=== PATIENT | male | born 1935 | race Caucasian/White ===

== ENCOUNTER 2017-01-06 09:38 | Inpatient (IN) | payer MEDICARE ==
[2017-01-06] VITALS (7 sets, daily range): BP systolic 120–153; BP diastolic 60–72; PULSE 78–95; RESP 18–20; TEMP 97.7–98.4; O2SAT 95–97
[~2017-01-06] VITALS: Ht 188 cm; Wt 111.5 kg
[~2017-01-06 09:38] MED LIST: AMLO5TAB96 PO; ASPI81 PO; SIMV20TA PO; TAB-TAB PO; ZOLP10TA3 PO
[2017-01-06] MEDS ORDERED: ASPI81CH CHEW (09:54)
[2017-01-06] MEDS ORDERED: LISI-519 PO (09:54)
[2017-01-06] MEDS ORDERED: SIMV20TA PO (09:54)
[2017-01-06] MEDS ORDERED: AMLO5TAB2 PO (09:54)
[2017-01-06] MEDS ORDERED: ZOLP10TA3 PO (09:54)
[2017-01-06] MEDS ORDERED: ASPIRIN 81 MG CHEW TAB PO ONE (10:00)
[2017-01-06] MEDS ORDERED: SODIUM CHLORIDE 0.9% FLUSH 10 ML FLUSH IVF PRN (10:00)
--- NOTE | 2017-01-06 10:01 | PD ---
HPI Chief Complaint: General Weakness Time Seen by Provider: 09:51 Travel History International Travel<30 days: No Contact w/Intl Traveler<30days: No Traveled to known affect area: No History of Present Illness HPI Patient is an 81-year-old male with history of age fibrillation on aspirin 81 mg a day presents emergency department for evaluation of shortness of breath on exertion. He states and present for the past week. States been discussing this with his combat control manager Dr. Fletcher. He states his been 5 years since she's had a stress test. Denies any chest discomfort. He does endorse some diaphoresis and states he sweating like his blood sugars getting really low. The patient states that Dr. Randall told him that an artery is blocked behind the bone on the left side of his heart and the only way to fix it would be to open his chest. 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 Patient states his been offered Coumadin the past but it scares him so he doesn't want to take it. Denies any leg swelling abdominal pain blood in the stool or emesis. States symptoms been gradually worsening. He thinks that this is all related to his age fibrillation his heart acting up. PFSH Past Medical History Hx Anticoagulant Therapy: Yes Blood Disorders: No Depression: Yes Heart Rhythm Problems: No Cancer: No Cardiovascular Problems: Yes High Cholesterol: No Cerebrovascular Accident: Yes Diabetes: Yes Patient Takes Glucophage: Yes Endocrine: No Gastrointestinal Disorders: Yes GERD: Yes Genitourinary: No Hiatal Hernia: Yes Hypertension: Yes Immune Disorder: No Implanted Vascular Access Dvce: Yes Musculoskeletal: Yes Neurologic: Yes Psychiatric: Yes Reproductive: No Respiratory: Yes Myocardial Infarction: Yes Sleep Apnea: Yes (pt uses c-pap at [facility]) Past Surgical History Abdominal Surgery: Yes (x5 abd hernia hemorroidectomy) Body Medical Devices: wire mesh to the chest" Cardiac Surgery: Yes (triple by-pass 1992) Thoracic Surgery: Yes (CABG) Other Surgery: Yes Social History Alcohol Use: Yes (couple of drinks per day) Tobacco Use: No Substance Use: No Allergies-Medications (Allergen,Severity, Reaction): Coded Allergies: No Known Allergies (Verified , 07/28/11) Reported Meds & Prescriptions Reported Meds & Active Scripts Active Reported Zolpidem (Zolpidem Tartrate) 10 Mg Tab 10 Mg PO HS PRN Simvastatin 20 Mg Tab 20 Mg PO DAILY Aspirin 81 Mg Chew 162 Mg CHEW DAILY Lisinopril 5 Mg Tab 5 Mg PO DAILY Amlodipine (Amlodipine Besylate) 5 Mg Tab 5 Mg PO DAILY Review of Systems Except as stated in HPI: all other systems reviewed are Neg Physical Exam Narrative GENERAL: Well-developed well-nourished no obvious distress SKIN: Focused skin assessment warm/dry. HEAD: Atraumatic. Normocephalic. EYES: Pupils equal and round. No scleral icterus. No injection or drainage. ENT: No nasal bleeding or discharge. Mucous membranes pink and moist. NECK: Trachea midline. No JVD. CARDIOVASCULAR: Irregularly irregular with normal rate. No murmur appreciated. No pedal edema, 2+ bilateral equal pulses in all 4 extremities. RESPIRATORY: No accessory muscle use. Clear to auscultation. Breath sounds equal bilaterally. GASTROINTESTINAL: Abdomen soft, non-tender, nondistended. Hepatic and splenic margins not palpable. MUSCULOSKELETAL: No obvious deformities. No clubbing. No cyanosis. No edema. NEUROLOGICAL: Awake and alert. No obvious cranial nerve deficits. Motor grossly within normal limits. Normal speech. PSYCHIATRIC: Appropriate mood and affect; insight and judgment normal. Data Data Last Documented VS Vital Signs Date Time Temp Pulse Resp B/P Pulse Ox O2 Delivery O2 Flow Rate FiO2 01/06/17 11:48 95 18 120/67 97 Room Air 01/06/17 09:42 98.4 Orders B-Type Natriuretic Peptide (01/06/17 10:00) Ckmb (Isoenzyme) Profile (01/06/17 10:00) Complete Blood Count With Diff (01/06/17 10:00) Comprehensive Metabolic Panel (01/06/17 10:00) Magnesium (Mg) (01/06/17 10:00) Prothrombin Time / Inr (Pt) (01/06/17 10:00) Act Partial Throm Time (Ptt) (01/06/17 10:00) Troponin I (01/06/17 10:00) Chest, Single Ap (01/06/17 10:00) Ecg Monitoring (01/06/17 10:00) Iv Access Insert/Monitor (01/06/17 10:00) Oximetry (01/06/17 10:00) Oxygen Administration (01/06/17 10:00) Aspirin Chew (Aspirin Chew) (01/06/17 10:00) Sodium Chloride 0.9% Flush (Ns Flush) (01/06/17 10:00) Electrocardiogram (01/06/17 ) CKMB (01/06/17 10:10) CKMB% (01/06/17 10:10) Sodium Chlorid 0.9% 500 Ml Inj (Ns 500 M (01/06/17 12:00) Ct Pulmonary Angiogram (01/06/17 ) Iodixanol 320 Inj (Rad Ct) (Visipaque 32 (01/06/17 13:02) Consult Vascular Surgery (01/06/17 ) Consult Cardiology (01/06/17 ) (Hub Use Only)Inp Phy Cons/Ref (01/06/17 ) Admit Order (Ed Use Only) (01/06/17 ) Place In Observation (01/06/17 ) Code Status (01/06/17 14:26) Vital Signs (Adult) Q4H (01/06/17 14:26) Activity Oob With Assistance (01/06/17 14:26) Sodium Chloride 0.9% Flush (Ns Flush) (01/06/17 14:30) Sodium Chloride 0.9% Flush (Ns Flush) (01/06/17 21:00) Acetaminophen (Tylenol) (01/06/17 14:30) Temazepam (Restoril) (01/06/17 14:30) Creatine Kinase (Cpk) (01/06/17 16:00) Creatine Kinase (Cpk) (01/06/17 22:00) Troponin I (01/06/17 16:00) Troponin I (01/06/17 22:00) Electrocardiogram (01/06/17 16:00) Electrocardiogram (01/06/17 22:00) Pt Request For Service (01/06/17 14:26) Case Management Consult (01/06/17 14:26) Scd Bilateral/Knee High CHETAN.BID (01/06/17 14:26) Viet Bilateral/Knee High CHETAN.QSHIFT (01/06/17 14:26) Acetaminophen (Tylenol) (01/06/17 14:30) Magnesium Hydroxide Liq (Milk Of Magnesi (01/06/17 14:30) Echo 2d Comp With Doppler (01/06/17 ) Myocardial Perf Pharm Sp W/Ef (01/07/17 06:00) Labs Laboratory Tests Test 01/06/17 10:10 White Blood Count 8.3 TH/MM3 Red Blood Count 5.11 MIL/MM3 Hemoglobin 17.3 GM/DL Hematocrit 50.1 % Mean Corpuscular Volume 98.0 FL Mean Corpuscular Hemoglobin 33.9 PG Mean Corpuscular Hemoglobin 34.6 % Concent Red Cell Distribution Width 13.5 % Platelet Count 202 TH/MM3 Mean Platelet Volume 7.6 FL Neutrophils (%) (Auto) 51.7 % Lymphocytes (%) (Auto) 32.8 % Monocytes (%) (Auto) 11.5 % Eosinophils (%) (Auto) 3.3 % Basophils (%) (Auto) 0.7 % Neutrophils # (Auto) 4.3 TH/MM3 Lymphocytes # (Auto) 2.7 TH/MM3 Monocytes # (Auto) 1.0 TH/MM3 Eosinophils # (Auto) 0.3 TH/MM3 Basophils # (Auto) 0.1 TH/MM3 CBC Comment DIFF FINAL Differential Comment Prothrombin Time 10.5 SEC Prothromb Time International 1.0 RATIO Ratio Activated Partial 24.8 SEC Thromboplast Time Sodium Level 136 MEQ/L Potassium Level 4.2 MEQ/L Chloride Level 101 MEQ/L Carbon Dioxide Level 25.5 MEQ/L Anion Gap 10 MEQ/L Blood Urea Nitrogen 30 MG/DL Creatinine 1.67 MG/DL Estimat Glomerular Filtration 40 ML/MIN Rate Random Glucose 120 MG/DL Calcium Level 10.1 MG/DL Magnesium Level 2.4 MG/DL Total Bilirubin 0.6 MG/DL Aspartate Amino Transf 31 U/L (AST/SGOT) Alanine Aminotransferase 48 U/L (ALT/SGPT) Alkaline Phosphatase 34 U/L Total Creatine Kinase 128 U/L Creatine Kinase MB 2.5 NG/ML Troponin I LESS THAN 0.02 NG/ML B-Type Natriuretic Peptide 27 PG/ML Total Protein 8.0 GM/DL Albumin 3.8 GM/DL [facility] Medical Decision Making Medical Screen Exam Complete: Yes Emergency Medical Condition: Yes Interpretation(s) EKG shows age fibrillation with an overall rate of 83, multiple PVCs unifocal, no concerning ST segment changes. This an abnormal EKG. Differential Diagnosis ACS, PE, WA, dehydration. Narrative Course Patient is an 81-year-old male roomed emergency Department with dyspnea on exertion and fatigue. His also endorses some diaphoresis on exertion. His labs are significant for a mild acute kidney injury with a creatinine 1.67. radiologist stress with processing technician, the patient is within windows and GFR for pulmonary blisters and study and is been so ordered. 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 This is calcified and likely been chronic. He was discussed with Dr. Valdovinos who will see in consultation. Patient is also been discussed with Dr. Cabrera's who will see and likely due to stress test and echocardiogram and hospital. Patient ultimately discussed with hospitalist for admission. He has been hemodynamically stable and has had not had any chest pain or shortness of breath while in emerged Department. Diagnosis Primary Impression: ARF (acute renal failure) Additional Impression: Exertional dyspnea Admitting Information Admitting Physician Requests: Admit Condition: Stable Pito Moran MD Jan 06, 2017 10:01
[2017-01-06 10:45] LABS: AUTOMATED NEUTROPHIL # 4.3 TH/MM3 (1.8-7.7); BASOPHIL # 0.1 TH/MM3 (0-0.2); BASOPHIL % 0.7 % (0.0-2.0); EOSINOPHIL # 0.3 TH/MM3 (0-0.4); EOSINOPHIL % 3.3 % (0.0-4.0); HEMATOCRIT 50.1 % (39.0-51.0); HEMO FLAGS DIFF FINAL; LYMPH % 32.8 % (9.0-44.0); LYMPHOCYTE # 2.7 TH/MM3 (1.0-4.8); MEAN CORPUSCULAR HEMOGLOBIN 33.9 PG (27.0-34.0); MEAN CORPUSCULAR HGB CONC 34.6 % (32.0-36.0); MONO % 11.5 % (0.0-8.0); NEUT % 51.7 % (16.0-70.0); PLATELET COUNT 202 TH/MM3 (150-450); RED BLOOD COUNT 5.11 MIL/MM3 (4.50-5.90); RED CELL DISTRIBUTION WIDTH 13.5 % (11.6-17.2); WHITE BLOOD COUNT 8.3 TH/MM3 (4.0-11.0)
[2017-01-06 10:50] LABS: APTT (PATIENT) 24.8 SEC (24.3-30.1); PROTHROMBIN TIME - PATIENT 10.5 SEC (9.8-11.6)
--- NOTE | 2017-01-06 10:55 | RADRPT ---
EXAM DATE/TIME: 01/06/2017 10:04 [facility] COMPARISON: No previous studies available for comparison. INDICATIONS : Palpitations. MEDICAL HISTORY : None. SURGICAL HISTORY : CABG. carotid surgery ENCOUNTER: Initial ACUITY: 1 day PAIN SCORE: 0/10 LOCATION: Bilateral chest FINDINGS: 2 portable frontal views of the chest show mild cardiomegaly. No significant pulmonary vascular engor gement. Lungs are clear without infiltrate or effusion. Median sternotomy wires. CONCLUSION: Cardiomegaly without acute cardiopulmonary disease. Zeke James Jr., MD on January 06, 2017 at 10:52 Board Certified Radiologist. This report was verified electronically.
[2017-01-06 10:56] LABS: ALT (GPT) 48 U/L (12-78)
[2017-01-06 10:58] LABS: ANION GAP 10 MEQ/L (5-15); AST (GOT) 31 U/L (15-37); BICARBONATE 25.5 MEQ/L (21.0-32.0); BLOOD UREA NITROGEN 30 MG/DL (7-18); CHLORIDE 101 MEQ/L (98-107); GLOMERULAR FILTRATION RATE 40 ML/MIN (>89); MAGNESIUM 2.4 MG/DL (1.5-2.5); POTASSIUM 4.2 MEQ/L (3.5-5.1); SODIUM (NA) 136 MEQ/L (136-145)
[2017-01-06 11:00] LABS: ALKALINE PHOSPHATASE 34 U/L (45-117); CREATINE KINASE 128 U/L (39-308); TOTAL BILIRUBIN ADULT 0.6 MG/DL (0.2-1.0)
[2017-01-06 11:13] LABS: CKMB 2.5 NG/ML (0.5-3.6)
[2017-01-06] MEDS ORDERED: SODIUM CHLORID 0.9% 500 ML INJ 500 ML IV ONE (12:00)
--- NOTE | 2017-01-06 12:38 | EKG ---
Date Performed: 01/06/2017 Time Performed: 09:55:06 PTAGE: 81 years EKG: ATRIAL FIBRILLATION WITH ABERRANT CONDUCTION OR VENTRICULAR PREMATURE COMPLEXES NONSPECIFIC ST & T-WAVE ABNORMALITY ABNORMAL ECG NO PREVIOUS TRACING DOCTOR: Zbigniew Dickerson Interpretating Date/Time 01/06/2017 12:35:57
[2017-01-06] MEDS ORDERED: IODIXANOL 320 MG/ML 10 ML VIAL (for Rad CT) IV ONE (13:02)
--- NOTE | 2017-01-06 13:21 | RADRPT ---
EXAM DATE/TIME: 01/06/2017 12:46 [facility] COMPARISON: No previous studies available for comparison. INDICATIONS : Shortness of breath with exhertion and general weakness. IV CONTRAST: 50 cc Visipaque (iodixanol) IV RADIATION DOSE: 23.40 CTDIvol (mGy) MEDICAL HISTORY : Cardiovascular disease. Hypertension. Syncope SURGICAL HISTORY : CABG 3 way bypass ENCOUNTER: Initial ACUITY: 1 day PAIN SCALE: 0/10 LOCATION: Bilateral chest TECHNIQUE: Volumetric scanning of the chest was performed using a pulmonary embolism protocol MIP images were re constructed. Using automated exposure control and adjustment of the mA and/or kV according to patien t size, radiation dose was kept as low as reasonably achievable to obtain optimal diagnostic quality images. DICOM format image data is available electronically for review and comparison. Follow-up recommendations for incidentally detected pulmonary nodules are based at a minimum on nodul e size and patient risk factors according to Fleischner Society Guidelines. FINDINGS: PULMONARY ARTERIES: No filling defects are seen in the pulmonary arteries through the segmental level. LUNGS: A partially calcified a 5 mm nodule laterally in the right lower lobe is overtly benign probably repr esenting a granulomatous process. There is some pleural-parenchymal interstitial changes predominantl y apices which are nonspecific but could represent early UIP. PLEURAE: Multiple subpleural cysts are seen predominantly in the apices. MEDIASTINUM: Dense atherosclerotic calcification of the coronary arteries. There is a 4.1 cm rim calcified fusifor m aneurysm of the aortic arch in the region of the left subclavian artery. Multiple coronary artery b ypass grafts emanates in the ascending thoracic aorta MUSCULOSKELETAL: Within normal limits for patient age. MISCELLANEOUS: The visualized upper abdominal organs demonstrate no acute abnormality. CONCLUSION: 1. Probable chronic changes in the lungs with subpleural cysts in the apices and some pleural parench ymal interstitial changes dependently possibly representing early UIP/fibrosis. 2. Old granulomatous disease. 3. No pulmonary embolus or acute infiltrate. 4. 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 5. Dense atherosclerotic calcification of the coronary arteries. Multiple coronary artery bypass noemi t emanating from the ascending thoracic aorta. Arvin Dsouza MD on January 06, 2017 at 13:13 Board Certified Radiologist. This report was verified electronically.
[2017-01-06] MEDS ORDERED: ACETAMINOPHEN 325 MG TAB PO PRN ×2 (14:30)
[2017-01-06] MEDS ORDERED: TEMAZEPAM 15 MG CAP PO PRN (14:30)
[2017-01-06] MEDS ORDERED: SODIUM CHLORIDE 0.9% FLUSH 10 ML FLUSH IV FLUSH PRN (14:30)
--- NOTE | 2017-01-06 14:32 | HHI.HP ---
HPI Service [facility] Primary Care Physician Non-Staff Admission Diagnosis Exertional Dyspnea, MARIANO Diagnoses: (1) Exertional dyspnea (2) ARF (acute renal failure) Chief Complaint: Shortness of breath Travel History International Travel<30 Days: No Contact w/Intl Traveler <30 Da: No Traveled to Known Affected Are: No History of Present Illness 81-year-old male with a history of diabetes type 2 SC atrial fibrillation came to the ED for evaluation of shortness of breath with exertions 10 days duration associated with cough described as dry. Patient states minimal walking brings about shortness of breath. He also reports mild substernal chest pain without any radiation. He has a history of atrial fibrillation however is not currently on any oral anticoagulation ordered and aspirin. Over the past 5 days patient lost 5 pounds and reported decreased appetite. Patient was supposed to follow up with his cardiology for a nuclear stress test this week. He denies any GI bleed and has no report of orthopnea Review of Systems Except as stated in HPI: all other systems reviewed are Neg Past Family Social History Past Medical History Depression: Yes Cardiovascular Problems: Yes Cerebrovascular Accident: Yes Diabetes: Yes Gastrointestinal Disorders: Yes GERD: Yes Hiatal Hernia: Yes Hypertension: Yes Myocardial Infarction: Yes Sleep Apnea: Yes ([facility]) Past Surgical History Abdominal Surgery: Yes (x5 abd hernia hemorroidectomy) Body Medical Devices: wire mesh to the chest" Cardiac Surgery: Yes (triple by-pass 1992) Thoracic Surgery: Yes (CABG) Other Surgery: Yes Reported Medications Zolpidem (Zolpidem Tartrate) 10 Mg Tab 10 Mg PO HS PRN Simvastatin 20 Mg Tab 20 Mg PO DAILY Aspirin 81 Mg Chew 162 Mg CHEW DAILY Lisinopril 5 Mg Tab 5 Mg PO DAILY Amlodipine (Amlodipine Besylate) 5 Mg Tab 5 Mg PO DAILY Allergies: Coded Allergies: No Known Allergies (Verified , 07/28/11) Family History Father from heart attack Mother had Alzheimer disease Social History Alcohol Use: Yes (couple of drinks per day) Tobacco Use: No Substance Use: No Physical Exam Vital Signs Vital Signs Date Time Temp Pulse Resp B/P Pulse Ox O2 Delivery O2 Flow Rate FiO2 01/06/17 11:48 95 18 120/67 97 Room Air 01/06/17 09:42 98.4 94 20 153/72 Physical Exam GENERAL: This is a well-nourished, well-developed patient, in no apparent distress. SKIN: No rashes, ecchymoses or lesions. Cool and dry. HEAD: Atraumatic. Normocephalic. No temporal or scalp tenderness. EYES: Pupils equal round and reactive. Extraocular motions intact. No scleral icterus. No injection or drainage. ENT: Nose without bleeding, purulent drainage or septal hematoma. Throat without erythema, tonsillar hypertrophy or exudate. Uvula midline. Airway patent. NECK: Trachea midline. No JVD or lymphadenopathy. Supple, nontender, no meningeal signs. CARDIOVASCULAR: Regular rate and rhythm without murmurs, gallops, or rubs. RESPIRATORY: Clear to auscultation. Breath sounds equal bilaterally. No wheezes , rales, or rhonchi. GASTROINTESTINAL: Abdomen soft, non-tender, nondistended. No hepato-splenomegaly , or palpable masses. No guarding. MUSCULOSKELETAL: Extremities without clubbing, cyanosis, or edema. No joint tenderness, effusion, or edema noted. No calf tenderness. Negative Homans sign bilaterally. NEUROLOGICAL: Awake and alert. Cranial nerves II through XII intact. Motor and sensory grossly within normal limits. Five out of 5 muscle strength in all muscle groups. Normal speech. Laboratory Laboratory Tests Test 01/06/17 10:10 White Blood Count 8.3 Red Blood Count 5.11 Hemoglobin 17.3 Hematocrit 50.1 Mean Corpuscular Volume 98.0 Mean Corpuscular Hemoglobin 33.9 Mean Corpuscular Hemoglobin 34.6 Concent Red Cell Distribution Width 13.5 Platelet Count 202 Mean Platelet Volume 7.6 Neutrophils (%) (Auto) 51.7 Lymphocytes (%) (Auto) 32.8 Monocytes (%) (Auto) 11.5 Eosinophils (%) (Auto) 3.3 Basophils (%) (Auto) 0.7 Neutrophils # (Auto) 4.3 Lymphocytes # (Auto) 2.7 Monocytes # (Auto) 1.0 Eosinophils # (Auto) 0.3 Basophils # (Auto) 0.1 CBC Comment DIFF FINAL Differential Comment Prothrombin Time 10.5 Prothromb Time International 1.0 Ratio Activated Partial 24.8 Thromboplast Time Sodium Level 136 Potassium Level 4.2 Chloride Level 101 Carbon Dioxide Level 25.5 Anion Gap 10 Blood Urea Nitrogen 30 Creatinine 1.67 Estimat Glomerular Filtration 40 Rate Random Glucose 120 Calcium Level 10.1 Magnesium Level 2.4 Total Bilirubin 0.6 Aspartate Amino Transf 31 (AST/SGOT) Alanine Aminotransferase 48 (ALT/SGPT) Alkaline Phosphatase 34 Total Creatine Kinase 128 Creatine Kinase MB 2.5 Troponin I LESS THAN 0.02 B-Type Natriuretic Peptide 27 Total Protein 8.0 Albumin 3.8 Result Diagram: 01/06/17 1010 01/06/17 1010 Imaging Last Impressions Chest X-Ray 01/06/17 1000 Signed Impressions: Service Date/Time: December 10:04 - CONCLUSION: Cardiomegaly without acute cardiopulmonary disease. Zeke James Jr., MD CT Angiography 01/06/17 0000 Signed Impressions: Service Date/Time: December 12:46 - CONCLUSION: 1. Probable chronic changes in the lungs with subpleural cysts in the apices and some pleural parenchymal interstitial changes dependently possibly representing early UIP/fibrosis. 2. Old granulomatous disease. 3. No pulmonary embolus or acute infiltrate. 4. 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 5. Dense atherosclerotic calcification of the coronary arteries. Multiple coronary artery bypass graft emanating from the ascending thoracic aorta. Arvin Dsouza MD Assessment and Plan Problem List: (1) Exertional dyspnea ICD Code: R06.09 Status: Acute (2) ARF (acute renal failure) ICD Code: N17.9 Status: Acute (3) TAMI (obstructive sleep apnea) ICD Code: G47.33 Status: Acute (4) Benign hypertension ICD Code: I10 Status: Acute (5) Hyperlipidemia ICD Code: E78.5 Status: Acute (6) Chronic atrial fibrillation ICD Code: I48.2 Status: Acute (7) Atypical chest pain ICD Code: R07.89 Status: Acute Assessment and Plan 81-year-old man with Atypical chest pain Exertional dyspnea Chest x-ray noted in review by me without any cardio pulmonary disease CTA ruled out PE Cardiology consultation pending Check 2-D echo, DuoNeb when necessary ACS rule out per protocol with serial cardiac enzyme and EKGs 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-finding on CT angiography Vascular surgery consultation pending Acute renal failure Prerenal secondary to dehydration Gentle IV fluid hydration, monitor BUN and creatinine and avoid all nephrotoxic drugs Chronic atrial fibrillation Not on oral anticoagulation as patient still undecided Continue with daily aspirin Hemoconcentration Secondary to dehydration Monitor H&H Obstructive sleep apnea CPAP/BiPAP at night Hypertension Resume Norvasc, lisinopril Hyperlipidemia Resume statin DVT prophylaxis: Bilateral SCDs Code Status Full code Discussed Condition With Patient, ED physician Warren Campos MD Jan 06, 2017 14:32
[2017-01-06] MEDS ORDERED: GLUCAGON 1 MG/ML VIAL OTHER PRN (15:30)
[2017-01-06] MEDS ORDERED: RESP: ALBUTEROL 2.5 MG/IPRATROPIUM 0.5 MG NEB (PRN) NEB (15:30)
[2017-01-06] MEDS ORDERED: DEXTROSE 50% IN WATER 50 ML VIAL(D50) IV PRN (15:30)
[2017-01-06] MEDS: INSULIN ASPART SUPPLEMENTAL SCALE SQ SCH ×2 (16:00→20:27)
--- NOTE | 2017-01-06 16:44 | ECHRPT ---
Indication: Shortness of breath CONCLUSIONS LV size upper normal. Mild concentric left ventricular hypertrophy. The left ventricular systolic function is probaly low normal about 50%. No obvios wall motion abnormalities.Mildly enlarged aortic root Mitral annular calcification is present. Mild mitral valve regurgitation. Trace aortic valve regurgitation. Aortic valve sclerosis is present. The pulmonary valve is not well visualized. BP: / HR: Rhythm: MEASUREMENTS (Male / Female) Normal Values Technical Quality:Good 2D ECHO LV Diastolic Diameter PLAX 5.8 cm 4.2 - 5.9 / 3.9 - 5.3 cm LV Systolic Diameter PLAX 5.0 cm IVS Diastolic Thickness 1.2 cm 0.6 - 1.0 / 0.6 - 0.9 cm LVPW Diastolic Thickness 1.0 cm 0.6 - 1.0 / 0.6 - 0.9 cm LV Relative Wall Thickness 0.4 RV Internal Dim ED PLAX 2.3 cm LA Systolic Diameter LX 4.1 cm 3.0 - 4.0 / 2.7 - 3.8 cm M-MODE Aortic Root Diameter MM 4.1 cm AV Cusp Separation MM 2.3 cm DOPPLER Mitral E Point Velocity 80.9 cm/s Mitral A Point Velocity 25.7 cm/s Mitral E to A Ratio 3.1 TR Peak Velocity 210.0 cm/s TR Peak Gradient 17.6 mmHg FINDINGS LEFT VENTRICLE LV size upper normal. Mild concentric left ventricular hypertrophy. The left ventricular systolic function is probaly low normal about 50%. No obvios wall motion abnormalities. RIGHT VENTRICLE Normal right ventricular size and systolic function. LEFT ATRIUM The left atrial size is normal. RIGHT ATRIUM The right atrial size is normal. ATRIAL SEPTUM Normal atrial septal thickness without atrial level shunting by limited color doppler interrogation. AORTA Mildly enlarged aortic root MITRAL VALVE Mitral annular calcification is present. Mild mitral valve regurgitation. AORTIC VALVE Trace aortic valve regurgitation. Aortic valve sclerosis is present. TRICUSPID VALVE Structurally normal tricuspid valve. No tricuspid valve stenosis or regurgitation. PULMONARY VALVE The pulmonary valve is not well visualized. VESSELS The inferior vena cava is normal in size. PERICARDIUM No pericardial effusion. Sawyer Duron MD (Electronically Signed) Final Date:06 January 2017 16:43
--- NOTE | 2017-01-06 17:35 | MB ---
cc: CORRINA TORRES M.D., GLENN H. M.D. DATE OF CONSULTATION: 01/06/2017 REASON FOR CONSULTATION: Cardiology consult. CHIEF COMPLAINT: Shortness of breath that has become progressively severe. HISTORY OF PRESENT ILLNESS: Carley Stoner is a 81 year-old man, known to my colleague Dr. Fletcher in fact Dr. Fletcher just saw him in the office on January 03 and was going to get an echocardiogram and nuclear stress test but before this could be preformed the patient has gotten worse. He is noticing profound shortness of breath and weakness with just minimal levels of activity. He feels exhausted and he almost collapsed yesterday. He saw his primary care physician this morning, he was feeling very poorly. He was taken by ambulance to [place]. He has known coronary disease. He gets occasional chest pain in the left parasternal region but this is infrequent he does not have orthopnea, Paroxysmal nocturnal dyspnea, he has no significant edema. He has shortness of breath however, with minimal activity. He has sleep apnea but is using his C-PAP faithfully. He has had no syncope or pre syncope. He has had very poor appetite. He tries to swallow solid food it gets stuck in the lower esophagus region. He has known S reflux. He says it scoped about a year ago but he does not know the name of the doctor who did the scope. He has a JOSE'S vas score of five but despite that has refused anticoagulation and with his is upset with him and wants him to begin anticoagulation. I explained that a JOSE VAS score of five indicates a 50/50 chance a stroke in the next 8 years and that caught his attention so maybe he will change his mind. He has extensive past medical history which is documented below. His primary care physician is Eryn Orellana. PAST MEDICAL HISTORY: 1. his past medical history includes sleep apnea. He uses C-PAP faithly. 2. Chronic atrial fibrillation. 3. Possible cardiomyopathy with an ejection fraction of 45-50% on echo from october of 2014. 4. Known carotid disease with a previous left carotid endarterectomy and a known occluded right internal carotid artery. 5. Chronic obstructive pulmonary disease. 6. Colon polyps. 7. Gout. 8. Type 2 diabetes. 9. Gastroesophageal reflux disease. 10. Hyperlipidemia 11. Hypertension 12. Impotence. 13. Obesity. 14. Arthritis. 15. Severe peripheral neuropathy 16. Vertigo 17. Coronary artery disease. 18. He had bypass surgery in 1993. 19. His last catheterization was performed by Dr. Berrios. He had a DAMON to the LAD and patent vein graft to the circumflex marginal branch with disease of a secondary branch and high-grade complex disease of the vein graft to diagonal for which medical therapy was elected. MEDICATIONS: 1. His medication list from the office he says is more accurate then the one he presented at the Hospital. 2. Medications in the office include; 3. Amlodipine 10 mg 4. aspirin 81 mg 5. Duloxetine 60 mg daily 6. Gabapentin 100 mg daily 7. Glimepiride 1 mg daily 8. Hydrochlorothiazide 25 mg daily 9. Lisinopril 40 mg daily 10. Magnesium 500 mg daily 11. Metoprolol succinate 50 mg daily supplement. 12. Omeprazole 20 mg daily. ALLERGIES None FAMILY HISTORY: Family history is positive for coronary disease in his father. SOCIAL HISTORY: Social history he is . Denies alcohol. He smoked a pack a day from age 17 to age 46. REVIEW OF SYSTEMS GASTROINTESTINAL: GI review of systems is positive for symptoms that suggest possible stricture. EXTREMITIES: He has severe burning and numbness in his legs from his peripheral neuropathy. He gets occasional heart hernias joint pains is difficulty sleeping and difficulty eating, The remaining review of systems is negative. PHYSICAL EXAMINATION: IN GENERAL: Physical exam reveals an obese white male resting supine in no respiratory distress. VITAL SIGNS: His vital signs are charted. HEAD, EYES, EARS, NOSE, AND THROAT: Exam is unremarkable. NECK: The neck shows no JVD. There is a soft right carotid bruit. CHEST: Chest is clear, I heard no wheezes, no rales or rhonchi. CARDIOVASCULAR SYSTEM: Cardiac exam PMI is not palpable. S1-S2 were irregular rate and rhythm. I cannot appreciate murmurs or gallops. ABDOMEN: Abdomen is obese, soft, nontender with no masses. EXTREMITIES: Reveal no clubbing, cyanosis or edema. Pulses are unremarkable. RADIOLOGIC: EKG showing atrial fibrillation controlled ventricular rate to some nonspecific ST-T wave changes which aren't dramatically different from the ones he has had previous. LABORATORY FINDINGS: His creatinine hears elevated at 1.67 on those baseline hematocrit 50. Troponin is negative. Chest CT showing some interstitial changes. 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 Chest x-ray Shows cardiomegaly. IMPRESSION Profound dyspnea and exhaustion, etiology is unclear, most likely the most likely would suspect underlying heart disease or lung disease causing it. He does not have typical unstable anginal type symptoms. He does not have symptoms of heart failure. I.e. no orthopnea, no paroxysmal nocturnal dyspnea, A CT of the chest findings of interstitial changes might be significant here. He has not had pulmonary function test performed yet. An echo are already being performed. I am latex fashions designer to read that and I will read that in a short while. A nuclear stress test has been ordered which were followed be tomorrow. He is obese enough that it may need to be performed over 2 days instead of one day. The initial troponin is negative with no evidence of an MN. He has a JOSE Vas score of 5 and really should be on anticoagulation. He has been reluctant in the past, I have laid the ground work, possibly for a change of decision on his part he will follow that up with Dr. Fletcher. His meds that were prescribed at the time of this admission and her different than once a doctor eugenia has of his office and I have corrected all those, the office records do not include the statin. I see simvastatin was prescribed here but that interacts with his a calcium channel blockers, so I am changing that to atorvastatin 10 mg. I am not reordering his 25 mg hydrochlorothiazide in view of the elevated creatinine. Dr. Fletcher will be available to followup tomorrow. I have already texted him and received a response. MD SETH Becerra/shiva /4:11 PM /5:13 PM
--- NOTE | 2017-01-06 18:58 | PD.CAR.PN ---
CVT Progress Note Subjective/Hospital Course: Patient seen and evaluated Full consult dictated Thoracic aortic aneurysm is asymptomatic at this time and only 4 cm in diameter. It should be carefully washed and patient will follow-up in my office in about 6 months for the same. As far as the patient's symptoms are concerned these are unrelated to the aneurysm and the there is nothing for me to do at this time. Thanks J Objective: Vital Signs Date Time Temp Pulse Resp B/P Pulse Ox O2 Delivery O2 Flow Rate FiO2 01/06/17 17:42 92 01/06/17 11:48 95 18 120/67 97 Room Air 01/06/17 09:42 98.4 94 20 153/72 Labs: Laboratory Tests Test 01/06/17 10:10 White Blood Count 8.3 TH/MM3 (4.0-11.0) Red Blood Count 5.11 MIL/MM3 (4.50-5.90) Hemoglobin 17.3 GM/DL (13.0-17.0) Hematocrit 50.1 % (39.0-51.0) Mean Corpuscular Volume 98.0 FL (80.0-100.0) Mean Corpuscular Hemoglobin 33.9 PG (27.0-34.0) Mean Corpuscular Hemoglobin 34.6 % Concent (32.0-36.0) Red Cell Distribution Width 13.5 % (11.6-17.2) Platelet Count 202 TH/MM3 (150-450) Mean Platelet Volume 7.6 FL (7.0-11.0) Neutrophils (%) (Auto) 51.7 % (16.0-70.0) Lymphocytes (%) (Auto) 32.8 % (9.0-44.0) Monocytes (%) (Auto) 11.5 % (0.0-8.0) Eosinophils (%) (Auto) 3.3 % (0.0-4.0) Basophils (%) (Auto) 0.7 % (0.0-2.0) Neutrophils # (Auto) 4.3 TH/MM3 (1.8-7.7) Lymphocytes # (Auto) 2.7 TH/MM3 (1.0-4.8) Monocytes # (Auto) 1.0 TH/MM3 (0-0.9) Eosinophils # (Auto) 0.3 TH/MM3 (0-0.4) Basophils # (Auto) 0.1 TH/MM3 (0-0.2) CBC Comment DIFF FINAL Differential Comment Prothrombin Time 10.5 SEC (9.8-11.6) Prothromb Time International 1.0 RATIO Ratio Activated Partial 24.8 SEC Thromboplast Time (24.3-30.1) Sodium Level 136 MEQ/L (136-145) Potassium Level 4.2 MEQ/L (3.5-5.1) Chloride Level 101 MEQ/L (98-107) Carbon Dioxide Level 25.5 MEQ/L (21.0-32.0) Anion Gap 10 MEQ/L (5-15) Blood Urea Nitrogen 30 MG/DL (7-18) Creatinine 1.67 MG/DL (0.60-1.30) Estimat Glomerular Filtration 40 ML/MIN (>89) Rate Random Glucose 120 MG/DL (74-106) Calcium Level 10.1 MG/DL (8.5-10.1) Magnesium Level 2.4 MG/DL (1.5-2.5) Total Bilirubin 0.6 MG/DL (0.2-1.0) Aspartate Amino Transf 31 U/L (15-37) (AST/SGOT) Alanine Aminotransferase 48 U/L (12-78) (ALT/SGPT) Alkaline Phosphatase 34 U/L (45-117) Total Creatine Kinase 128 U/L (39-308) Creatine Kinase MB 2.5 NG/ML (0.5-3.6) Troponin I LESS THAN 0.02 NG/ML (0.02-0.05) B-Type Natriuretic Peptide 27 PG/ML (0-100) Total Protein 8.0 GM/DL (6.4-8.2) Albumin 3.8 GM/DL (3.4-5.0) Result Diagram: 01/06/17 1010 01/06/17 1010 Meredith Chen MD Jan 06, 2017 18:58
[2017-01-06] MEDS ORDERED: CYMB60CA PO (20:19)
[2017-01-06] MEDS ORDERED: GABA300C5 PO (20:20)
[2017-01-06] MEDS: SODIUM CHLORIDE 0.9% FLUSH 10 ML FLUSH IV FLUSH SCH (20:23)
[2017-01-06] MEDS: GABAPENTIN 100 MG CAP PO SCH (20:23)
[2017-01-06] MEDS ORDERED: GLIM1TAB PO (20:28)
--- NOTE | 2017-01-06 20:39 | MB ---
cc: ANDREW LI MD DATE OF CONSULTATION 01/06/2017 REASON FOR CONSULTATION Thoracic aortic aneurysm HISTORY OF PRESENT ILLNESS This pleasant 81-year-old gentleman presents to the emergency room with shortness of breath, palpitations, sweats and general weakness. Incidentally, the patient is found to have a thoracic aortic aneurysm measuring about 4 cm in diameter. Question arises about the nature of this disease and possible remedy. PAST MEDICAL HISTORY 1. Coronary artery disease and chronic atrial fibrillation and he is being seen by Dr. Fletcher and just saw him the other day. Scheduled him for an echo and possible catheterization. Now the patient has gotten worse so there he is. 2. Cardiomyopathy 3. Carotid artery disease with a right carotid occlusion and left carotid endarterectomy 4. COPD, 5. Hyperlipidemia, 6. Hypertension, 7. Obesity, 8. Peripheral neuropathy PAST SURGICAL HISTORY Coronary artery bypass surgery in 1993 and then carotid endarterectomy a few years ago by Dr. Aldrich. MEDICATIONS Can be found on the record. The patient is not on anticoagulation. He was apparently on Eliquis, but he saw a commercial for Esteban and stopped Eliquis. I told him that was probably not a very good idea and he should go back on Eliquis so we will see what happens there. ALLERGIES No allergies. SOCIAL HISTORY The patient since stopped smoking many years ago. 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 PHYSICAL EXAMINATION GENERAL: A pleasant 89-year-old gentleman awake, alert, oriented. HEENT: Normocephalic. No trauma to the head. Pupils equally reactive. Extraocular muscles intact. NECK: Supple. Left-sided pre-sternocleidomastoid scar from the carotid endarterectomy. HEART: Irregular rhythm. The patient is in slow A. fib. Bilateral breath sounds decreased over both lung mendes due to moderate degree of COPD, but probably also due to the fact the patient is obese. ABDOMEN: Soft. Active bowel sounds. EXTREMITIES: Grossly within normal limits. Patient has palpable femoral pulses and dorsalis pedis, posterior tibial by Doppler. No signs of acute vascular deficit. BACK: Normal. IMPRESSION/RECOMMENDATIONS I reviewed laboratory notes and diagnostic procedures. The gentleman indeed has coronary problems which are being addressed as we speak. On the other hand, a CT of the chest reveals about a 4 cm in diameter thoracic aortic aneurysm arising just distal to the subclavian artery. This is very calcified and fairly stable. As far as this being an issue, at this point this is not symptomatic. Patient's symptomatology does not arise from this aneurysm. 4 cm aneurysm is obviously to be observed, but there is no need to stent it now or do anything with it. In order to assess whether the patient actually would qualify for endovascular stenting, I would have to have a CTA with measurements but either way this is a moot point right now because 4 cm aneurysm that is asymptomatic can be safely watched. As far as this is concerned, the patient should follow-up in about six months with a repeat CTA which would then show us if this thing is growing or it is stable. Right now nothing to add from vascular point. I thank you much for referral. Andrew ADAMSON/ /6:31 PM /8:23 PM
[2017-01-06] MEDS: DULoxetine HCl DR 60 MG CAP PO SCH (22:20)
[2017-01-06] MEDS: ZOLPIDEM TARTRATE 10 MG TAB PO PRN (22:20)
[2017-01-07] VITALS (9 sets, daily range): BP systolic 133–165; BP diastolic 61–95; PULSE 70–104; RESP 14–18; TEMP 97.5–98.4; O2SAT 95–99
[2017-01-07 04:15] LABS: CREATINE KINASE 116 U/L (39-308)
[2017-01-07] MEDS: INSULIN ASPART SUPPLEMENTAL SCALE SQ SCH ×4 (06:49→20:23)
[2017-01-07] MEDS: DULoxetine HCl DR 60 MG CAP PO SCH (07:47)
[2017-01-07] MEDS: GLIMEPIRIDE 1 MG TAB PO SCH (07:47)
[2017-01-07] MEDS: PANTOPRAZOLE SOD 20 MG DELAYED RELEASE TAB PO SCH (07:47)
[2017-01-07] MEDS: ASPIRIN 81 MG CHEW TAB PO SCH (07:48)
[2017-01-07] MEDS: ATORVASTATIN 10 MG TAB PO SCH (07:48)
[2017-01-07] MEDS: GABAPENTIN 100 MG CAP PO SCH ×2 (07:49→20:15)
[2017-01-07] MEDS: SODIUM CHLORIDE 0.9% FLUSH 10 ML FLUSH IV FLUSH SCH ×2 (07:51→20:19)
[2017-01-07] MEDS: LISINOPRIL 20 MG TAB PO SCH (07:51)
[2017-01-07] MEDS: SODIUM CHLOR 0.9% 1000 ML INJ 1,000 ML IV SCH ×3 (07:51→20:20)
--- NOTE | 2017-01-07 08:37 | PD.CARD.PN ---
Subjective Subjective Remarks Dyspnea better today. No PND, orthopnea. No CP this morning. Denies dizziness, palpitations. Objective Medications Item Value Date Time Metoprolol 50 mg 01/07/17 0900 Succinate DAILY/PO (Toprol Xl) Lisinopril 40 mg 01/07/17 0900 (Prinivil) DAILY/PO 01/07/17 0751 Amlodipine 10 mg 01/07/17 0900 Besylate DAILY/PO 01/07/17 0749 (Norvasc) Atorvastatin 10 mg 01/07/17 0900 Calcium DAILY/PO 01/07/17 0748 (Lipitor) Aspirin 81 mg 01/07/17 0900 (Aspirin Chew) DAILY/PO 01/07/17 0748 Vital Signs / I&O Vital Signs Date Time Temp Pulse Resp B/P Pulse Ox O2 Delivery O2 Flow Rate FiO2 01/07/17 07:20 97.6 82 14 165/77 96 01/07/17 04:14 104 01/07/17 03:01 98.0 86 18 133/69 96 01/07/17 00:50 103 01/06/17 23:28 98.0 83 18 130/66 96 01/06/17 23:00 97 21 01/06/17 20:00 96 01/06/17 19:26 97.7 78 18 133/60 95 01/06/17 17:42 92 01/06/17 11:48 95 18 120/67 97 Room Air 01/06/17 09:42 98.4 94 20 153/72 Physical Exam GENERAL: Well developed, well nourished. No acute distress. HEENT: Jugular venous pressure is normal. CHEST: Lungs clear to auscultation bilaterally. Unlabored respiratory effort. CARDIAC: Irregular rate and rhythm without S3, S4, or murmur. ABDOMEN: Soft, nontender, no hepatosplenomegaly. Bowel sounds present. EXTREMITIES: No clubbing, cyanosis, or edema. Laboratory Laboratory Tests Test 01/06/17 01/06/17 01/07/17 10:10 19:33 03:29 White Blood Count 8.3 TH/MM3 Red Blood Count 5.11 MIL/MM3 Hemoglobin 17.3 GM/DL Hematocrit 50.1 % Mean Corpuscular Volume 98.0 FL Mean Corpuscular Hemoglobin 33.9 PG Mean Corpuscular Hemoglobin 34.6 % Concent Red Cell Distribution Width 13.5 % Platelet Count 202 TH/MM3 Mean Platelet Volume 7.6 FL Neutrophils (%) (Auto) 51.7 % Lymphocytes (%) (Auto) 32.8 % Monocytes (%) (Auto) 11.5 % Eosinophils (%) (Auto) 3.3 % Basophils (%) (Auto) 0.7 % Neutrophils # (Auto) 4.3 TH/MM3 Lymphocytes # (Auto) 2.7 TH/MM3 Monocytes # (Auto) 1.0 TH/MM3 Eosinophils # (Auto) 0.3 TH/MM3 Basophils # (Auto) 0.1 TH/MM3 CBC Comment DIFF FINAL Differential Comment Prothrombin Time 10.5 SEC Prothromb Time International 1.0 RATIO Ratio Activated Partial 24.8 SEC Thromboplast Time Sodium Level 136 MEQ/L Potassium Level 4.2 MEQ/L Chloride Level 101 MEQ/L Carbon Dioxide Level 25.5 MEQ/L Anion Gap 10 MEQ/L Blood Urea Nitrogen 30 MG/DL Creatinine 1.67 MG/DL Estimat Glomerular Filtration 40 ML/MIN Rate Random Glucose 120 MG/DL Calcium Level 10.1 MG/DL Magnesium Level 2.4 MG/DL Total Bilirubin 0.6 MG/DL Aspartate Amino Transf 31 U/L (AST/SGOT) Alanine Aminotransferase 48 U/L (ALT/SGPT) Alkaline Phosphatase 34 U/L Total Creatine Kinase 128 U/L 105 U/L 116 U/L Creatine Kinase MB 2.5 NG/ML Troponin I LESS THAN 0.02 0.02 NG/ML LESS THAN 0.02 NG/ML NG/ML B-Type Natriuretic Peptide 27 PG/ML Total Protein 8.0 GM/DL Albumin 3.8 GM/DL Imaging Last 48 hours Impressions Chest X-Ray 01/06/17 1000 Signed Impressions: Service Date/Time: December 10:04 - CONCLUSION: Cardiomegaly without acute cardiopulmonary disease. Zeke James Jr., MD CT Angiography 01/06/17 0000 Signed Impressions: Service Date/Time: December 12:46 - CONCLUSION: 1. Probable chronic changes in the lungs with subpleural cysts in the apices and some pleural parenchymal interstitial changes dependently possibly representing early UIP/fibrosis. 2. Old granulomatous disease. 3. No pulmonary embolus or acute infiltrate. 4. 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 5. Dense atherosclerotic calcification of the coronary arteries. Multiple coronary artery bypass graft emanating from the ascending thoracic aorta. Arvin Dsouza MD Assessment and Plan Problem List: (1) CAD (coronary artery disease) Assessment and Plan: Stable overnight. Cardiac enzymes negative for GA. Patient with several week history of atypical CP's, often lasting most of the day, no relationship to exertion. Patient with known occluded ungrafted RCA as well as severely diseased SV to diagonal which was treated medically years ago by Dr. Berrios. REC await nuclear stress test; unless large amount of lateral or anterior ischemia demonstrated, rec trial of medical therapy, especially with renal insufficiency (2) Exertional dyspnea Assessment and Plan: Dyspnea better today. Unclear etiology for dyspnea. No other signs or symptoms of CHF. EF ~50% by echo, unchanged from previous exams. Await nuclear stress test. (3) Chronic atrial fibrillation Assessment and Plan: Stable, chronic atrial fib. No HR control issues. Patient has repeatedly declined anticoagulation therapy in the past, though now states he will give it some thought. Continue daily aspirin. (4) Hypertension Assessment and Plan: Fluctuating, mostly normal BP's. Continue to monitor. Code Status full code Discussed Condition With patient Problem Qualifiers (1) CAD (coronary artery disease): Qualified Code: I25.119 - Coronary artery disease involving [place] coronary artery of [place] heart with angina pectoris (2) Hypertension: Qualified Code: I10 - Essential hypertension Sathish Fletcher MD Jan 07, 2017 08:37
[2017-01-07] MEDS ORDERED: LISINOPRIL 5 MG TAB PO SCH (09:00)
[2017-01-07] MEDS ORDERED: ASPIRIN 81 MG CHEW TAB CHEW SCH (09:00)
[2017-01-07] MEDS ORDERED: amLODIPine BESYLATE 5 MG TAB PO SCH (09:00)
[2017-01-07] MEDS ORDERED: NON-FORMULARY DRUG (Simvastatin 20 MG) PO SCH (09:00)
--- NOTE | 2017-01-07 09:19 | HHI.PR ---
Subjective Remarks Follow-up atypical chest pain/dyspnea 01/07/17-patient seen and examined, reports significant improvement of shortness of breath as well as chest pain. No acute event overnight currently nothing by mouth pending nuclear stress test. Case discussed with Dr. Fletcher Objective Vitals Vital Signs Date Time Temp Pulse Resp B/P Pulse Ox O2 Delivery O2 Flow Rate FiO2 01/07/17 07:20 97.6 82 14 165/77 96 01/07/17 04:14 104 01/07/17 03:01 98.0 86 18 133/69 96 01/07/17 00:50 103 01/06/17 23:28 98.0 83 18 130/66 96 01/06/17 23:00 97 21 01/06/17 20:00 96 01/06/17 19:26 97.7 78 18 133/60 95 01/06/17 17:42 92 01/06/17 11:48 95 18 120/67 97 Room Air 01/06/17 09:42 98.4 94 20 153/72 Result Diagram: 01/06/17 1010 01/06/17 1010 Imaging Last Impressions Chest X-Ray 01/06/17 1000 Signed Impressions: Service Date/Time: December 10:04 - CONCLUSION: Cardiomegaly without acute cardiopulmonary disease. Zeke James Jr., MD CT Angiography 01/06/17 0000 Signed Impressions: Service Date/Time: December 12:46 - CONCLUSION: 1. Probable chronic changes in the lungs with subpleural cysts in the apices and some pleural parenchymal interstitial changes dependently possibly representing early UIP/fibrosis. 2. Old granulomatous disease. 3. No pulmonary embolus or acute infiltrate. 4. 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 5. Dense atherosclerotic calcification of the coronary arteries. Multiple coronary artery bypass graft emanating from the ascending thoracic aorta. Arvin Dsouza MD Objective Remarks GENERAL: NAD SKIN: Warm and dry. HEAD: Normocephalic. EYES: No scleral icterus. No injection or drainage. NECK: Supple, trachea midline. No JVD or lymphadenopathy. CARDIOVASCULAR: Regular rate and rhythm without murmurs, gallops, or rubs. RESPIRATORY: Breath sounds equal bilaterally. No accessory muscle use. GASTROINTESTINAL: Abdomen soft, non-tender, nondistended. MUSCULOSKELETAL: No cyanosis, or edema. BACK: Nontender without obvious deformity. No CVA tenderness. A/P Problem List: (1) Exertional dyspnea ICD Code: R06.09 Status: Acute (2) ARF (acute renal failure) ICD Code: N17.9 Status: Acute (3) TAMI (obstructive sleep apnea) ICD Code: G47.33 Status: Acute (4) Benign hypertension ICD Code: I10 Status: Acute (5) Hyperlipidemia ICD Code: E78.5 Status: Acute (6) Chronic atrial fibrillation ICD Code: I48.2 Status: Acute Assessment and Plan 81-year-old man with Exertional dyspnea Atypical chest pain Chest x-ray without any cardio pulmonary disease CTA ruled out PE Cardiology consultation appreciated 2-D echo with EF 50%, DuoNeb when necessary ACS ruled out per protocol with serial cardiac enzyme and EKGs Plan for nuclear stress test today 01/07/17 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-finding on CT angiography Vascular surgery consultation appreciated and continue observation Acute renal failure Prerenal secondary to dehydration Gentle IV fluid hydration, monitor BUN and creatinine and avoid all nephrotoxic drugs Chronic atrial fibrillation Not on oral anticoagulation as patient still undecided Continue with daily aspirin Hemoconcentration Secondary to dehydration Monitor H&H Obstructive sleep apnea CPAP/BiPAP at night Hypertension Continue Norvasc, lisinopril Hyperlipidemia Continue statin DVT prophylaxis: Bilateral SCDs Warren Campos MD Jan 07, 2017 09:19
[2017-01-07] MEDS ORDERED: REGADENOSON INJ 0.4 MG/5 ML SYR ONE (09:29)
[2017-01-07] MEDS: METOPROLOL SUCCINATE 50 MG EXTENDED RELEASE TAB PO SCH (10:43)
--- NOTE | 2017-01-07 11:08 | RADRPT ---
EXAM DATE/TIME: 01/07/2017 09:06 [facility] COMPARISON: No previous studies available for comparison. INDICATIONS : Myocardial infarction. Atrial fibrillation. DOSE: 34.5 mCi Tc99m Myoview at stress. 10.2 mCi Tc99m Myoview at rest. 0.4 mg Lexiscan STRESS SYMPTOMS: Shortness of breath. EJECTION FRACTION: 25% MEDICAL HISTORY : Congestive hearrt failure. Hypertension. Cardiomegaly. SURGICAL HISTORY : Inguinal hernia repair. CABG ENCOUNTER: Initial ACUITY: 1 day PAIN SCALE: 2/10 LOCATION: Midsternal chest TECHNIQUE: The patient underwent pharmacologic stress with infusion of prescribed dose. Continuous ECG tracing was monitored during stress. Gated SPECT imaging was performed after stress and conventional SPECT i maging was performed at rest. The examination was performed on a SPECT/CT scanner, both attenuation and non-corrected datasets were reviewed. FINDINGS: DISTRIBUTION: The maximum perfused segment at stress is in the septal wall. PERFUSION STUDY: The pattern of perfusion at stress demonstrates reduction in perfusion to the anterior wall and later al wall with moderate to significant redistribution during stress. The septal wall appears intact. Th ere is a fixed defect in posterior basal wall due to old infarction. GATED STUDY: There is significant hypokinesis septal wall could be seen in post CABG patient's and there is hypoki nesis of the other wolff. CONCLUSION: Significant reduction in ejection fraction and significant ischemia in the anterior and lateral wolff . RISK CATEGORY: High (>3% Annual Mortality Rate) William Doshi MD on January 07, 2017 at 11:02 Board Certified Radiologist. This report was verified electronically.
[2017-01-07] MEDS ORDERED: diphenhydrAMINE HCL 50 MG CAP PO SCH (12:00)
[2017-01-07] MEDS ORDERED: DIAZEPAM 10 MG TAB PO SCH (12:00)
[2017-01-07] MEDS ORDERED: ASPIRIN 325 MG TAB PO SCH (12:00)
--- NOTE | 2017-01-07 13:42 | HHI.PR ---
Addendum to Inpatient Note Addendum Reason: Additional Documentation Additional Information Patient with now positive stress test therefore will require left heart catheterizations this coming 01/10/17 Warren Campos MD Jan 07, 2017 13:42
[2017-01-08] VITALS (25 sets, daily range): BP systolic 127–149; BP diastolic 69–85; PULSE 45–91; RESP 16–19; TEMP 97.7–98.9; O2SAT 93–98
[2017-01-08] MEDS: ZOLPIDEM TARTRATE 10 MG TAB PO PRN ×2 (00:09→22:16)
[2017-01-08] MEDS: MAGNESIUM HYDROXIDE SUSP 30 ML CUP PO PRN (00:09)
[2017-01-08] MEDS: DULoxetine HCl DR 60 MG CAP PO SCH ×3 (00:09→22:16)
[2017-01-08] MEDS: SODIUM CHLOR 0.9% 1000 ML INJ 1,000 ML IV SCH ×3 (01:08→13:33)
[2017-01-08] MEDS: INSULIN ASPART SUPPLEMENTAL SCALE SQ SCH ×4 (07:00→21:00)
[2017-01-08 07:56] LABS: BICARBONATE 22.7 MEQ/L (21.0-32.0); POTASSIUM 3.9 MEQ/L (3.5-5.1)
[2017-01-08] MEDS: ASPIRIN 81 MG CHEW TAB PO SCH (08:34)
[2017-01-08] MEDS: LISINOPRIL 20 MG TAB PO SCH (08:34)
[2017-01-08] MEDS: PANTOPRAZOLE SOD 20 MG DELAYED RELEASE TAB PO SCH (08:34)
[2017-01-08] MEDS: GABAPENTIN 100 MG CAP PO SCH (08:34)
[2017-01-08] MEDS: GLIMEPIRIDE 1 MG TAB PO SCH (08:34)
[2017-01-08] MEDS: ATORVASTATIN 10 MG TAB PO SCH (08:34)
[2017-01-08] MEDS: SODIUM CHLORIDE 0.9% FLUSH 10 ML FLUSH IV FLUSH SCH ×2 (08:35→21:00)
[2017-01-08] MEDS: METOPROLOL SUCCINATE 50 MG EXTENDED RELEASE TAB PO SCH (08:39)
--- NOTE | 2017-01-08 08:57 | HHI.PR ---
Subjective Remarks Follow-up atypical chest pain/dyspnea 01/07/17-patient seen and examined, reports significant improvement of shortness of breath as well as chest pain. No acute event overnight currently nothing by mouth pending nuclear stress test. Case discussed with Dr. Fletcher 01/08/17-patient seen and examined,he had a positive stress test on 01/07; denies any chest pain or shortness of breath this AM Objective Vitals Vital Signs Date Time Temp Pulse Resp B/P Pulse Ox O2 Delivery O2 Flow Rate FiO2 01/08/17 06:12 91 01/08/17 05:02 73 01/08/17 04:00 67 01/08/17 03:54 97.8 70 19 127/73 97 01/08/17 03:00 45 01/08/17 02:00 59 01/08/17 01:20 76 01/08/17 00:00 74 01/07/17 23:10 71 01/07/17 23:10 97.5 74 18 150/67 99 01/07/17 19:17 98.0 76 18 135/75 95 01/07/17 17:15 70 01/07/17 15:35 98.0 74 18 140/95 95 01/07/17 11:38 98.4 86 16 139/61 96 I/O 01/07/17 01/07/17 01/07/17 01/08/17 01/08/17 01/08/17 07:00 15:00 23:00 07:00 15:00 23:00 Intake Total 600 ml 890 ml Output Total 320 ml Balance 600 ml 570 ml Intake Oral 480 ml IV Total 600 ml 410 ml Output Urine Total 320 ml # Voids 1 Result Diagram: 01/06/17 1010 01/08/17 0610 Imaging Last Impressions Myocardial Perfusion Scan Nuc Med 01/07/17 0600 Signed Impressions: Service Date/Time: Saturday, January 07, 2017 09:06 - CONCLUSION: Significant reduction in ejection fraction and significant ischemia in the anterior and lateral wolff. RISK CATEGORY: High (>3%% Annual Mortality Rate) William Doshi MD Chest X-Ray 01/06/17 1000 Signed Impressions: Service Date/Time: December 10:04 - CONCLUSION: Cardiomegaly without acute cardiopulmonary disease. Zeke James Jr., MD CT Angiography 01/06/17 0000 Signed Impressions: Service Date/Time: December 12:46 - CONCLUSION: 1. Probable chronic changes in the lungs with subpleural cysts in the apices and some pleural parenchymal interstitial changes dependently possibly representing early UIP/fibrosis. 2. Old granulomatous disease. 3. No pulmonary embolus or acute infiltrate. 4. 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 5. Dense atherosclerotic calcification of the coronary arteries. Multiple coronary artery bypass graft emanating from the ascending thoracic aorta. Arvin Dsouza MD Objective Remarks GENERAL: NAD SKIN: Warm and dry. HEAD: Normocephalic. EYES: No scleral icterus. No injection or drainage. NECK: Supple, trachea midline. No JVD or lymphadenopathy. CARDIOVASCULAR: Regular rate and rhythm without murmurs, gallops, or rubs. RESPIRATORY: Breath sounds equal bilaterally. No accessory muscle use. GASTROINTESTINAL: Abdomen soft, non-tender, nondistended. MUSCULOSKELETAL: No cyanosis, or edema. BACK: Nontender without obvious deformity. No CVA tenderness. A/P Problem List: (1) Exertional dyspnea ICD Code: R06.09 Status: Acute (2) ARF (acute renal failure) ICD Code: N17.9 Status: Acute (3) TAMI (obstructive sleep apnea) ICD Code: G47.33 Status: Acute (4) Benign hypertension ICD Code: I10 Status: Acute (5) Hyperlipidemia ICD Code: E78.5 Status: Acute (6) Chronic atrial fibrillation ICD Code: I48.2 Status: Acute (7) Atypical chest pain ICD Code: R07.89 Status: Acute Assessment and Plan 81-year-old man with Exertional dyspnea Atypical chest pain Chest x-ray without any cardio pulmonary disease CTA ruled out PE Cardiology consultation appreciated 2-D echo with EF 50%, DuoNeb when necessary ACS ruled out per protocol with serial cardiac enzyme and EKGs Positive nuclear stress test 01/07/17 therefore plan for [facility] on 01/10/17 Continue with ASA/BB/Statin/NTG/Lovenox 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
[2017-01-08] MEDS ORDERED: GABAPENTIN 100 MG CAP PO ONE (15:45)
[2017-01-09] VITALS (24 sets, daily range): BP systolic 114–139; BP diastolic 71–81; PULSE 52–77; RESP 18; TEMP 97.7–98.5; O2SAT 96–98
[2017-01-09] MEDS: SODIUM CHLOR 0.9% 1000 ML INJ 1,000 ML IV SCH ×4 (01:54→16:24)
[2017-01-09] MEDS: INSULIN ASPART SUPPLEMENTAL SCALE SQ SCH ×4 (07:00→20:42)
[2017-01-09] MEDS: GLIMEPIRIDE 1 MG TAB PO SCH (08:00)
[2017-01-09] MEDS: METOPROLOL SUCCINATE 50 MG EXTENDED RELEASE TAB PO SCH (08:51)
[2017-01-09] MEDS: ATORVASTATIN 10 MG TAB PO SCH (08:51)
[2017-01-09] MEDS: LISINOPRIL 20 MG TAB PO SCH (08:51)
[2017-01-09] MEDS: ASPIRIN 81 MG CHEW TAB PO SCH (08:51)
[2017-01-09] MEDS: GABAPENTIN 300 MG CAP PO SCH (08:51)
[2017-01-09] MEDS: SODIUM CHLORIDE 0.9% FLUSH 10 ML FLUSH IV FLUSH SCH ×2 (08:51→20:42)
[2017-01-09] MEDS: PANTOPRAZOLE SOD 20 MG DELAYED RELEASE TAB PO SCH (08:51)
[2017-01-09] MEDS: DULoxetine HCl DR 60 MG CAP PO SCH ×2 (08:52→20:42)
--- NOTE | 2017-01-09 09:36 | HHI.PR ---
Subjective Remarks Follow-up atypical chest pain/dyspnea 01/07/17-patient seen and examined, reports significant improvement of shortness of breath as well as chest pain. No acute event overnight currently nothing by mouth pending nuclear stress test. Case discussed with Dr. Fletcher 01/08/17-patient seen and examined,he had a positive stress test on 01/07; denies any chest pain or shortness of breath this AM 01/09/17-patient seen and examined, stable and denies any chest pain or shortness of breath. No acute event overnight Objective Vitals Vital Signs Date Time Temp Pulse Resp B/P Pulse Ox O2 Delivery O2 Flow Rate FiO2 01/09/17 06:05 66 01/09/17 05:41 74 01/09/17 04:06 58 01/09/17 03:15 97.7 57 18 114/80 97 01/09/17 03:00 74 01/09/17 02:00 62 01/09/17 01:33 72 01/09/17 00:25 56 01/08/17 23:20 98.3 77 16 129/74 93 01/08/17 23:20 57 01/08/17 22:00 64 01/08/17 21:00 66 01/08/17 20:00 68 01/08/17 19:51 64 01/08/17 19:20 97.7 66 18 141/72 96 01/08/17 18:00 70 01/08/17 17:00 66 01/08/17 16:00 66 01/08/17 15:14 72 01/08/17 15:14 98.9 60 18 128/69 95 01/08/17 14:10 57 01/08/17 13:21 66 01/08/17 12:01 61 01/08/17 11:49 59 01/08/17 11:49 98.7 77 18 142/79 98 01/08/17 10:08 70 01/08/17 09:48 77 I/O 01/08/17 01/08/17 01/08/17 01/09/17 01/09/17 01/09/17 07:00 15:00 23:00 07:00 15:00 23:00 Intake Total 890 ml 1596 ml 1363 ml Output Total 320 ml 800 ml 1500 ml Balance 570 ml 796 ml -137 ml Intake Oral 480 ml 875 ml 480 ml IV Total 410 ml 721 ml 883 ml Output Urine Total 320 ml 800 ml 1500 ml # Voids 1 # Bowel Movements 1 0 Result Diagram: 01/06/17 1010 01/08/17 0610 Objective Remarks GENERAL: NAD SKIN: Warm and dry. HEAD: Normocephalic. EYES: No scleral icterus. No injection or drainage. NECK: Supple, trachea midline. No JVD or lymphadenopathy. CARDIOVASCULAR: Regular rate and rhythm without murmurs, gallops, or rubs. RESPIRATORY: Breath sounds equal bilaterally. No accessory muscle use. GASTROINTESTINAL: Abdomen soft, non-tender, nondistended. MUSCULOSKELETAL: No cyanosis, or edema. BACK: Nontender without obvious deformity. No CVA tenderness. A/P Problem List: (1) Exertional dyspnea ICD Code: R06.09 Status: Acute (2) ARF (acute renal failure) ICD Code: N17.9 Status: Resolved (3) TAMI (obstructive sleep apnea) ICD Code: G47.33 Status: Chronic (4) Benign hypertension ICD Code: I10 Status: Chronic (5) Hyperlipidemia ICD Code: E78.5 Status: Chronic (6) Chronic atrial fibrillation ICD Code: I48.2 Status: Chronic (7) Atypical chest pain ICD Code: R07.89 Status: Resolved Assessment and Plan 81-year-old man with Exertional dyspnea Atypical chest pain Chest x-ray without any cardio pulmonary disease CTA ruled out PE Cardiology consultation appreciated 2-D echo with EF 50%, DuoNeb when necessary ACS ruled out per protocol with serial cardiac enzyme and EKGs Positive nuclear stress test 01/07/17 therefore plan for [facility] tomorrow 01/10/17 Continue with ASA/BB/Statin/NTG/Lovenox 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
[2017-01-09] MEDS: MAGNESIUM HYDROXIDE SUSP 30 ML CUP PO PRN (20:41)
[2017-01-09] MEDS: ZOLPIDEM TARTRATE 10 MG TAB PO PRN (20:42)
[2017-01-10] VITALS (26 sets, daily range): BP systolic 113–144; BP diastolic 50–72; PULSE 48–88; RESP 16–20; TEMP 97.6–97.8; O2SAT 96–99
[2017-01-10] MEDS: SODIUM CHLOR 0.9% 1000 ML INJ 1,000 ML IV SCH ×3 (05:52→18:37)
[2017-01-10] MEDS: INSULIN ASPART SUPPLEMENTAL SCALE SQ SCH ×4 (05:53→20:35)
[2017-01-10 06:00] LABS: BICARBONATE 25.9 MEQ/L (21.0-32.0); POTASSIUM 4.6 MEQ/L (3.5-5.1)
--- NOTE | 2017-01-10 07:59 | HHI.PR ---
Subjective Remarks Follow-up atypical chest pain/dyspnea 01/07/17-patient seen and examined, reports significant improvement of shortness of breath as well as chest pain. No acute event overnight currently nothing by mouth pending nuclear stress test. Case discussed with Dr. Fletcher 01/08/17-patient seen and examined,he had a positive stress test on 01/07; denies any chest pain or shortness of breath this AM 01/09/17-patient seen and examined, stable and denies any chest pain or shortness of breath. No acute event overnight 01/10/17-patient seen and examined, currently nothing by mouth pending left heart catheterization today. Denies any chest pain or shortness of breath. Reports no acute event overnight. Objective Vitals Vital Signs Date Time Temp Pulse Resp B/P Pulse Ox O2 Delivery O2 Flow Rate FiO2 01/10/17 07:37 97.6 88 18 127/68 96 01/10/17 07:00 48 01/10/17 06:00 52 01/10/17 05:00 60 01/10/17 04:00 64 01/10/17 03:00 51 01/10/17 03:00 97.6 82 18 127/69 97 01/10/17 02:00 69 01/10/17 01:00 59 01/10/17 00:00 70 01/09/17 23:00 59 01/09/17 23:00 97.9 67 18 139/74 96 01/09/17 22:00 70 01/09/17 21:00 60 01/09/17 20:00 62 01/09/17 19:00 63 01/09/17 19:00 98.5 65 18 138/81 96 01/09/17 18:12 63 01/09/17 17:07 64 01/09/17 16:25 63 01/09/17 15:10 98.0 77 18 127/71 98 01/09/17 15:10 56 01/09/17 14:21 60 01/09/17 13:03 73 01/09/17 12:10 65 01/09/17 11:13 98.2 54 18 127/71 97 01/09/17 11:13 66 01/09/17 10:03 68 01/09/17 09:44 21 01/09/17 09:39 63 01/09/17 08:30 67 01/09/17 08:30 97.7 52 18 114/80 98 I/O 01/09/17 01/09/17 01/09/17 01/10/17 01/10/17 01/10/17 07:00 15:00 23:00 07:00 15:00 23:00 Intake Total 1363 ml 1300 ml 480 ml Output Total 1500 ml 950 ml 1700 ml Balance -137 ml 350 ml -1220 ml Intake Oral 480 ml 600 ml 480 ml IV Total 883 ml 700 ml Output Urine Total 1500 ml 950 ml 1700 ml # Bowel Movements 0 0 1 Result Diagram: 01/06/17 1010 01/10/17 0506 Imaging Last Impressions Myocardial Perfusion Scan Nuc Med 01/07/17 0600 Signed Impressions: Service Date/Time: Saturday, January 07, 2017 09:06 - CONCLUSION: Significant reduction in ejection fraction and significant ischemia in the anterior and lateral wolff. RISK CATEGORY: High (>3%% Annual Mortality Rate) William Doshi MD Chest X-Ray 01/06/17 1000 Signed Impressions: Service Date/Time: December 10:04 - CONCLUSION: Cardiomegaly without acute cardiopulmonary disease. Zeke James Jr., MD CT Angiography 01/06/17 0000 Signed Impressions: Service Date/Time: December 12:46 - CONCLUSION: 1. Probable chronic changes in the lungs with subpleural cysts in the apices and some pleural parenchymal interstitial changes dependently possibly representing early UIP/fibrosis. 2. Old granulomatous disease. 3. No pulmonary embolus or acute infiltrate. 4. 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 5. Dense atherosclerotic calcification of the coronary arteries. Multiple coronary artery bypass graft emanating from the ascending thoracic aorta. Arvin Dsouza MD Objective Remarks GENERAL: NAD SKIN: Warm and dry. HEAD: Normocephalic. EYES: No scleral icterus. No injection or drainage. NECK: Supple, trachea midline. No JVD or lymphadenopathy. CARDIOVASCULAR: Regular rate and rhythm without murmurs, gallops, or rubs. RESPIRATORY: Breath sounds equal bilaterally. No accessory muscle use. GASTROINTESTINAL: Abdomen soft, non-tender, nondistended. MUSCULOSKELETAL: No cyanosis, or edema. BACK: Nontender without obvious deformity. No CVA tenderness. A/P Problem List: (1) Exertional dyspnea ICD Code: R06.09 Status: Acute (2) ARF (acute renal failure) ICD Code: N17.9 Status: Resolved (3) TAMI (obstructive sleep apnea) ICD Code: G47.33 Status: Chronic (4) Benign hypertension ICD Code: I10 Status: Chronic (5) Hyperlipidemia ICD Code: E78.5 Status: Chronic (6) Chronic atrial fibrillation ICD Code: I48.2 Status: Chronic (7) Atypical chest pain ICD Code: R07.89 Status: Resolved Assessment and Plan 81-year-old man with Exertional dyspnea Atypical chest pain CTA ruled out PE Cardiology consultation appreciated 2-D echo with EF 50%, DuoNeb when necessary ACS ruled out per protocol with serial cardiac enzyme and EKGs Positive nuclear stress test 01/07/17 therefore plan for [facility] today 01/10/17 Continue with ASA/BB/Statin/NTG Coronary artery disease Patient with known occluded ungrafted RCA as well as severely diseased SV to diagonal which was treated medically years ago by Dr. Berrios. 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-finding on CT angiography Vascular surgery consultation appreciated and continue observation Acute renal failure-resolved Prerenal secondary to dehydration Gentle IV fluid hydration, monitor BUN and creatinine and avoid all nephrotoxic drugs Chronic atrial fibrillation Not on oral anticoagulation as patient still undecided, states he will give it a thought Continue with daily aspirin Hemoconcentration Secondary to dehydration Monitor H&H Obstructive sleep apnea CPAP/BiPAP at night when necessary Hypertension Continue BB,Norvasc, lisinopril Hyperlipidemia Continue statin DVT prophylaxis: Bilateral SCDs Discharge Planning Discharge home pending left heart catheterization and clearance from cardiology Warren Campos MD Jan 10, 2017 07:59
[2017-01-10] MEDS: GLIMEPIRIDE 1 MG TAB PO SCH (08:00)
[2017-01-10] MEDS: SODIUM CHLORIDE 0.9% FLUSH 10 ML FLUSH IV FLUSH SCH ×2 (08:48→20:31)
[2017-01-10] MEDS: DULoxetine HCl DR 60 MG CAP PO SCH ×2 (08:49→20:30)
[2017-01-10] MEDS: ASPIRIN 81 MG CHEW TAB PO SCH (08:49)
[2017-01-10] MEDS: PANTOPRAZOLE SOD 20 MG DELAYED RELEASE TAB PO SCH (08:50)
[2017-01-10] MEDS: METOPROLOL SUCCINATE 50 MG EXTENDED RELEASE TAB PO SCH (08:50)
[2017-01-10] MEDS: GABAPENTIN 300 MG CAP PO SCH (08:50)
[2017-01-10] MEDS: LISINOPRIL 20 MG TAB PO SCH (08:50)
[2017-01-10] MEDS: ATORVASTATIN 10 MG TAB PO SCH (08:50)
[2017-01-10] MEDS ORDERED: IOHEXOL 350 MG/ML 100 ML BTL (for Cath Lab) OTHER ONE (15:38)
[2017-01-10] MEDS ORDERED: HEPARIN-NS/PF INJ 500 ML ONE (15:41)
[2017-01-10] MEDS ORDERED: MIDAZOLAM HCL 2 MG/2 ML VIAL ONE (15:41)
[2017-01-10] MEDS ORDERED: TIROFIBAN BOLUS INJ 100 ML IV ONE (16:06)
[2017-01-10] MEDS ORDERED: NITROGLYCERIN INJ 5 ML ONE (16:37)
[2017-01-10] MEDS ORDERED: CLOPIDOGREL 300 MG TAB ONE (16:38)
[2017-01-10] MEDS ORDERED: TEMAZEPAM 15 MG CAP PO PRN (16:45)
[2017-01-10] MEDS ORDERED: SODIUM CHLORIDE 0.9% FLUSH 5 ML FLUSH IVF PRN (16:45)
--- NOTE | 2017-01-10 16:50 | CATHPROC ---
[facility] HIS Report Study Information Study Number Admission Scheduled Start Study Start [id number] Jan 07 2017 1:39PM 01/10/2017 Jan 10 2017 3:10PM [place] Service Cardiac Catheterization Admit Source Facility Department Other [facility] Physician and Clinical Staff Initial Sathish Humphries Floor Renovator Joanna Bennett,EMMANUEL Floor Renovator Janelle Coleman,EMMANUEL Other cathlab, cathlab Recorder Dannielle Ye,SECTION LABORER TECH2 Scrub Chucho Hollins RCIS(BS) Procedures Performed Procedure Location (Site) Vessel Name Coronary Angiograms LCA Left Coronary Coronary Angiograms RCA Right Coronary Coronary Angiograms DAMON-LAD Left Coronary Coronary Angiograms SVG-OM CIRC Coronary Angiograms SVG-RCA Right Coronary Coronary Angiograms Gft. Stump 1 SVG Graft Drug Eluting Inflatio SVG-OM CIRC L Heart Cath PTCA SVG-OM CIRC Wire insertion Fem Art (right) Femoral Art Equipment Time Curriculum And Assessment Director Description Size Mfg Part Number Used/Scraped [id number] 16:08 [employer]YNN [employer] WIRE, ASAHI PROWATER 180CM 180CM Used *[id number] TRANSDUCER, TRUWAVE [id number] 15:41 CHI Sense Platform * Used W/STOCKCOCK *[id number] BALLOON, 3.5 8MM [facility] [id number] 16:32 [employer] SCIENTIFIC 3.5 8MM Used APEX MR *[id number] 16:09 [employer]OSTON SCI[employer]IFIC WIRE, FILTERWIRE EZ 190CM 190CM Used *[id number] 16:19 [employer]OST[employer] SCI[employer]IFIC WIRE, FILTERWIRE EZ 190CM 190CM Used *[id number] 534-676T *[id number] 534-660T *[id number] 534-620T *[id number] *[id number] 534-672T *[id number] 15:41 MEDLINE INDUSTRIES PACK, CCL CUSTOM * Used *[id number] 15:41 MEDLINE PACER PEN, SKIN DUAL W/ RULER * Used *[id number] 16:16 MEDTRONIC BALLOON, 3.0 X 15MM EUPHORA 15MM Used *[id number] STENT, 3.5 15 RESOLUTE [id number] 16:25 MEDTRONIC 3.5 15 Used INTEGRITY RX *[id number] 16:23 The Fan Machine 30 KAREN INDEFLATOR Used *[id number] 15:41 EyeQuant MEDICAL SHEATH, FR6.5 PRELUDE 11CM FR 6.5 038ACT Used *[id number] 15:41 EyeQuant MEDICAL WIRE, 3MMJ .035 180CM 180CM Used *[id number] 15:41 NAMIC MANIFOLD, 4 PORT * Used *[id number] 15:41 NYCOMED OMNIPAQUE, 350 MG, 150ML 150ML [id number] Used [id number] 15:41 [facility],WARM AIR CCL * Used *[id number] Equipment Model, Serial, Lot Number and Expiration Data Description Model Number Serial Number Lot Number Expiration Date STENT, 3.5 15 RESOLUTE [id number] 08-29-2018 INTEGRITY RX WIRE, FILTERWIRE EZ 190CM [id number] 10-18-2018 History: Current Medications Medication Dosage/Unit Route Frequency Last Date/Time Taken Statins (any) ASA LISINOPRIL History: Allergies Allergy Reaction No Known Allergies History: Risk Factors Family History of Hypertension Dyslipidemia Previous OK Previous Heart Failure Premature CAD Yes Yes Yes Yes Yes Prior Valve Prior PCI Prior CABG Prior CABGDate Surgery No No Yes 06/13/1992 Cerebrovascular 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 Diabetes Diabetes Therapy Disease Disease Disease No Yes No Yes Yes Oral History: Symptoms/Diagnosis Selection Items SOB History: CV Disease Selection Items Known CAD OK History: Stress Tests Stress or Imaging Studies Performed Yes Standard Exercise Stress Test No Stress Echo No Stress Test SPECT No Stress Test CMR Stress Test CMR Result Stress Test CMR Ischemia Risk/Extent Yes Positive High Cardiac CTA Coronary Calcium Score No No History: Arrhythmias Selection Items Atrial fibrillation History: Other Disease Selection Items CAD CHF HTN History: Other Current Smoker Method Quit Packs a Day Years Used Pack Years No Cigarettes 40 Years Ago 1 35 35 Labs Hgb (g/dl) Hct (%) WBC (l/cumm) Platelets (thousands) 11.60-17.00 35.00-51.00 4.00-11.00 150.00-450.00 17.3 50.1 8.3 202 Glucose (mg/dl) BUN (mg/dl) Creatinine (mg/dl) BUN:Creatinine (1:x) 74.00-106.00 7.00-18.00 0.50-1.30 10.00-20.00 90 21 1.1 19.1 Na (meq/l) K (meq/l) 136.00-145.00 3.50-5.10 137 4.6 CPK-MB (ng/ML) 0.50-3.60 2.5 Medication Medication Total Dose (Bolus/Oral) Medication Total Dosage/Unit 1% XYLOCAINE 20 mL AGGRASTAT BOLUS 56.8 mL HEPARIN 6800 units NTG (IC) 100 mcg PLAVIX 600 mg VERSED 2 mg Medications (Bolus/Oral) Medication Time Given Dosage/Unit Administered By Reason 1% XYLOCAINE 01/10/2017 3:55:04 PM 20 mL Sathish Fletchre 20 mL 1% XYLOCAINE given in lab by Sathish Fletcher in Right Groin via Subcutaneous. Ordered by Jamir Fletcher enn. VERSED 01/10/2017 3:55:20 PM 2 mg Joanna Bennett 2 mg VERSED given in lab by Joanna Bennett RN in Left Wrist via Peripheral IV. Ordered by Jamir Fletcher. HEPARIN 01/10/2017 4:07:38 PM 6800 units Joanna Bennett 6800 units HEPARIN given in lab by Joanna Bennett RN in Left Wrist via Peripheral IV. Ordered by Sathish Egan. NTG (IC) 01/10/2017 4:13:27 PM 50 mcg Chucho Hollins 50 mcg NTG (IC) given in lab by Chucho Hollins RCIS(BS) in Right Groin via Intra-coronary. Ordered by Sathish Egan. AGGRASTAT BOLUS 01/10/2017 4:14:30 PM 56.8 mL Joanna Bennett 56.8 mL AGGRASTAT BOLUS given in lab by Joanna Bennett RN in Left Wrist via Peripheral IV. Ordered by Sathish Fletcher. NTG (IC) 01/10/2017 4:30:02 PM 50 mcg Chucho Hollins 50 mcg NTG (IC) given in lab by Chucho Hollins RCIS(BS) in Right Groin via Intra-coronary. Ordered by Sathish Egan. PLAVIX 01/10/2017 4:50:26 PM 600 mg Joanna Bennett 600 mg PLAVIX given in lab by Joanna Bennett RN via Oral. Ordered by Sathish Fletcher. Medication (Drip) Medication Time Given Dosage/Unit Concentration/Unit Diluent (ml) Solution AGGRASTAT DRIP 01/10/2017 4:18:15 PM 0.15 mcg/kg/min 12.5 mg 250 NaCl .9 0.15 mcg/kg/min AGGRASTAT DRIP given in lab by Joanna Bennett, RN in Left Wrist via Peripheral IV. P ump/Drip Flow = 20.43 ml/hr using NaCl .9 with a concentration of 12.5 mg in 250 ml. Ordered by Sathish Fletcher. IV Solutions 01/10/2017 3:38:55 PM 0 mL (IV) 500 NaCl .9 IV Solutions given in lab by Joanna Bennett, EMMANUEL in Left Wrist via Peripheral IV. Pump/Drip Flow = 20 ml/hr using NaCl .9. Ordered by Sathish Fletcher. Initial Case Assessment Cardiovascular HR NIBP 60 135/78 Edema Present Skin color Skin None Normal Warm Dry Circulatory - Right Pulses Dorsalis Pedis Femoral 2 1 Scale (0,1,2,3,4,d) Circulatory - Left Pulses Dorsalis Pedis Femoral 2 1 Scale (0,1,2,3,4,d) Neurological State Oriented to time-place- Alert Moves all extremities person Respiration - General Respiration Rate SpO2 (%) (B/min) 16 98 Final Case Assessment Cardiovascular HR NIBP 67 133/80 Edema Present Skin color Skin None Normal Warm Dry Circulatory - Right Pulses Dorsalis Pedis Femoral 2 1 Scale (0,1,2,3,4,d) Circulatory - Left Pulses Dorsalis Pedis Femoral 2 1 Scale (0,1,2,3,4,d) Neurological State Oriented to time-place- Alert Moves all extremities person Respiration - General Respiration Rate SpO2 (%) (B/min) 15 95 Chronological Log Time Study Chronological Log 15:38:39 Patient arrived via Bed. 15:38:40 Patient Name, D.O.B, / Armband Verified By R.N. 15:38:41 Consent signed by the physician and the patient and verified by the [facility] staff. 15:38:43 Pre-op and post- op instructions given; patient acknowledges understanding of instructions. 15:38:46 Patient has been NPO for More than 6Hrs. 15:38:47 Skin Breakdown- 15:38:49 Patient Warmer Placed on the Table. 15:38:54 A # 18 IV was noted in the Wrist (left). Grade = 0 IV Solutions given in lab by Joanna Bennett, RN in Left Wrist via Peripheral IV. Pump/Drip Keron w = 20 ml/hr using NaCl 15:38:55 .9. Ordered by Sathish Fletcher. 15:38:57 History and physical on the chart or being dictated. Vitals capture started with the following parameters, Patient=Adult, Interval=5 min, Initial Pr mvacdb=619 mmHg, 15:40:20 Deflation Rate=5 mmHg, Cuff placed on Right Arm 15:41:02 HR=60 bpm, ZTHB=356/78 mmhg, SpO2=98.0 %, Resp=16 B/min, Pain=0, Aj=10, Brennan=2 Assessment: Initial Case, HR=60 BPM, GYOF=962/78 mmhg, Edema=None, Color=Normal, Skin = Warm, D ry Right Pulses: Suraj Ped=2, Femoral=1 15:43:00 Left Pulses: Suraj Ped=2, Femoral=1 Neurological: State=Alert, Ox3, ARAUJO Respiration: Resp=16 B/min, SpO2=98 % 15:43:09 Reference ECG taken 15:45:55 HR=57 bpm, EPWN=969/72 mmhg, SpO2=98.0 %, Resp=17 B/min, Pain=0, Aj=10, Brennan=2 15:48:52 Left Upper Chest Prepped Times Two. 15:50:22 Pressure channel 1 zeroed. 15:50:56 HR=65 bpm, BVKQ=161/80 mmhg, SpO2=97.0 %, Resp=13 B/min, Pain=0, Aj=10, Brennan=2 Time Out. Correct patient, correct procedure,correct physician, power injector not loaded with contrast with surgical 15:54:21 team present. Time Out Concurred by MD, individual staff in procedure 15:54:46 Case Start 15:55:04 20 mL 1% XYLOCAINE given in lab by Sathish Fletcher in Right Groin via Subcutaneous. Ordered by Sathish Fletcher. 15:55:20 2 mg VERSED given in lab by Joanna Bennett, RN in Left Wrist via Peripheral IV. Ordered by Sathish Fletcher. 15:55:57 HR=52 bpm, WHQY=089/66 mmhg, SpO2=98.0 %, Resp=17 B/min, Pain=0, Aj=10, Brennan=2 15:56:03 Access site was Right Femoral Artery. 15:56:11 A SHEATH, FR6.5 PRELUDE 11CM FR 6.5 was advanced into the Fem Art (right) using the Modkirk raymundo Seldinger technique. 15:57:43 The LCA was injected and visualized at various angles. OMNIPAQUE, 350 MG, 150ML 150ML used . After removing the current catheter a 3DRC INFINITI CATHETER FR 6 was advanced over a WIRE, 3MM J .035 180CM 15:58:27 180CM. 15:59:23 The RCA was injected and visualized at various angles. OMNIPAQUE, 350 MG, 150ML 150ML used . Recorded Pressure: Ao, HR=63, Condition=Condition 1 15:59:30 (Aorta) Ao 107/50/72 15:59:58 The SVG-RCA was injected and visualized at various angles. OMNIPAQUE, 350 MG, 150ML 150ML u sed. 16:00:19 The Gft. Stump 1 was injected and visualized at various angles. OMNIPAQUE, 350 MG, 150ML 15 0ML used. 16:00:45 After removing the current catheter a catheter was advanced over a WIRE, 3MMJ .035 180CM 18 0CM. 16:00:58 HR=63 bpm, IPRZ=649/71 mmhg, SpO2=95.0 %, Resp=14 B/min, Pain=0, Aj=10, Brennan=2 16:02:00 The DAMON-LAD was injected and visualized at various angles. OMNIPAQUE, 350 MG, 150ML 150ML used. After removing the current catheter a LCB INFINITI CATHETER FR 6 was advanced over a WIRE, 3MMJ .035 180CM 16:02:56 180CM. 16:04:50 The SVG-OM was injected and visualized at various angles. OMNIPAQUE, 350 MG, 150ML 150ML us ed. 16:05:57 HR=67 bpm, UPLM=783/79 mmhg, SpO2=96.0 %, Resp=14 B/min, Pain=0, Aj=10, Brennan=2 16:07:38 6800 units HEPARIN given in lab by Joanna Bennett RN in Left Wrist via Peripheral IV. Ord ered by Sathish Fletcher. After removing the current catheter a LCB GUIDE CATHETER FR 6 was advanced over a WIRE, 3MMJ .0 35 180CM 16:09:08 180CM. 16:10:56 HR=76 bpm, MLKF=743/83 mmhg, SpO2=95.0 %, Resp=15 B/min, Pain=0, Aj=10, Brennan=2 16:12:20 A WIRE, FILTERWIRE EZ 190CM 190CM was inserted via Fem Art (right). 16:12:30 Filter wire sheath inserted 16:13:27 50 mcg NTG (IC) given in lab by Chucho Hollins RCIS(BS) in Right Groin via Intra-coronary. Ord ered by Sathish Fletcher. 56.8 mL AGGRASTAT BOLUS given in lab by Joanna Bennett RN in Left Wrist via Peripheral IV. Or dered by Chance 16:14:30 Sathish. 16:14:56 Activated Clotting Time Drawn 16:15:59 HR=67 bpm, JQRQ=647/75 mmhg, SpO2=95.0 %, Resp=14 B/min, Pain=0, Aj=10, Brennan=2 0.15 mcg/kg/min AGGRASTAT DRIP given in lab by Joanna Bennett RN in Left Wrist via Peripheral IV. Pump/Drip Flow 16:18:15 = 20.43 ml/hr using NaCl .9 with a concentration of 12.5 mg in 250 ml. Ordered by Sathish Fletcher. 16:19:21 Wire removed 16:19:22 A WIRE, FILTERWIRE EZ 190CM 190CM was inserted via Fem Art (right). 16:19:42 Filter wire sheath inserted 16:20:58 HR=70 bpm, MGER=878/77 mmhg, SpO2=95.0 %, Resp=13 B/min, Pain=0, Aj=10, Brennan=2 16:21:10 ACT (Normal Range 90-180) = 308 16:22:21 A BALLOON, 3.0 X 15MM EUPHORA 15MM was inserted over WIRE, FILTERWIRE EZ 190CM 190CM via e SVG-OM. A BALLOON, 3.0 X 15MM EUPHORA 15MM over a WIRE, FILTERWIRE EZ 190CM 190CM in the SVG-OM was inf lated 16:23:09 using a 30 KAREN INDEFLATOR at 12 karen for 35 sec. 16:24:04 Balloon Removed. A STENT, 3.5 15 RESOLUTE INTEGRITY RX 3.5 15 was advanced through a LCB GUIDE CATHETER FR 6 ove r a WIRE, 16:25:43 FILTERWIRE EZ 190CM 190CM. 16:25:57 HR=62 bpm, BSPJ=562/81 mmhg, SpO2=95.0 %, Resp=17 B/min, Pain=0, Aj=10, Brennan=2 A STENT, 3.5 15 RESOLUTE INTEGRITY RX 3.5 15 was deployed using a 30 KAREN INDEFLATOR at 9 atmosp heres for 30 16:28:05 seconds in the SVG-OM. 16:29:17 Delivery device removed 16:30:02 50 mcg NTG (IC) given in lab by Chucho Hollins RCIS(BS) in Right Groin via Intra-coronary. Ord ered by Sathish Fletcher. 16:31:41 HR=66 bpm, FVBK=093/71 mmhg, SpO2=97.0 %, Resp=14 B/min, Pain=0, Aj=10, Brennan=2 A BALLOON, 3.5 8MM NC QUANTUM APEX MR 3.5 8MM was inserted over WIRE, FILTERWIRE EZ 190CM 190CM via the 16:32:23 SVG-OM. A BALLOON, 3.5 8MM NC QUANTUM APEX MR 3.5 8MM over a WIRE, FILTERWIRE EZ 190CM 190CM in the SVG -OM 16:33:03 was inflated using a 30 KAREN INDEFLATOR at 13 karen for 30 sec. A BALLOON, 3.5 8MM NC QUANTUM APEX MR 3.5 8MM over a WIRE, FILTERWIRE EZ 190CM 190CM in the SVG -OM 16:33:49 was inflated using a 30 KAREN INDEFLATOR at 14 karen for 30 sec. A BALLOON, 3.5 8MM NC QUANTUM APEX MR 3.5 8MM over a WIRE, FILTERWIRE EZ 190CM 190CM in the SVG -OM 16:34:35 was inflated using a 30 KAREN INDEFLATOR at 14 karen for 30 sec. 16:35:33 Balloon Removed. 16:36:04 HR=63 bpm, FREE=743/67 mmhg, SpO2=92 %, Resp=13 B/min, Pain=0, Aj=10, Brennan=2 16:37:30 Filter wire sheath removed. PCI QA completed: Pre-Moses - 3, Post Moses - 3, Type - C, Length - 15 mm, Morphology - Atypical, Indications - Lesion > 16:38:24 50 non-stem, Pre-Stenosis - 75% and Post Stenosis - 0%. 16:38:26 PCI QA obtained from Acetylene Torch Operator 16:38:36 Case End 16:39:29 Catheter(s) removed without difficulty 16:39:31 In the Fem Art (right) the SHEATH, FR6.5 PRELUDE 11CM FR 6.[address] by Chucho Hollins RCIS(BS). 16:39:41 Sterile dressing applied to site 16:39:43 No case complications noted. 16:39:46 Bedside Report will be given. 16:39:49 Implantable Device card placed in patient's chart. 16:39:50 Contrast Scanned 16:39:56 A Left Heart Cath was performed. 16:41:40 HR=67 bpm, YGPT=294/80 mmhg, SpO2=95 %, Resp=15 B/min, Pain=0, Aj=10, Brennan=2 16:45:30 Vitals capture stopped. Assessment: Final Case, HR=67 BPM, HEPJ=036/80 mmhg, Edema=None, Color=Normal, Skin = Warm, Dry Right Pulses: Suraj Ped=2, Femoral=1 16:45:34 Left Pulses: Suraj Ped=2, Femoral=1 Neurological: State=Alert, Ox3, ARAUJO Respiration: Resp=15 B/min, SpO2=95 % 16:48:57 [facility] 16[facility] 600 mg PLAVIX given in lab by Joanna Bennett, EMMANUEL via Oral. Ordered by Sathish Fletcher. End Study - Contrast Media Used In Study Contrast Total Opened (mL) Total Used (mL) Total Wasted (mL) Omnipaque 100 100 0 End Study - Maximum Contrast Load Max Contrast Load (mL) 515.9 End Study - Radiation Exposure Fluoro Time (minutes) 13.5 End Study - Patient Disposition Complications Transferred To Interventional Outcome No Telemetry Bed successful
[2017-01-10] MEDS ORDERED: HEPARIN SODIUM - IV 10,000 UNITS/10 ML VIAL ONE (17:17)
[2017-01-10] MEDS: TIROFIBAN INFUSION INJ 250 ML IV SCH (18:37)
[2017-01-10] MEDS ORDERED: ATROPINE SULFATE 1 MG/10 ML SYRINGE ONE (19:14)
[2017-01-10] MEDS: ZOLPIDEM TARTRATE 10 MG TAB PO PRN (20:30)
--- NOTE | 2017-01-10 22:38 | MA ---
cc: SATHISH RAND M.D. DATE 01/10/2017 PROCEDURE Left heart catheterization, selective coronary and graft angiography, angioplasty and stent of the ostium of the vein graft to the obtuse marginal. PROCEDURE NOTE The patient was brought to the cardiac catheterization laboratory in a fasting state after having signed informed consent. The right groin was prepped and draped as per policy and anesthetized with 1% lidocaine. Arterial access was obtained via the right femoral artery and a 6-Maltese sheath placed. Coronary arteriography was performed using 6-Maltese Bright left 4.0 and right progressive catheters. The bypass grafts were engaged with the progressive right catheter. Percutaneous graft intervention was done as described below. Left ventriculography was not done. The aortic valve was crossed briefly with the progressive right catheter demonstrating no gradient. There were no apparent immediate complications. The patient tolerated the procedure well. HEMODYNAMIC RESULTS Left ventricle 136 with an end-diastolic pressure of 15. Aorta 128/76 with a mean of 98. CORONARY ARTERIOGRAPHY The left main is totally occluded near its origin. The right coronary artery is totally occluded very proximally. There are fair homo collaterals. There are also scant tdhw-yd-mfksz collaterals. GRAFT ANGIOGRAPHY The vein graft to the diagonal is totally occluded very proximally. The vein graft to the obtuse marginal demonstrates a 75% lesion near its ostium. A secondary branch of the quechan obtuse marginal has severe diffuse disease at its origin. The left internal mammary artery to the LAD is widely patent. There is also good retrograde flow into a medium-sized diagonal. There is a moderate-sized unligated branch off the proximal left internal mammary artery. LEFT VENTRICULOGRAPHY Not done. PERCUTANEOUS GRAFT INTERVENTION Adequate heparin was given during the procedure to achieve an ACT of 308 seconds. Aggrastat was given as per protocol. Using a 6-Maltese LCB guiding catheter the ostium of the vein graft to the obtuse marginal was re-engaged. An Easyfilter was used to cross the ostial disease and the tip positioned in the mid graft. The filter basket was deployed. Predilation of the lesion was done using a 3.0 mm Euphora balloon catheter. Stenting was done using a 3.5 x 15 mm Resolute stent which was postdilated using a 3.5 mm noncompliant Emerge balloon catheter which was inflated to 14-15 atmospheres along the length of the stent. Final angiography shows overall good results with reduction of the initial disease to roughly 0% residual with no definite evidence for dissection or distal embolization. The patient tolerated the procedure well. He was thoroughly sedated throughout the case. CONCLUSION 1. Severe quechan three-vessel disease, severe left main disease. 2. Patent left internal mammary artery to the LAD, totally occluded vein graft to the diagonal, severely diseased vein graft to the obtuse marginal now status post angioplasty and stent of this graft. 3. Fair right coronary artery homo collaterals and overall scant to fair ekkw-mo-gbszz collaterals. Sathish Rand MD GHYasmany/KK /5:00 PM /10:26 PM MTDD
[2017-01-11] VITALS (11 sets, daily range): BP systolic 101–113; BP diastolic 69–82; PULSE 54–79; RESP 17–18; TEMP 97.6; O2SAT 96–97
[2017-01-11] MEDS: SODIUM CHLOR 0.9% 1000 ML INJ 1,000 ML IV SCH (01:27)
[2017-01-11] MEDS: TIROFIBAN INFUSION INJ 250 ML IV SCH (04:58)
[2017-01-11] MEDS: INSULIN ASPART SUPPLEMENTAL SCALE SQ SCH (06:09)
[2017-01-11 06:15] LABS: AUTOMATED NEUTROPHIL # 4.4 TH/MM3 (1.8-7.7); BASOPHIL % 0.3 % (0.0-2.0); EOSINOPHIL # 0.2 TH/MM3 (0-0.4); HEMATOCRIT 45.9 % (39.0-51.0); HEMO FLAGS DIFF FINAL; LYMPH % 25.4 % (9.0-44.0); LYMPHOCYTE # 1.8 TH/MM3 (1.0-4.8); MEAN CELL VOLUME 98.3 FL (80.0-100.0); MEAN CORPUSCULAR HEMOGLOBIN 33.3 PG (27.0-34.0); MEAN CORPUSCULAR HGB CONC 33.9 % (32.0-36.0); MONO % 10.5 % (0.0-8.0); NEUT % 60.8 % (16.0-70.0); PLATELET COUNT 194 TH/MM3 (150-450); RED BLOOD COUNT 4.67 MIL/MM3 (4.50-5.90); RED CELL DISTRIBUTION WIDTH 13.1 % (11.6-17.2); WHITE BLOOD COUNT 7.3 TH/MM3 (4.0-11.0)
[2017-01-11 06:19] LABS: APTT (PATIENT) 28.3 SEC (24.3-30.1); PROTHROMBIN TIME - PATIENT 10.9 SEC (9.8-11.6)
[2017-01-11 06:46] LABS: BICARBONATE 24.6 MEQ/L (21.0-32.0); POTASSIUM 4.2 MEQ/L (3.5-5.1)
[2017-01-11 06:49] LABS: HDL CHOLESTEROL 36.3 MG/DL (40.0-60.0)
[2017-01-11] MEDS: GLIMEPIRIDE 1 MG TAB PO SCH (08:31)
[2017-01-11] MEDS: GABAPENTIN 300 MG CAP PO SCH (08:32)
[2017-01-11] MEDS: METOPROLOL SUCCINATE 50 MG EXTENDED RELEASE TAB PO SCH (08:33)
[2017-01-11] MEDS: DULoxetine HCl DR 60 MG CAP PO SCH (08:33)
[2017-01-11] MEDS: LISINOPRIL 20 MG TAB PO SCH (08:33)
[2017-01-11] MEDS: PANTOPRAZOLE SOD 20 MG DELAYED RELEASE TAB PO SCH (08:33)
[2017-01-11] MEDS: ATORVASTATIN 10 MG TAB PO SCH (08:34)
[2017-01-11] MEDS: SODIUM CHLORIDE 0.9% FLUSH 10 ML FLUSH IV FLUSH SCH (08:35)
--- NOTE | 2017-01-11 08:47 | PD.CARD.PN ---
Subjective Subjective Remarks Denies CP. Dyspnea much better. No dizziness, groin pain, palpitations. Objective Medications Item Value Date Time Aspirin 81 mg 01/11/17 0900 (Aspirin Chew) DAILY/PO 01/11/17 0831 Clopidogrel 75 mg 01/11/17 0900 Bisulfate DAILY/PO 01/11/17 0831 (Plavix) Tirofiban/Sodium 250 ml @ 20.43 mls/hr 01/10/17 1643 Chloride [id number] Metoprolol 50 mg 01/07/17 0900 Succinate DAILY/PO 01/11/17 0833 (Toprol Xl) Lisinopril 40 mg 01/07/17 0900 (Prinivil) DAILY/PO 01/11/17 0833 Amlodipine 10 mg 01/07/17 0900 Besylate DAILY/PO 01/11/17 0832 (Norvasc) Atorvastatin 10 mg 01/07/17 0900 Calcium DAILY/PO 01/11/17 0834 (Lipitor) Vital Signs / I&O Vital Signs Date Time Temp Pulse Resp B/P Pulse Ox O2 Delivery O2 Flow Rate FiO2 01/11/17 08:00 79 01/11/17 07:03 97.6 79 18 113/82 96 01/11/17 07:00 60 01/11/17 06:08 70 01/11/17 05:16 55 01/11/17 04:22 61 01/11/17 03:30 56 01/11/17 03:20 97.6 61 17 101/69 97 01/11/17 02:00 54 01/11/17 01:26 63 01/11/17 00:09 71 01/10/17 23:55 97.7 70 18 144/70 98 01/10/17 23:55 56 01/10/17 22:00 64 01/10/17 21:00 59 01/10/17 20:15 70 01/10/17 19:20 62 01/10/17 19:20 97.6 63 16 144/69 99 01/10/17 18:00 60 01/10/17 17:00 56 01/10/17 16:00 52 01/10/17 15:00 97.8 52 20 126/72 98 01/10/17 15:00 56 01/10/17 14:00 60 01/10/17 13:00 56 01/10/17 12:00 52 01/10/17 11:26 97.7 63 20 113/50 97 01/10/17 11:00 54 01/10/17 10:00 52 01/10/17 09:00 70 I/O 01/10/17 01/10/17 01/10/17 01/11/17 01/11/17 01/11/17 07:00 15:00 23:00 07:00 15:00 23:00 Intake Total 480 ml 416 ml 741 ml Output Total 1700 ml 1000 ml Balance -1220 ml -584 ml 741 ml Intake Oral 480 ml 200 ml 480 ml IV Total 216 ml 261 ml Output Urine Total 1700 ml 1000 ml # Voids 1 # Bowel Movements 1 1 Physical Exam GENERAL: Well developed, well nourished. No acute distress. HEENT: Jugular venous pressure is normal. CHEST: Lungs clear to auscultation bilaterally. Unlabored respiratory effort. CARDIAC: Irregular rate and rhythm without S3, S4, or murmur. ABDOMEN: Soft, nontender, no hepatosplenomegaly. Bowel sounds present. EXTREMITIES: No clubbing, cyanosis, or edema. Laboratory Laboratory Tests Test 01/11/17 05:30 White Blood Count 7.3 TH/MM3 Red Blood Count 4.67 MIL/MM3 Hemoglobin 15.6 GM/DL Hematocrit 45.9 % Mean Corpuscular Volume 98.3 FL Mean Corpuscular Hemoglobin 33.3 PG Mean Corpuscular Hemoglobin 33.9 % Concent Red Cell Distribution Width 13.1 % Platelet Count 194 TH/MM3 Mean Platelet Volume 7.5 FL Neutrophils (%) (Auto) 60.8 % Lymphocytes (%) (Auto) 25.4 % Monocytes (%) (Auto) 10.5 % Eosinophils (%) (Auto) 3.0 % Basophils (%) (Auto) 0.3 % Neutrophils # (Auto) 4.4 TH/MM3 Lymphocytes # (Auto) 1.8 TH/MM3 Monocytes # (Auto) 0.8 TH/MM3 Eosinophils # (Auto) 0.2 TH/MM3 Basophils # (Auto) 0.0 TH/MM3 CBC Comment DIFF FINAL Differential Comment Prothrombin Time 10.9 SEC Prothromb Time International 1.0 RATIO Ratio Activated Partial 28.3 SEC Thromboplast Time Sodium Level 135 MEQ/L Potassium Level 4.2 MEQ/L Chloride Level 103 MEQ/L Carbon Dioxide Level 24.6 MEQ/L Anion Gap 7 MEQ/L Blood Urea Nitrogen 18 MG/DL Creatinine 1.25 MG/DL Estimat Glomerular Filtration 56 ML/MIN Rate Random Glucose 85 MG/DL Calcium Level 8.4 MG/DL Total Creatine Kinase 61 U/L Triglycerides Level 95 MG/DL Cholesterol Level 96 MG/DL LDL Cholesterol 41 MG/DL HDL Cholesterol 36.3 MG/DL Cholesterol/HDL Ratio 2.64 RATIO Assessment and Plan Problem List: (1) CAD (coronary artery disease) Assessment and Plan: Doing well s/p stent of vein graft to obtuse marginal. Renal indices stable. Groin stable. Rec continue Plavix and baby aspirin. To start reduced dose Xarelto for his atrial fib, possibly enroll him in research protocol examining different antiplatelet/anticoagulation regimens. REC OK to discharge home today from my standpoint, 2-3 week f/u with me (2) Chronic atrial fibrillation Assessment and Plan: Stable, chronic atrial fib. No HR control issues. Patient now agreeable to anticoagulation therapy. Will start Xarelto 15 mg qd, possibly enroll him in research protocol examining different antiplatelet/ anticoagulation regimens. (3) Hypertension Assessment and Plan: Stable. Normotensive. (4) Hyperlipidemia Assessment and Plan: Good lipid profile. Continue statin. Code Status full code Discussed Condition With patient today, and yesterday with family at length Problem Qualifiers (1) CAD (coronary artery disease): Qualified Code: I25.119 - Coronary artery disease involving inupiat coronary artery of inupiat heart with angina pectoris (2) Hypertension: Qualified Code: I10 - Essential hypertension (3) Hyperlipidemia: Qualified Code: E78.2 - Mixed hyperlipidemia Sathish Fletcher MD Jan 11, 2017 08:47
[2017-01-11] MEDS ORDERED: METO50TA11 PO (08:52)
[2017-01-11] MEDS ORDERED: PLAV75TA29 PO (08:52)
[2017-01-11] MEDS ORDERED: XARE15TA PO (08:52)
[2017-01-11] MEDS ORDERED: ASPI81CH25 PO (08:52)
[2017-01-11] MEDS ORDERED: AMLO10 PO (08:52)
[2017-01-11] MEDS ORDERED: ASPIRIN 81 MG CHEW TAB PO SCH (09:00)
[2017-01-11] MEDS ORDERED: CLOPIDOGREL 75 MG TAB PO SCH (09:00)
[2017-01-11] MEDS ORDERED: RIVAROXABAN 15 MG TAB PO SCH (09:00)
--- NOTE | 2017-01-11 09:24 | HHI.PR ---
Subjective Remarks resting comfortably with no distress. no chest pain or so or any other complaints. wants to go home today. Objective Vitals Vital Signs Date Time Temp Pulse Resp B/P Pulse Ox O2 Delivery O2 Flow Rate FiO2 01/11/17 08:00 79 01/11/17 07:03 97.6 79 18 113/82 96 01/11/17 07:00 60 01/11/17 06:08 70 01/11/17 05:16 55 01/11/17 04:22 61 01/11/17 03:30 56 01/11/17 03:20 97.6 61 17 101/69 97 01/11/17 02:00 54 01/11/17 01:26 63 01/11/17 00:09 71 01/10/17 23:55 97.7 70 18 144/70 98 01/10/17 23:55 56 01/10/17 22:00 64 01/10/17 21:00 59 01/10/17 20:15 70 01/10/17 19:20 62 01/10/17 19:20 97.6 63 16 144/69 99 01/10/17 18:00 60 01/10/17 17:00 56 01/10/17 16:00 52 01/10/17 15:00 97.8 52 20 126/72 98 01/10/17 15:00 56 01/10/17 14:00 60 01/10/17 13:00 56 01/10/17 12:00 52 01/10/17 11:26 97.7 63 20 113/50 97 01/10/17 11:00 54 01/10/17 10:00 52 I/O 01/10/17 01/10/17 01/10/17 01/11/17 01/11/17 01/11/17 07:00 15:00 23:00 07:00 15:00 23:00 Intake Total 480 ml 416 ml 741 ml Output Total 1700 ml 1000 ml Balance -1220 ml -584 ml 741 ml Intake Oral 480 ml 200 ml 480 ml IV Total 216 ml 261 ml Output Urine Total 1700 ml 1000 ml # Voids 1 # Bowel Movements 1 1 Result Diagram: 01/11/17 0530 01/11/17 0530 Imaging Last Impressions Myocardial Perfusion Scan Nuc Med 01/07/17 0600 Signed Impressions: Service Date/Time: Saturday, January 07, 2017 09:06 - CONCLUSION: Significant reduction in ejection fraction and significant ischemia in the anterior and lateral wolff. RISK CATEGORY: High (>3%% Annual Mortality Rate) William Doshi MD Chest X-Ray 01/06/17 1000 Signed Impressions: Service Date/Time: December 10:04 - CONCLUSION: Cardiomegaly without acute cardiopulmonary disease. Zeke James Jr., MD CT Angiography 01/06/17 0000 Signed Impressions: Service Date/Time: December 12:46 - CONCLUSION: 1. Probable chronic changes in the lungs with subpleural cysts in the apices and some pleural parenchymal interstitial changes dependently possibly representing early UIP/fibrosis. 2. Old granulomatous disease. 3. No pulmonary embolus or acute infiltrate. 4. 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 5. Dense atherosclerotic calcification of the coronary arteries. Multiple coronary artery bypass graft emanating from the ascending thoracic aorta. Arvin Dsouza MD Objective Remarks GENERAL: This is a well-nourished, well-developed patient, in no apparent distress. CARDIOVASCULAR: Regular rate and regular rhythm without murmurs, gallops, or rubs. RESPIRATORY: Clear to auscultation. Breath sounds equal bilaterally. No wheezes , rales, or rhonchi. GASTROINTESTINAL: Abdomen soft, non-tender, nondistended. Normal, active bowel sounds MUSCULOSKELETAL: Extremities without clubbing, cyanosis, or edema. NEURO: Alert & Oriented x4 to person, place, time, situation. Moves all ext x4 Procedures cardiac cath. Medications and IVs Current Medications Aspirin (Aspirin Chew) 243 mg ONCE ONCE PO Last administered on 01/06/17 10: 16; Start 01/06/17 at 10:00; Stop 01/06/17 at 10:02; Status DC Sodium Chloride 2 ml 2 ml UNSCH PRN IVF FLUSH AFTER USING IV ACCESS; Start at 10:00; Stop 01/06/17 at 14:32; Status DC Sodium Chloride (NS 500 ml Inj) 500 ml @ 500 mls/hr BOLUS ONCE IV Last administered on 01/06/17 12:00; Start 01/06/17 at 12:00; Stop 01/06/17 at 12:59 ; Status DC Iodixanol (VISIPAQUE 320 INJ (Rad CT)) 50 ml STK-MED ONCE IV Last administered on 01/06/17 13:02; Start 01/06/17 at 13:02; Stop 01/06/17 at 13:03; Status DC Sodium Chloride (NS Flush) 2 ml UNSCH PRN IV FLUSH FLUSH AFTER USING IV ACCESS ; Start 01/06/17 at 14:30 Sodium Chloride (NS Flush) 2 ml BID IV FLUSH Last administered on 01/11/17 08: 35; Start 01/06/17 at 21:00 Acetaminophen (Tylenol) 650 mg Q4H PRN PO TEMP > 100.4; Start 01/06/17 at 14:30 Temazepam (Restoril) 15 mg HS PRN PO INSOMNIA; Start 01/06/17 at 14:30; Stop at 16:27; Status DC Acetaminophen (Tylenol) 650 mg Q6H PRN PO PAIN SCALE 1 TO 2 Last administered on 01/10/17 20:30; Start 01/06/17 at 14:30 Magnesium Hydroxide (Milk Of Magnjayla Liq) 30 ml Q12H PRN PO MILD - MODERATE CONSTIPATION Last administered on 01/09/17 20:41; Start 01/06/17 at 14:30 Dextrose (D50w (Vial) Inj) 50 ml UNSCH PRN IV HYPOGLYCEMIA-SEE COMMENTS; Start 01/06/17 at 15:30 Glucagon (Glucagon Inj) 1 mg UNSCH PRN OTHER HYPOGLYCEMIA-SEE COMMENTS; Start 01/06/17 at 15:30 Insulin Aspart (NovoLOG SUPPLEMENTAL SCALE) 1 ACHS SLIDING SCALE SQ ; Start at 16:00 Amlodipine Besylate (Norvasc) 5 mg DAILY PO ; Start 01/07/17 at 09:00; Stop at 09:00; Status DC Aspirin (Aspirin Chew) 162 mg DAILY CHEW ; Start 01/07/17 at 09:00; Stop at 09:00; Status DC Lisinopril (Prinivil) 5 mg DAILY PO ; Start 01/07/17 at 09:00; Stop 01/07/17 at 09:00; Status DC Zolpidem Tartrate (Ambien) 10 mg HS PRN PO INSOMNIA Last administered on 20:30; Start 01/06/17 at 15:30 Non-Formulary Medication 20 mg DAILY PO ; Start 01/07/17 at 09:00; Stop at 09:00; Status DC Albuterol/ Ipratropium (Duoneb Neb) 1 ampule Q2HR NEB PRN NEB SOB/WHEEZING; Start 01/06/17 at 15:30 Metoprolol Succinate (Toprol Xl) 50 mg DAILY PO Last administered on 01/11/17 08:33; Start 01/07/17 at 09:00 Lisinopril (Prinivil) 40 mg DAILY PO Last administered on 01/11/17 08:33; Start 01/07/17 at 09:00 Amlodipine Besylate (Norvasc) 10 mg DAILY PO Last administered on 01/11/17 08: 32; Start 01/07/17 at 09:00 Atorvastatin Calcium (Lipitor) 10 mg DAILY PO Last administered on 01/11/17 08: 34; Start 01/07/17 at 09:00 Aspirin (Aspirin Chew) 81 mg DAILY PO Last administered on 01/10/17 08:49; Start 01/07/17 at 09:00; Stop 01/10/17 at 17:58; Status DC Gabapentin (Neurontin) 100 mg BID PO Last administered on 01/08/17 08:34; Start 01/06/17 at 21:00; Stop 01/08/17 at 15:43; Status DC Glimepiride (Amaryl) 1 mg DAILYAC PO Last administered on 01/11/17 08:31; Start 01/07/17 at 08:00 Pantoprazole Sodium (Protonix) 20 mg DAILY PO Last administered on 01/11/17 08: 33; Start 01/07/17 at 09:00 Duloxetine HCl 60 mg 60 mg BID PO Last administered on 01/11/17 08:33; Start at 21:00 Sodium Chloride (NS 1000 ml Inj) 1,000 ml @ 70 mls/hr [id number] IV Last administered on 01/10/17 05:53; Start 01/07/17 at 07:00; Stop 01/10/17 at 17:58 ; Status DC Regadenoson 0.4 mg 0.4 mg STK-MED ONCE .ROUTE Last administered on 01/07/17 09 :29; Start 01/07/17 at 09:29; Stop 01/07/17 at 09:30; Status DC Sodium Chloride (NS 1000 ml Inj) 1,000 ml @ 75 mls/hr [id number] IV Last administered on 01/10/17 05:52; Start 01/07/17 at 11:54; Stop 01/10/17 at 07:00 ; Status DC Aspirin (Aspirin) 325 mg BLANKMAKER PO ; Start 01/07/17 at 12:00; Stop 01/11/17 at 11:59 Diphenhydramine HCl (Benadryl) 50 mg BLANKMAKER PO Last administered on 15:22; Start 01/07/17 at 12:00; Stop 01/11/17 at 11:59 Diazepam (Valium) 10 mg BLANKMAKER PO Last administered on 01/10/17 15:22; Start 01/07/17 at 12:00; Stop 01/11/17 at 11:59 Gabapentin (Neurontin) 200 mg NOW ONCE PO Last administered on 01/08/17 16:08 ; Start 01/08/17 at 15:45; Stop 01/08/17 at 15:46; Status DC Gabapentin 300 mg 300 mg DAILY PO Last administered on 01/11/17 08:32; Start at 09:00 Heparin Sodium/ Sodium Chloride (Heparin-NS/Pf Inj) 500 ml @ As Directed STK- MED ONCE .ROUTE Last administered on 01/10/17 15:41; Start 01/10/17 at 15:41; Stop 01/10/17 at 15:42; Status DC Midazolam HCl 2 mg 2 mg STK-MED ONCE .ROUTE Last administered on 01/10/17 15: 55; Start 01/10/17 at 15:41; Stop 01/10/17 at 15:42; Status DC Tirofiban/Sodium Chloride 100 ml @ As Directed STK-MED ONCE IV Last administered on 01/10/17 16:14; Start 01/10/17 at 16:06; Stop 01/10/17 at 16:07 ; Status DC Nitroglycerin (Nitroglycerin Inj) 5 ml @ As Directed STK-MED ONCE .ROUTE Last administered on 01/10/17 16:13; Start 01/10/17 at 16:37; Stop 01/10/17 at 16:38 ; Status DC Clopidogrel Bisulfate 600 mg 600 mg STK-MED ONCE .ROUTE Last administered on 16:50; Start 01/10/17 at 16:38; Stop 01/10/17 at 16:39; Status DC Sodium Chloride (NS 1000 ml Inj) 1,000 ml @ 100 mls/hr Q10H IV Last administered on 01/11/17 01:27; Start 01/10/17 at 16:43; Stop 01/11/17 at 04:42; Status DC IV Flush (NS Flush) 2 ml UNSCH PRN IVF FLUSH AFTER USING IV ACCESS; Start 01/10 at 16:45 Temazepam (Restoril) 15 mg HS PRN PO SLEEP; Start 01/10/17 at 16:45 Aspirin (Aspirin Chew) 81 mg DAILY PO Last administered on 01/11/17 08:31; Start 01/11/17 at 09:00 Clopidogrel Bisulfate 75 mg 75 mg DAILY PO Last administered on 01/11/17 08:31 ; Start 01/11/17 at 09:00 Tirofiban/Sodium Chloride (Aggrastat Infusion Inj) 250 ml @ 20.43 mls/ hr [id number] IV Last administered on 01/10/17 18:37; Start 01/10/17 at 16:43; Stop 01/11/17 at 10:42 Heparin Sodium (Porcine) (Heparin Inj) 10,000 units STK-MED ONCE .ROUTE Last administered on 01/10/17 16:07; Start 01/10/17 at 17:17; Stop 01/10/17 at 17:18 ; Status DC Atropine Sulfate (Atropine Inj) 1 mg STK-MED ONCE .ROUTE ; Start 01/10/17 at 19: 14; Stop 01/10/17 at 19:15; Status DC Rivaroxaban (Xarelto) 15 mg DAILY PO ; Start 01/11/17 at 09:00 A/P Assessment and Plan Exertional dyspnea Atypical chest pain CTA ruled out PE Cardiology consultation appreciated 2-D echo with EF 50%. ACS ruled out per protocol with serial cardiac enzyme and EKGs Positive nuclear stress test 01/07/17 s/p cardiac cath with 1. Severe hamilton three-vessel disease, severe left main disease. 2. Patent left internal mammary artery to the LAD, totally occluded vein graft to the diagonal, severely diseased vein graft to the obtuse marginal now status post angioplasty and stent of this graft. 3. Fair right coronary artery homo collaterals and overall scant to fair [id number] collaterals. cardiology follow-up appreciated and cleared for discharge. continue aspirin, plavix, xarelto, statin,metoprolol and lisinopril. 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 Acute renal failure-resolved Prerenal secondary to dehydration Gentle IV fluid hydration, monitor BUN and creatinine and avoid all nephrotoxic drugs Chronic atrial fibrillation continue with aspirin and xarelto- on metoprolol. Obstructive sleep apnea CPAP/BiPAP at night when necessary Hypertension Continue BB,Norvasc, lisinopril Hyperlipidemia Continue statin DVT prophylaxis: Bilateral SCDs Discharge Planning dc home today with f/u with pcp and cardiology. see med list. d/w the patient. time spent 31 min. Gela Wells MD Jan 11, 2017 09:24
[2017-01-11] MEDS ORDERED: LISI-515 PO (09:30)
--- NOTE | 2017-01-11 09:31 | HHI.DCPOC ---
Discharge Care Plan Diagnosis: (1) CAD (coronary artery disease) Your Health Problems Are: Chest Pain Goals to Promote Your Health * To prevent worsening of your condition and complications * To maintain your health at the optimal level Directions to Meet Your Goals Take your medications as prescribed Follow your dietary instruction Follow activity as directed Keep your appointments as scheduled Take your immunizations and boosters as scheduled If your symptoms worsen call your PCP, if no PCP go to Urgent Care Center or Emergency Room Smoking is Dangerous to Your Health. Avoid second hand smoke Call the 24-hour hour crisis hotline for domestic abuse at Gela Wells MD Jan 11, 2017 09:31
--- NOTE | 2017-01-11 09:32 | HHI.DS ---
Discharge Summary Admission Date Jan 07, 2017 at 13:39 Discharge Date: Jan 11, 2017 Admitting Diagnosis Exertional Dyspnea, MARIANO (1) Exertional dyspnea ICD Code: R06.09 (2) ARF (acute renal failure) ICD Code: N17.9 Diagnosis: Principal (3) TAMI (obstructive sleep apnea) ICD Code: G47.33 Diagnosis: Secondary (4) Benign hypertension ICD Code: I10 Diagnosis: Secondary (5) Hyperlipidemia ICD Code: E78.5 Diagnosis: Secondary (6) Chronic atrial fibrillation ICD Code: I48.2 Diagnosis: Secondary Procedures cardiac cath. Brief History - From Admission 81-year-old male with a history of diabetes type 2 [place] atrial fibrillation came to the ED for evaluation of shortness of breath with exertions 10 days duration associated with cough described as dry. Patient states minimal walking brings about shortness of breath. He also reports mild substernal chest pain without any radiation. He has a history of atrial fibrillation however is not currently on any oral anticoagulation ordered and aspirin. Over the past 5 days patient lost 5 pounds and reported decreased appetite. Patient was supposed to follow up with his cardiology for a nuclear stress test this week. He denies any GI bleed and has no report of orthopnea CBC/BMP: 01/11/17 0530 01/11/17 0530 Significant Findings Laboratory Tests Test 01/10/17 01/11/17 05:06 05:30 Blood Urea Nitrogen 21 MG/DL (7-18) Estimat Glomerular Filtration 61 ML/MIN (>89) 56 ML/MIN (>89) Rate Calcium Level 8.3 MG/DL 8.4 MG/DL (8.5-10.1) (8.5-10.1) Monocytes (%) (Auto) 10.5 % (0.0-8.0) Sodium Level 135 MEQ/L (136-145) Cholesterol Level 96 MG/DL (120-200) HDL Cholesterol 36.3 MG/DL (40.0-60.0) Imaging Last Impressions Myocardial Perfusion Scan Nuc Med 01/07/17 0600 Signed Impressions: Service Date/Time: Saturday, January 07, 2017 09:06 - CONCLUSION: Significant reduction in ejection fraction and significant ischemia in the anterior and lateral wolff. RISK CATEGORY: High (>3%% Annual Mortality Rate) William Doshi MD Chest X-Ray 01/06/17 1000 Signed Impressions: Service Date/Time: December 10:04 - CONCLUSION: Cardiomegaly without acute cardiopulmonary disease. Zeke James Jr., MD CT Angiography 01/06/17 0000 Signed Impressions: Service Date/Time: December 12:46 - CONCLUSION: 1. Probable chronic changes in the lungs with subpleural cysts in the apices and some pleural parenchymal interstitial changes dependently possibly representing early UIP/fibrosis. 2. Old granulomatous disease. 3. No pulmonary embolus or acute infiltrate. 4. 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 5. Dense atherosclerotic calcification of the coronary arteries. Multiple coronary artery bypass graft emanating from the ascending thoracic aorta. Arvin Dsouza MD PE at Discharge GENERAL: This is a well-nourished, well-developed patient, in no apparent distress. CARDIOVASCULAR: Regular rate and regular rhythm without murmurs, gallops, or rubs. RESPIRATORY: Clear to auscultation. Breath sounds equal bilaterally. No wheezes , rales, or rhonchi. GASTROINTESTINAL: Abdomen soft, non-tender, nondistended. Normal, active bowel sounds MUSCULOSKELETAL: Extremities without clubbing, cyanosis, or edema. NEURO: Alert & Oriented x4 to person, place, time, situation. Moves all ext x4 Hospital Course Exertional dyspnea Atypical chest pain CTA ruled out PE Cardiology consultation appreciated 2-D echo with EF 50%. ACS ruled out per protocol with serial cardiac enzyme and EKGs Positive nuclear stress test 01/07/17 s/p cardiac cath with 1. Severe wilton three-vessel disease, severe left main disease. 2. Patent left internal mammary artery to the LAD, totally occluded vein graft to the diagonal, severely diseased vein graft to the obtuse marginal now status post angioplasty and stent of this graft. 3. Fair right coronary artery homo collaterals and overall scant to fair [id number] collaterals. cardiology follow-up appreciated and cleared for discharge. continue aspirin, plavix, xarelto, statin,metoprolol and lisinopril. 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 Acute renal failure-resolved Prerenal secondary to dehydration Gentle IV fluid hydration, monitor BUN and creatinine and avoid all nephrotoxic drugs Chronic atrial fibrillation continue with aspirin and xarelto- on metoprolol. Obstructive sleep apnea CPAP/BiPAP at night when necessary Hypertension Continue BB,Norvasc, lisinopril Hyperlipidemia Continue statin DVT prophylaxis: Bilateral SCDs Pt Condition on Discharge: Good Discharge Disposition: Discharge Home Discharge Time: > 30 minutes Discharge Instructions DIET: Follow Instructions for: Heart Healthy Diet, Diabetic Diet Activities you can perform: Regular-No Restrictions Follow up Referrals: Cardiology PCP Follow-up New Medications: Amlodipine (Norvasc) 10 Mg Tab 10 MG PO DAILY BLOOD PRESSURE Days 30 Ref 11 TAB Aspirin (Aspirin Low Strength) 81 Mg Chew 81 MG PO DAILY CLOT PREVENTION Days 30 Ref 11 EA Clopidogrel (Plavix) 75 Mg Tab 75 MG PO DAILY CLOT PREVENTION Days 30 Ref 11 TAB Lisinopril (Lisinopril) 20 Mg Tab 40 MG PO DAILY hypertension Days 30 Ref 0 TAB Metoprolol Succinate ER 24 HR (Metoprolol Succinate ER 24 HR) 50 Mg Tab 50 MG PO DAILY HEART PROTECTION Days 30 Ref 11 TAB Rivaroxaban (Xarelto) 15 Mg Tab 15 MG PO DAILY STROKE PREVENTION Days 30 Ref 11 TAB Continued Medications: Duloxetine DR (Cymbalta DR) 60 Mg Capdr 60 MG PO BID #30 Ref 0 CAP Gabapentin (Gabapentin) 300 Mg Cap 300 MG PO DAILY #60 Ref 0 CAP Glimepiride (Glimepiride) 1 Mg Tab 1 MG PO DAILY Take with breakfast or first main meal Blood Sugar Management #30 Ref 0 TAB Simvastatin (Simvastatin) 20 Mg Tab 20 MG PO DAILY Cholesterol Management #30 Ref 0 TAB Zolpidem (Zolpidem) 10 Mg Tab 10 MG PO HS PRN INSOMNIA Ref 0 TAB Discontinued Medications: Amlodipine (Amlodipine) 5 Mg Tab 5 MG PO DAILY Blood Pressure Management #30 Ref 0 TAB Aspirin (Aspirin) 81 Mg Chew 162 MG CHEW DAILY Ref 0 TAB Lisinopril (Lisinopril) 5 Mg Tab 5 MG PO DAILY Blood Pressure Management #30 Ref 0 TAB Gela Wells MD Jan 11, 2017 09:32
== END 2017-01-11 11:24 | disposition home or self-care (01) | DRG 249 ==
LOC: NEPC 09:38 → NEDA 14:30 → NEPFCDU 16:54 → OBSVTOIN 01-07 13:39 → HCIN 01-07 23:00
PROVIDERS: ADMIT Internal Medicine; ATTEND Internal Medicine
PROC: 5A09357 Assistance with Respiratory Ventilation, Less than 24 Consecutive Hours, Continuous Positive Airway Pressure (ICD-10-PCS; 2017-01-06)
PROC: 4A023N7 Measurement of Cardiac Sampling and Pressure, Left Heart, Percutaneous Approach (ICD-10-PCS; 2017-01-10)
PROC: B2131ZZ Fluoroscopy of Multiple Coronary Artery Bypass Grafts using Low Osmolar Contrast (ICD-10-PCS; 2017-01-10)
PROC: B2111ZZ Fluoroscopy of Multiple Coronary Arteries using Low Osmolar Contrast (ICD-10-PCS; 2017-01-10)
PROC: B2181ZZ Fluoroscopy of Left Internal Mammary Bypass Graft using Low Osmolar Contrast (ICD-10-PCS; 2017-01-10)
PROC: 02703DZ Dilation of Coronary Artery, One Artery with Intraluminal Device, Percutaneous Approach (ICD-10-PCS; principal; 2017-01-10 15:00)
DX: I25.709 Atherosclerosis of coronary artery bypass graft(s), unspecified, with unspecified angina pectoris (principal); N17.9 Acute kidney failure, unspecified; I42.9 Cardiomyopathy, unspecified; I25.82 Chronic total occlusion of coronary artery; I71.2 Thoracic aortic aneurysm, without rupture; Z99.81 Dependence on supplemental oxygen; I48.2 Chronic atrial fibrillation; G62.9 Polyneuropathy, unspecified; I10 Essential (primary) hypertension; F32.9 Major depressive disorder, single episode, unspecified; I25.119 Atherosclerotic heart disease of native coronary artery with unspecified angina pectoris; I65.21 Occlusion and stenosis of right carotid artery; J44.9 Chronic obstructive pulmonary disease, unspecified; E86.0 Dehydration; R63.0 Anorexia; E11.9 Type 2 diabetes mellitus without complications; G47.33 Obstructive sleep apnea (adult) (pediatric); K21.9 Gastro-esophageal reflux disease without esophagitis; K44.9 Diaphragmatic hernia without obstruction or gangrene; I25.2 Old myocardial infarction; Z86.73 Personal history of transient ischemic attack (TIA), and cerebral infarction without residual deficits; Z79.82 Long term (current) use of aspirin; Z95.1 Presence of aortocoronary bypass graft; Z86.010 Personal history of colon polyps; M10.9 Gout, unspecified; N52.9 Male erectile dysfunction, unspecified; E66.9 Obesity, unspecified; M19.90 Unspecified osteoarthritis, unspecified site; Z87.891 Personal history of nicotine dependence; Z82.49 Family history of ischemic heart disease and other diseases of the circulatory system; E78.2 Mixed hyperlipidemia
CPT/HCPCS: 71010; 71275; 78452; 80048; 80053; 80061; 82550; 82552; 82948; 83735; 83880; 84484; 85002; 85025; 85610; 85730; 92928; 93005; 93017; 93306; 93454; 94002; 96365; 96366; A9502; C1725; C1769; C1874; C1884; C1887; C1893; G8987-GP; G8988-GP; J0461; J1644; J2250; J2785; J3246; J7030; J7040; Q0163; Q9967

== ENCOUNTER 2017-04-25 12:42 | Inpatient (IN) | payer MEDICARE ==
[~2017-04-25] VITALS: Ht 188 cm; Wt 107.6 kg
[~2017-04-25 12:42] MED LIST changes: +AMLO10 PO; -AMLO5TAB96 PO; -ASPI81 PO; +ASPI81CH25 PO; +CYMB60CA PO; +GABA300C5 PO; +GLIM1TAB PO; +LISI-515 PO; +METO1TAB9 PO; +PLAV75TA29 PO; -TAB-TAB PO; +XARE15TA PO
[2017-04-25 12:54] VITALS: BP 173/93; PULSE 94; RESP 20; TEMP 98.2; O2SAT 95
[2017-04-25 13:02] VITALS: RESP 16; O2SAT 100
[2017-04-25] MEDS ORDERED: ORPHENADRINE INJ 60 MG/2 ML AMP IM ONE (13:30)
[2017-04-25] MEDS ORDERED: oxyCODONE/ACETAMINOPHEN 5 MG/325 MG TAB PO ONE ×2 (13:30→16:30)
[2017-04-25] MEDS ORDERED: SODIUM CHLORIDE 0.9% FLUSH 5 ML FLUSH IV FLUSH PRN (13:30)
[2017-04-25 14:08] LABS: AUTOMATED NEUTROPHIL # 5.8 TH/MM3 (1.8-7.7); BASOPHIL # 0.1 TH/MM3 (0-0.2); BASOPHIL % 0.9 % (0.0-2.0); EOSINOPHIL # 0.6 TH/MM3 (0-0.4); HEMATOCRIT 43.3 % (39.0-51.0); HEMO FLAGS DIFF FINAL; LYMPH % 24.3 % (9.0-44.0); LYMPHOCYTE # 2.4 TH/MM3 (1.0-4.8); MEAN CELL VOLUME 96.2 FL (80.0-100.0); MEAN CORPUSCULAR HEMOGLOBIN 32.2 PG (27.0-34.0); MEAN CORPUSCULAR HGB CONC 33.5 % (32.0-36.0); MONO % 9.9 % (0.0-8.0); NEUT % 58.9 % (16.0-70.0); PLATELET COUNT 327 TH/MM3 (150-450); RED CELL DISTRIBUTION WIDTH 14.3 % (11.6-17.2); WHITE BLOOD COUNT 9.9 TH/MM3 (4.0-11.0)
--- NOTE | 2017-04-25 14:17 | PD ---
HPI Chief Complaint: Fall Time Seen by Provider: 13:24 Travel History International Travel<30 days: No Contact w/Intl Traveler<30days: No Traveled to known affect area: No History of Present Illness HPI Patient is an 81-year-old male presenting to emergency department for evaluation of back pain after a mechanical fall last night. Patient states that he was getting out of his recliner and was unable to put the foot rest down completely and when he stood up and hit him in the back of the legs causing him to fall. He states that when he woke up his face was in the seat of the chair that he had been previously sitting in. He reports being disoriented and not knowing where he was for a few minutes. He currently complains of low back pain, 01/20. He states his back is aching and throbbing. He denies any weakness in his lower extremities, bladder or bowel, no saddle paresthesia. Patient further denies any headache, neck pain. He denies any chest pain or shortness of breath or dizziness prior to the fall. He states he had to call his to help him get off of the floor. PFSH Past Medical History Hx Anticoagulant Therapy: Yes Asthma: No Blood Disorders: No Anxiety: No Depression: Yes Heart Rhythm Problems: Yes (Afib) Cancer: No Cardiovascular Problems: Yes High Cholesterol: No Chemotherapy: No Chest Pain: Yes Congestive Heart Failure: Yes COPD: No Cerebrovascular Accident: Yes Diabetes: Yes Endocrine: No Gastrointestinal Disorders: Yes GERD: Yes Genitourinary: No Hiatal Hernia: Yes Hypertension: Yes Immune Disorder: No Implanted Vascular Access Dvce: Yes Musculoskeletal: Yes (knee sx) Neurologic: No Psychiatric: Yes Reproductive: No Respiratory: Yes Myocardial Infarction: Yes Radiation Therapy: No Sleep Apnea: Yes (pt [facility]) Thyroid Disease: No Past Surgical History Abdominal Surgery: Yes (x5 abd hernia hemorroidectomy) Body Medical Devices: wire mesh to the chest Cardiac Surgery: Yes (triple by-pass 1992) Thoracic Surgery: Yes (CABG) Other Surgery: Yes Social History Alcohol Use: Yes (couple of drinks per day) Tobacco Use: No Substance Use: No Allergies-Medications (Allergen,Severity, Reaction): Coded Allergies: No Known Allergies (Verified , 07/28/11) Reported Meds & Prescriptions Reported Meds & Active Scripts Active Metoprolol Succinate ER 24 HR (Metoprolol Succinate) 50 Mg Tab 50 Mg PO DAILY 30 Days Plavix (Clopidogrel Bisulfate) 75 Mg Tab 75 Mg PO DAILY 30 Days Aspirin Low Strength (Aspirin) 81 Mg Chew 81 Mg PO DAILY 30 Days Reported Jamie STEVENSON (Duloxetine HCl) 60 Mg Capdr 60 Mg PO BID Review of Systems Except as stated in HPI: all other systems reviewed are Neg Musculoskeletal: Positive: Myalgias, Pain Physical Exam Narrative GENERAL: Well-developed, well-nourished, alert elderly gentleman. Resting comfortably in no acute distress. SKIN: Warm and dry. HEAD: Atraumatic. Normocephalic. EYES: Pupils equal and round. No scleral icterus. No injection or drainage. ENT: No nasal bleeding or discharge. Mucous membranes dry. NECK: Trachea midline. No JVD. CARDIOVASCULAR: Regular rate and rhythm. RESPIRATORY: No accessory muscle use. Clear to auscultation. Breath sounds equal bilaterally. GASTROINTESTINAL: Abdomen soft, non-tender, nondistended. Hepatic and splenic margins not palpable. MUSCULOSKELETAL: Extremities without clubbing, cyanosis, or edema. No obvious deformities. Tenderness to palpation paraspinal musculature in the lumbar region. No spinal tenderness or step-off noted. NEUROLOGICAL: Awake and alert. No obvious cranial nerve deficits. Motor grossly within normal limits. Five out of 5 muscle strength in the arms and legs. Normal speech. PSYCHIATRIC: Appropriate mood and affect; insight and judgment normal. Data Data Last Documented VS Vital Signs Date Time Temp Pulse Resp B/P (MAP) Pulse Ox O2 Delivery O2 Flow Rate FiO2 04/25/17 13:02 99 Room Air 04/25/17 13:02 16 04/25/17 12:54 98.2 94 173/93 (119) Orders Orders Complete Blood Count With Diff (04/25/17 13:24) Comprehensive Metabolic Panel (04/25/17 13:24) Creatine Kinase (Cpk) (04/25/17 13:24) Ct Brain W/O Iv Contrast(Rout) (04/25/17 13:24) Blood Glucose (04/25/17 13:24) Ecg Monitoring (04/25/17 13:24) Iv Access Insert/Monitor (04/25/17:24) Oximetry (04/25/17 13:24) Sodium Chloride 0.9% Flush (Ns Flush) (04/25/17 13:30) Ct Cerv Spine W/O Contrast (04/25/17 ) Spine, Lumbar - Ltd (Ap & Lat) (04/25/17 ) Orphenadrine Inj (Norflex Inj) (04/25/17 13:30) Oxycodone-Acetamin 5-325 Mg (Percocet (04/25/17 13:30) Sodium Chlorid 0.9% 500 Ml Inj (Ns 500 M (04/25/17 15:30) Admit Order (Ed Use Only) (04/25/17 16:28) Oxycodone-Acetamin 5-325 Mg (Percocet (04/25/17 16:30) Place In Observation (04/25/17 ) Vital Signs (Adult) Q4H (04/25/17 16:31) Activity Oob With Assistance (04/25/17 16:31) Funeral Planner / Telemetry .CONTINUOUS (04/25/17 16:31) Diet Heart Healthy (04/25/17 Dinner) Sodium Chloride 0.9% Flush (Ns Flush) (04/25/17 16:45) Sodium Chloride 0.9% Flush (Ns Flush) (04/25/17 21:00) Basic Metabolic Panel (Bmp) (04/26/17 06:00) Complete Blood Count With Diff (04/26/17 06:00) Pt Request For Service (04/25/17 16:31) Case Management Consult (04/25/17 16:31) Naloxone Inj (Narcan Inj) (04/25/17 16:45) Labs Laboratory Tests Test 04/25/17 13:52 White Blood Count 9.9 TH/MM3 Red Blood Count 4.50 MIL/MM3 Hemoglobin 14.5 GM/DL Hematocrit 43.3 % Mean Corpuscular Volume 96.2 FL Mean Corpuscular Hemoglobin 32.2 PG Mean Corpuscular Hemoglobin Concent 33.5 % Red Cell Distribution Width 14.3 % Platelet Count 327 TH/MM3 Mean Platelet Volume 7.1 FL Neutrophils (%) (Auto) 58.9 % Lymphocytes (%) (Auto) 24.3 % Monocytes (%) (Auto) 9.9 % Eosinophils (%) (Auto) 6.0 % Basophils (%) (Auto) 0.9 % Neutrophils # (Auto) 5.8 TH/MM3 Lymphocytes # (Auto) 2.4 TH/MM3 Monocytes # (Auto) 1.0 TH/MM3 Eosinophils # (Auto) 0.6 TH/MM3 Basophils # (Auto) 0.1 TH/MM3 CBC Comment DIFF FINAL Differential Comment Blood Urea Nitrogen 17 MG/DL Creatinine 1.47 MG/DL Random Glucose 115 MG/DL Total Protein 7.8 GM/DL Albumin 3.5 GM/DL Calcium Level 8.8 MG/DL Alkaline Phosphatase 44 U/L Aspartate Amino Transf (AST/SGOT) 25 U/L Alanine Aminotransferase (ALT/SGPT) 33 U/L Total Bilirubin 0.5 MG/DL Sodium Level 134 MEQ/L Potassium Level 4.3 MEQ/L Chloride Level 100 MEQ/L Carbon Dioxide Level 26.4 MEQ/L Anion Gap 8 MEQ/L Estimat Glomerular Filtration Rate 46 ML/MIN Total Creatine Kinase 91 U/L MDM Medical Decision Making Medical Screen Exam Complete: Yes Emergency Medical Condition: Yes Interpretation(s) Last Impressions Head CT 04/25/17 1324 Signed Impressions: Service Date/Time: Tuesday, April 25, 2017 14:04 - CONCLUSION: Negative Samson Gonzales MD FACR Cervical Spine CT 04/25/17 0000 Signed Impressions: Service Date/Time: Tuesday, April 25, 2017 14:04 - CONCLUSION: 1. No fracture or dislocation. 2. Multilevel degenerative changes. 3. Carotid artery atherosclerotic calcifications. Zeke James Jr., MD Laboratory Tests Test 04/25/17 13:52 White Blood Count 9.9 TH/MM3 Red Blood Count 4.50 MIL/MM3 Hemoglobin 14.5 GM/DL Hematocrit 43.3 % Mean Corpuscular Volume 96.2 FL Mean Corpuscular Hemoglobin 32.2 PG Mean Corpuscular Hemoglobin Concent 33.5 % Red Cell Distribution Width 14.3 % Platelet Count 327 TH/MM3 Mean Platelet Volume 7.1 FL Neutrophils (%) (Auto) 58.9 % Lymphocytes (%) (Auto) 24.3 % Monocytes (%) (Auto) 9.9 % Eosinophils (%) (Auto) 6.0 % Basophils (%) (Auto) 0.9 % Neutrophils # (Auto) 5.8 TH/MM3 Lymphocytes # (Auto) 2.4 TH/MM3 Monocytes # (Auto) 1.0 TH/MM3 Eosinophils # (Auto) 0.6 TH/MM3 Basophils # (Auto) 0.1 TH/MM3 CBC Comment DIFF FINAL Differential Comment Blood Urea Nitrogen 17 MG/DL Creatinine 1.47 MG/DL Random Glucose 115 MG/DL Total Protein 7.8 GM/DL Albumin 3.5 GM/DL Calcium Level 8.8 MG/DL Alkaline Phosphatase 44 U/L Aspartate Amino Transf (AST/SGOT) 25 U/L Alanine Aminotransferase (ALT/SGPT) 33 U/L Total Bilirubin 0.5 MG/DL Sodium Level 134 MEQ/L Potassium Level 4.3 MEQ/L Chloride Level 100 MEQ/L Carbon Dioxide Level 26.4 MEQ/L Anion Gap 8 MEQ/L Estimat Glomerular Filtration Rate 46 ML/MIN Total Creatine Kinase 91 U/L Vital Signs Date Time Temp Pulse Resp B/P (MAP) Pulse Ox O2 Delivery O2 Flow Rate FiO2 04/25/17 12:54 98.2 94 20 173/93 (119) 95 Differential Diagnosis Contusion versus hemorrhage versus strain versus spasm versus discogenic pain versus rhabdomyolysis versus other Narrative Course Patient is an 81-year-old male that presented to emergency room evaluation of back pain after a mechanical fall last night. Patient's vital signs are stable , there are no focal deficits noted on exam. Labs and imaging ordered and pending. CBC is unremarkable CMP with elevated creatinine at 1.47, 50ml bolus of NS ordered. CT scan of the brain is read by the radiologist negative. CT scan of the cervical spine shows no acute fracture dislocation. Degenerative changes noted multilevel, carotid artery atherosclerotic calcifications. X-ray of the lumbar spine also read by radiology shows minimal loss of vertebral body height, acute compression could be confirmed by MRI if patient remains symptomatic. Patient was reassessed, he reports mild improvement in his pain. He was reassured this time as there are no acute findings. Patient will be discharged home, attempted to ambulate patient prior to discharge. Patient was unable to get out of bed. Patient will be admitted under observation for intractable pain. Percocet ordered times one dose. Discussed with Dr. Verma. Admit orders placed. Diagnosis Primary Impression: Acute lumbar myofascial strain Qualified Codes: S39.012A - Strain of muscle, fascia and tendon of lower back , initial encounter Additional Impressions: Spasm of lumbar paraspinous muscle Fall Qualified Codes: W19.XXXA - Unspecified fall, initial encounter Admitting Information Admitting Physician Requests: Observation Condition: Stable Maria Eugenia Lugo Apr 25, 2017 14:17
--- NOTE | 2017-04-25 14:28 | RADRPT ---
EXAM DATE/TIME: 04/25/2017 14:04 [facility] COMPARISON: No previous studies available for comparison. INDICATIONS : Patient fell last night RADIATION DOSE: 64.56 CTDIvol (mGy) MEDICAL HISTORY : Hypertension. Diabetes mellitus type 1. Cardiovascular disease SURGICAL HISTORY : None. ENCOUNTER: Initial ACUITY: 1 day PAIN SCALE: 0/10 LOCATION: cranial TECHNIQUE: Multiple contiguous axial images were obtained of the head. Using automated exposure control and adj ustment of the mA and/or kV according to patient size, radiation dose was kept as low as reasonably a chievable to obtain optimal diagnostic quality images. DICOM format image data is available electro nically for review and comparison. FINDINGS: CEREBRUM: The ventricles are normal for age. No evidence of midline shift, mass lesion, hemorrhage or acute in farction. No extra-axial fluid collections are seen. POSTERIOR FOSSA: The cerebellum and brainstem are intact. The 4th ventricle is midline. The cerebellopontine angle i s unremarkable. EXTRACRANIAL: The visualized portion of the orbits is intact. SKULL: The calvaria is intact. No evidence of skull fracture. CONCLUSION: Negative Samson Gonzales MD FACR on April 25, 2017 at 14:26 Board Certified Radiologist. This report was verified electronically.
--- NOTE | 2017-04-25 14:33 | RADRPT ---
EXAM DATE/TIME: 04/25/2017 14:04 [facility] COMPARISON: No previous studies available for comparison. INDICATIONS : Patient fell last night. RADIATION DOSE: 21.71 CTDIvol (mGy) MEDICAL HISTORY : Hypertension. Diabetes mellitus type 1. Cardiovascular disease SURGICAL HISTORY : None. ENCOUNTER: Initial ACUITY: 1 day PAIN SCALE: 2/10 LOCATION: neck TECHNIQUE: Volumetric scanning of the cervical spine was performed. Multiplanar reconstructions in the sagittal, coronal and oblique axial planes were performed. Using automated exposure control and adjustment o f the mA and/or kV according to patient size, radiation dose was kept as low as reasonably achievable to obtain optimal diagnostic quality images. DICOM format image data is available electronically f or review and comparison. FINDINGS: VERTEBRAE: Normal vertebral body height. ALIGNMENT: No evidence of subluxation. Calcified atherosclerotic plaque involving the carotid arteries bilaterally. C2-C3: The bony spinal canal is normal in size. No evidence of disc bulge or herniation. The neural forami na are bilaterally patent. C3-C4: There is a broad-based disc osteophyte complex without central canal stenosis. Bony uncovertebral hyp ertrophy contributes to severe bilateral neural foraminal narrowing. C4-C5: No significant disc bulge or protrusion. Bony uncovertebral hypertrophy is more pronounced on the lef t. The neural foramen remain patent. C5-C6: A broad-based disc osteophyte complex without central canal stenosis. Bony uncovertebral hypertrophy generates a moderate right and mild left neural foraminal narrowing. C6-C7: A broad-based disc osteophyte complex without central canal stenosis. Bony uncovertebral hypertrophy without significant neural foraminal narrowing. C7-T1: The bony spinal canal is normal in size. No evidence of disc bulge or herniation. The neural forami na are bilaterally patent. CONCLUSION: 1. No fracture or dislocation. 2. Multilevel degenerative changes. 3. Carotid artery atherosclerotic calcifications. Zeke James Jr., MD on April 25, 2017 at 14:27 Board Certified Radiologist. This report was verified electronically.
[2017-04-25 14:57] LABS: BLOOD UREA NITROGEN 17 MG/DL (7-18)
[2017-04-25 14:58] LABS: GLOMERULAR FILTRATION RATE 46 ML/MIN (>89)
[2017-04-25 14:59] LABS: ALKALINE PHOSPHATASE 44 U/L (45-117); ALT (GPT) 33 U/L (12-78); ANION GAP 8 MEQ/L (5-15); AST (GOT) 25 U/L (15-37); BICARBONATE 26.4 MEQ/L (21.0-32.0); CHLORIDE 100 MEQ/L (98-107); CREATINE KINASE 91 U/L (39-308); POTASSIUM 4.3 MEQ/L (3.5-5.1); SODIUM (NA) 134 MEQ/L (136-145); TOTAL BILIRUBIN ADULT 0.5 MG/DL (0.2-1.0)
--- NOTE | 2017-04-25 15:14 | RADRPT ---
EXAM DATE/TIME: 04/25/2017 14:42 [facility] COMPARISON: No previous studies available for comparison. INDICATIONS : Patient states lower back pain after fall. MEDICAL HISTORY : Hypertension. Diabetes mellitus type II. Cardiovascular disease. SURGICAL HISTORY : None. ENCOUNTER: Initial ACUITY: 1 day PAIN SCORE: 8/10 LOCATION: Bilateral Lumbar FINDINGS: There is minimal loss of disc space height at L1 and L4. There is good preservation of vertebral bod y heights. Alignment anatomic. CONCLUSION: Minimal loss of vertebral body height as above. Acute compression could be confirmed by MRI if the p atient remains symptomatic Samson Gonzales MD FACR on April 25, 2017 at 15:11 Board Certified Radiologist. This report was verified electronically.
[2017-04-25] MEDS ORDERED: SODIUM CHLORID 0.9% 500 ML INJ 500 ML IV ONE (15:30)
[2017-04-25] MEDS ORDERED: NALOXONE HCL 0.4 MG/ML AMP IV PUSH PRN (16:45)
--- NOTE | 2017-04-25 17:34 | HHI.HP ---
[facility] Unknown Admission Diagnosis intractable pain s/p mechanical fall. Diagnoses: Chief Complaint: Low back pain Travel History International Travel<30 Days: No Contact w/Intl Traveler <30 Da: No Traveled to Known Affected Are: No History of Present Illness Written by Javier Godinez PA-C acting as scribe for Dr. Eliz Verma on 04/25/17 at 17:20. Mr. Stoner is 81 yo, with history of falls, vertigo, right and left carotid stenosis (with left endarterectomy), diabetic neuropathy, headaches for two months, and cardiac stent placement two months ago. Mr. Stoner is 81 yo, who fell at home on the evening of 04/24/17 at approximately 10:15 PM. Pt stated he was getting up from a recliner and the legs "kicked out and hit me in the shins knocking me to the ground." Pt is uncertain if he lost consciousness and "if I didn't I was damn close to doing it." Pt stated he could not ambulate and crawled into a nearby chair and used his cell phone to call his who was already in her bed." He stated he used a wheeled roller to get to his bed and then slept at home. He awoke with pain and called EMS this morning to come to [facility] [place] [facility] for evaluation of his condition. At time of interview, he complained of low back pain that was "excruciating." He denied inability to move his legs, numbness, tingling, difficulty urinating or defecating. Review of Systems Constitutional: COMPLAINS OF: Diaphoretic episodes (one significant event first of March "drenched my shirt" and "I sweat when I eat breakfast.") Endocrine: DENIES: Polyuria, Polyphagia Eyes: DENIES: Blurred vision Ears, nose, mouth, throat: COMPLAINS OF: Vertigo (Followed at [place] Epistaxis ( for past two weeks.) Respiratory: COMPLAINS OF: Apneas (Sleep apnea, uses CPAP.), Shortness of breath Cardiovascular: DENIES: Chest pain, Palpitations Gastrointestinal: DENIES: Black stools, Diarrhea, Nausea, Vomiting Genitourinary: DENIES: Urgency, Hematuria, Dysuria Integumentary: DENIES: Abnormal pigmentation, Pruritus Hematologic/lymphatic: DENIES: Lymphadenopathy Immunologic/allergic: DENIES: Urticaria Neurologic: COMPLAINS OF: Headache (Present for two months, frontal and middle of head, No previous history of headaches.), Poor Balance (Falls 2-3 over past several months without headstike or loss of consciousness.) Psychiatric: DENIES: Anxiety, Mood changes Except as stated in HPI: all other systems reviewed are Neg Past Family Social History Past Medical History Atrial fibrillation. Hypertension Congestive heart failure (20% ef before stent, 40% after stenting) Dizziness when he stands up. Shortness of breath GERD Hiatal Hernia Sleep apnea Neuropathy lung scarring Chronic kidney disease Previous stroke (no residual issues) Heart attack (20 years ago) Right and left carotid stenosis Vertigo Gout Colon polyps Past Surgical History Cabg (1992) Cardiac stents two months ago (February 2017) Left endarterectomy (80% stenotic before surgery) Abdominal surgery x5 inclusive of abdominal hernia and hemorrhoidectomy Knee surgery. Reported Medications Reported Meds & Active Scripts Active Metoprolol Succinate ER 24 HR (Metoprolol Succinate) 50 Mg Tab 50 Mg PO DAILY 30 Days Plavix (Clopidogrel Bisulfate) 75 Mg Tab 75 Mg PO DAILY 30 Days Aspirin Low Strength (Aspirin) 81 Mg Chew 81 Mg PO DAILY [address] (Duloxetine HCl) 60 Mg Capdr 60 Mg PO BID Allergies: Coded Allergies: No Known Allergies (Verified , 07/28/11) Active Ordered Medications Current Medications Medications (Trade) Dose Ordered Sig/Tati Route Start Time Stop Time Status Last Admin (NS Flush) 2 ml UNSCH PRN IV FLUSH 04/25/17 13:30 (NS Flush) 2 ml UNSCH PRN IV FLUSH 04/25/17 16:45 (NS Flush) 2 ml BID IV FLUSH 04/25/17 21:00 (Narcan Inj) 0.4 mg UNSCH PRN IV PUSH 04/25/17 16:45 (Mack 5-325 Mg) 1 tab Q4H PRN PO 04/25/17 16:45 Family History Daughter at age 40 due to colon cancer. Father age 65 secondary to heart attack. No other health issues identified Social History Previous smoker of 1 ppd from age [age]. Cocktail 3 times weekly Is still driving. . Physical Exam Vital Signs Vital Signs Date Time Temp Pulse Resp B/P (MAP) Pulse Ox O2 Delivery O2 Flow Rate FiO2 04/25/17 13:02 99 Room Air 04/25/17 13:02 16 100 Room Air 04/25/17 12:54 98.2 94 20 173/93 (119) 95 Physical Exam GENERAL: This is an obese, well-developed patient, in mild distress from back pain, lying on his right side due to pain SKIN: No rashes, ecchymoses or lesions. Cool and dry. HEAD: Atraumatic. Normocephalic. No temporal or scalp tenderness. EYES: No scleral icterus. No injection or drainage. ENT: Nose without bleeding or purulent drainage. Airway patent. NECK: Trachea midline. No JVD or lymphadenopathy. Supple and nontender. CARDIOVASCULAR: Regular rate and rhythm without murmurs, gallops, or rubs. RESPIRATORY: Clear to auscultation. Breath sounds equal bilaterally. No wheezes , rales, or rhonchi. GASTROINTESTINAL: Abdomen soft, non-tender, nondistended. No hepato-splenomegaly , or palpable masses. No guarding. MUSCULOSKELETAL: Extremities without clubbing, cyanosis, or edema. No calf tenderness. NEUROLOGICAL: Awake and alert. Motor and sensory grossly within normal limits. severe pain on palpation at lumbar region, no obvious injury or bruise, Normal speech. Laboratory Laboratory Tests Test 04/25/17 13:52 White Blood Count 9.9 Red Blood Count 4.50 Hemoglobin 14.5 Hematocrit 43.3 Mean Corpuscular Volume 96.2 Mean Corpuscular Hemoglobin 32.2 Mean Corpuscular Hemoglobin Concent 33.5 Red Cell Distribution Width 14.3 Platelet Count 327 Mean Platelet Volume 7.1 Neutrophils (%) (Auto) 58.9 Lymphocytes (%) (Auto) 24.3 Monocytes (%) (Auto) 9.9 Eosinophils (%) (Auto) 6.0 Basophils (%) (Auto) 0.9 Neutrophils # (Auto) 5.8 Lymphocytes # (Auto) 2.4 Monocytes # (Auto) 1.0 Eosinophils # (Auto) 0.6 Basophils # (Auto) 0.1 CBC Comment DIFF FINAL Differential Comment Blood Urea Nitrogen 17 Creatinine 1.47 Random Glucose 115 Total Protein 7.8 Albumin 3.5 Calcium Level 8.8 Alkaline Phosphatase 44 Aspartate Amino Transf (AST/SGOT) 25 Alanine Aminotransferase (ALT/SGPT) 33 Total Bilirubin 0.5 Sodium Level 134 Potassium Level 4.3 Chloride Level 100 Carbon Dioxide Level 26.4 Anion Gap 8 Estimat Glomerular Filtration Rate 46 Total Creatine Kinase 91 Result Diagram: 04/25/17 1352 04/25/17 1352 Imaging Last Impressions Head CT 04/25/17 1324 Signed Impressions: Service Date/Time: Tuesday, April 25, 2017 14:04 - CONCLUSION: Negative Samson Gonzales MD FACR Lumbar Spine X-Ray 04/25/17 0000 Signed Impressions: Service Date/Time: Tuesday, April 25, 2017 14:42 - CONCLUSION: Minimal loss of vertebral body height as above. Acute compression could be confirmed by MRI if the patient remains symptomatic Samson Gonzales MD FACR Cervical Spine CT 04/25/17 0000 Signed Impressions: Service Date/Time: Tuesday, April 25, 2017 14:04 - CONCLUSION: 1. No fracture or dislocation. 2. Multilevel degenerative changes. 3. Carotid artery atherosclerotic calcifications. Zeke James Jr., MD Capkyle VTE Risk Assessment Caprini VTE Risk Assessment: Mod/High Risk (score >= 2) Caprini Risk Assessment Model Point Value = 1 Point Value = 2 Point Value = 3 Point Value = 5 Age 41-60 Minor surgery BMI > 25 kg/m2 Swollen legs Varicose veins or History of unexplained or recurrent spontaneous Oral contraceptives or hormone replacement Sepsis (< 1 month) Serious lung disease, including pneumonia (< 1 month) Abnormal pulmonary function Acute myocardial infarction Congestive heart failure (< 1 month) History of inflammatory bowel disease Medical patient at bed rest Age 61-74 Arthroscopic surgery Major open surgery (> 45 min) Laparoscopic surgery (> 45 min) Malignancy Confined to bed (> 72 hours) Immobilizing plaster cast Central venous access Age >= 75 History of VTE Family history of VTE Factor V Leiden Prothrombin [id number] Lupus anticoagulant Anticardiolipin antibodies Elevated serum homocysteine Heparin-induced thrombocytopenia Other congenital or acquired thrombophilia Stroke (< 1 month) Elective arthroplasty Hip, pelvis, or leg fracture Acute spinal cord injury (< 1 month) Prophylaxis Regimen Total Risk Factor Score Risk Level Prophylaxis Regimen 0-1 Low Early ambulation 2 Moderate Order ONE of the following: *Sequential Compression Device (SCD) *Heparin 5000 units SQ BID 3-4 Higher Order ONE of the following medications: *Heparin 5000 units SQ TID *Enoxaparin/Lovenox 40 mg SQ daily (WT < 150 kg, CrCl > 30 mL/min) *Enoxaparin/Lovenox 30 mg SQ daily (WT < 150 kg, CrCl > 10-29 mL/min) *Enoxaparin/Lovenox 30 mg SQ BID (WT < 150 kg, CrCl > 30 mL/min) AND/OR *Sequential Compression Device (SCD) 5 or more Highest Order ONE of the following medications: *Heparin 5000 units SQ TID (Preferred with Epidurals) *Enoxaparin/Lovenox 40 mg SQ daily (WT < 150 kg, CrCl > 30 mL/min) *Enoxaparin/Lovenox 30 mg SQ daily (WT < 150 kg, CrCl > 10-29 mL/min) *Enoxaparin/Lovenox 30 mg SQ BID (WT < 150 kg, CrCl > 30 mL/min) AND *Sequential Compression Device (SCD) Assessment and Plan Assessment and Plan Mr. Stoner is 81 yo, with history of falls, vertigo, right and left carotid stenosis (with left endarterectomy), diabetic neuropathy, headaches for two months, and cardiac stent placement two months ago. Mr. Stoner is 81 yo, who fell at home on the evening of 04/24/17 at approximately 10:15 PM. He was able to make it bed and slept at home. He awoke with pain and called EMS this morning to come to [facility] for evaluation of his condition. Lumbar spine pain Not ambulating due to pain- baseline is that he ambulates without assistance, was still driving Fall -MRI of low back -PT evaluate and treat. -Pain management -Meds per med rec Palpitations -Continue home regimen of Plavix. Carotid artery blockage- s/p repair per patient -US of carotid artery. to r/o cause of his fall DM -Accu-checks q ac and hs -Sliding scale insulin Diet -Healthy heart. DVT prophyaxis will start lovenox if MRI is negative and does not require intervention This note was transcribed by [email or web address] [Javier Godinez ]. I, Dr. Chantal Verma personally performed the history, physical exam, and medical decision making; and confirmed the accuracy of the information in the transcribed note. Authenticated by Dr. Chantal Verma on 04/25/17 at 17:20. Discussed Condition With Pt and ED team. Javier Godinez Jr. Apr 25, 2017 17:34 Chantal Verma MD Apr 26, 2017 11:17
[2017-04-25 18:58] VITALS: BP 145/71; PULSE 85; RESP 19; O2SAT 97
--- NOTE | 2017-04-25 19:37 | RADRPT ---
EXAM DATE/TIME: 04/25/2017 18:35 [facility] COMPARISON: No previous studies available for comparison. INDICATIONS : Syncope. MEDICAL HISTORY : Stroke. Myocardial infarction. Congestive heart failure. Vertigo. Syncope. Anticoagulant therapy. Hyp ertension. Chest pain. Sleep apnea. Dyspnea. Hiatal hernia. Gastroesophageal reflux disease. Diabtes. SURGICAL HISTORY : Arthroscopy. CABG. Bilateral cataract surgery. Hernia repair. Hemorroidectomy. Knee surgery. ENCOUNTER: Initial ACUITY: 3 days PAIN SCORE: 7/10 LOCATION: Bilateral neck PEAK SYSTOLIC VELOCITIES (cm/sec): ICA/CCA RATIO: Right: 0.4 Left: 0.7 ICA: Right: 22.6 Left: 86.1 CCA: Right: 64.0 Left: 120.2 ECA: Right: 201.6 Left: 227.3 VERTEBRAL: Right: 28.1 antegrade Left: 50.3 antegrade Elevated flow velocities and ICA/CCA ratios have been found to correlate with increased degrees of vessel stenosis, calculated as percentage of diameter relative to a normal segment of distal ICA/CCA FINDINGS: RIGHT CAROTID: There is mild plaque in the right common carotid and carotid bulb region. Very diminished flow is see n in the right internal carotid artery. The right common carotid artery demonstrates a high resistanc e waveform concerning for more severe stenosis or even obstruction at the more distal internal caroti d artery. LEFT CAROTID: There is mild plaque throughout the left common carotid and carotid bulb region. No significant steno sis is visualized. The waveforms are within normal limits. VERTEBRAL ARTERIES: Antegrade flow is seen in both vertebral arteries. MISCELLANEOUS: None. CONCLUSION: Abnormal appearance with severely diminished flow in the right internal carotid artery and a high res istive pattern seen in the more proximal right common carotid artery suggestive of a severe stenosis or occlusion of the more distal internal carotid artery. Further evaluation with CTA or MRA would be recommended. Umair Lassiter MD on April 25, 2017 at 19:31 Board Certified Radiologist. This report was verified electronically.
[2017-04-25] MEDS: ACETAMINOPHEN/HYDROcodone 325 MG/5 MG TAB PO PRN (19:58)
[2017-04-25] MEDS: SODIUM CHLORIDE 0.9% FLUSH 10 ML FLUSH IV FLUSH SCH (19:58)
[2017-04-25 22:05] VITALS: BP 163/93; PULSE 80; RESP 20; TEMP 98.2; O2SAT 94
--- NOTE | 2017-04-25 22:42 | RADRPT ---
EXAM DATE/TIME: 04/25/2017 21:14 [facility] COMPARISON: SPINE LUMBAR LTD (AP & LAT), April 25, 2017, 14:42. INDICATIONS : Trauma. Lower back pain after fall. MEDICAL HISTORY : Hypertension. Diabetes mellitus type 2. Myocardial infarction. CHF. SURGICAL HISTORY : CABG Inguinal hernia repair. Hemorrhoidectomy. Right foot. Knee. ENCOUNTER: Subsequent ACUITY: 2 day PAIN SCORE: 7/10 LOCATION: Lower back. TECHNIQUE: Multiplanar multisequence MRI of the lumbar spine was performed without contrast. FINDINGS: The most caudal appearing lumbar vertebra is numbered as L5. VERTEBRAE: There is abnormal signal seen throughout the L1 vertebral body. This has a somewhat ho rizontal orientation consistent with an acute fracture. There is minimal concavity to the superior a nd inferior endplates at L1. Significant loss of height a L1 is not seen. There is some chronic con cavity of the superior endplate of L4. Edema is not seen at this region. CONUS: Normal level and configuration. OTHER: There is increased signal seen within the left psoas muscle likely reflecting some hemor rhage within this structure. The area of increased signal measures approximately 3 cm in diameter a nd extends from the L1 level down to the L3 level. T12-L1: The thecal sac has a normal diameter. No evidence of disc bulge or protrusion. The neural foramina are patent bilaterally. L1-L2: The thecal sac has a normal diameter. No evidence of disc bulge or protrusion. The neural f oramina are patent bilaterally. L2-L3: The thecal sac has a normal diameter. No evidence of disc bulge or protrusion. The neural f oramina are patent bilaterally. L3-L4: There is mild diffuse disc bulge. Significant spinal stenosis is not appreciated. The neural foramina are normal. There is mild facet hypertrophy. L4-L5: There is minimal diffuse disc bulge without significant spinal stenosis. There is mild facet hypertrophy. The neural foramina are grossly patent. L5-S1: The thecal sac has a normal diameter. No evidence of disc bulge or protrusion. The neural f oramina are patent bilaterally. CONCLUSION: 1. Abnormal signal seen throughout the L1 vertebral body consistent with horizontal fracturing throug h the vertebral body. Significant loss of height is not seen. 2. Chronic prominent concavity to the superior endplate of L4 without edema. 3. Mild disc bulges at the L3-L4 and L4-L5 levels without significant stenosis. 4. Mild area of hemorrhage seen in the left psoas muscle. Umair Lassiter MD on April 25, 2017 at 22:30 Board Certified Radiologist. This report was verified electronically.
[2017-04-25] MEDS: MORPHINE SULFATE 2 MG/ML INJ IV PUSH PRN (22:48)
[2017-04-26 00:05] VITALS: BP 130/74; PULSE 89; RESP 18; TEMP 97.6; O2SAT 93
[2017-04-26] MEDS: HEPARIN SODIUM - SQ 10,000 UNITS/ML VIAL SQ SCH ×2 (01:09→05:16)
[2017-04-26] MEDS: MORPHINE SULFATE 2 MG/ML INJ IV PUSH PRN ×2 (01:54→05:16)
[2017-04-26] MEDS: ACETAMINOPHEN/HYDROcodone 325 MG/5 MG TAB PO PRN (04:10)
[2017-04-26 04:39] VITALS: BP 154/72; PULSE 85; RESP 18; TEMP 98.2; O2SAT 94
[2017-04-26] MEDS ORDERED: ACETAMINOPHEN 325 MG TAB PO PRN ×2 (07:30)
[2017-04-26] MEDS ORDERED: BISACODYL 10 MG SUPP RECTAL PRN (07:30)
[2017-04-26] MEDS ORDERED: ACETAMINOPHEN/HYDROcodone 325 MG/5 MG TAB PO PRN (07:30)
[2017-04-26 07:40] VITALS: BP 161/80; PULSE 90; RESP 24; TEMP 97.6; O2SAT 94
[2017-04-26 08:34] LABS: AUTOMATED NEUTROPHIL # 5.4 TH/MM3 (1.8-7.7); BASOPHIL # 0.1 TH/MM3 (0-0.2); BASOPHIL % 0.6 % (0.0-2.0); EOSINOPHIL # 0.7 TH/MM3 (0-0.4); EOSINOPHIL % 7.9 % (0.0-4.0); HEMATOCRIT 43.1 % (39.0-51.0); HEMO FLAGS DIFF FINAL; LYMPH % 23.8 % (9.0-44.0); LYMPHOCYTE # 2.2 TH/MM3 (1.0-4.8); MEAN CELL VOLUME 96.4 FL (80.0-100.0); MEAN CORPUSCULAR HEMOGLOBIN 32.8 PG (27.0-34.0); MONO % 9.2 % (0.0-8.0); NEUT % 58.5 % (16.0-70.0); PLATELET COUNT 302 TH/MM3 (150-450); RED BLOOD COUNT 4.48 MIL/MM3 (4.50-5.90); WHITE BLOOD COUNT 9.3 TH/MM3 (4.0-11.0)
[2017-04-26 09:04] LABS: BICARBONATE 24.8 MEQ/L (21.0-32.0); POTASSIUM 3.7 MEQ/L (3.5-5.1)
[2017-04-26] MEDS: ACETAMINOPHEN/HYDROcodone 325 MG/7.5 MG TAB PO PRN (09:31)
[2017-04-26] MEDS: DOCUSATE SODIUM 50 MG/SENNA 8.6 MG TAB PO SCH ×2 (09:31→20:55)
[2017-04-26] MEDS: DULoxetine HCl DR 60 MG CAP PO SCH ×2 (09:32→20:56)
[2017-04-26] MEDS: METOPROLOL SUCCINATE 50 MG EXTENDED RELEASE TAB PO SCH (09:32)
[2017-04-26] MEDS: SODIUM CHLORIDE 0.9% FLUSH 10 ML FLUSH IV FLUSH SCH ×2 (09:32→20:58)
[2017-04-26 11:22] VITALS: BP 173/93; PULSE 86; RESP 24; TEMP 97.8; O2SAT 93
[2017-04-26] MEDS: MORPHINE SULFATE 4 MG/ML INJ IV PUSH PRN (12:24)
--- NOTE | 2017-04-26 13:24 | HHI.PR ---
Subjective Remarks Follow-up low back pain. Patient reports of low back pain relieved with Lortab. No incontinence. Discussed with patient's son-in-law. Discussed with RN Objective Vitals Vital Signs Date Time Temp Pulse Resp B/P (MAP) Pulse Ox O2 Delivery O2 Flow Rate FiO2 04/26/17 11:22 97.8 86 24 173/93 (119) 93 04/26/17 10:31 20 04/26/17 07:40 97.6 90 24 161/80 (107) 94 04/26/17 04:39 98.2 85 18 154/72 (99) 94 04/26/17 00:05 97.6 89 18 130/74 (92) 93 04/25/17 22:05 98.2 80 20 163/93 (116) 94 04/25/17 18:58 85 19 145/71 (95) 97 Room Air I/O 04/25/17 04/25/17 04/25/17 04/26/17 04/26/17 04/26/17 07:00 15:00 23:00 07:00 15:00 23:00 Output Total 900 ml Balance -900 ml Output Urine Total 900 ml Result Diagram: 04/26/17 0751 04/26/17 0751 Imaging Last Impressions Head CT 04/25/17 1324 Signed Impressions: Service Date/Time: Tuesday, April 25, 2017 14:04 - CONCLUSION: Negative Samson Gonzales MD FACR Lumbar Spine X-Ray 04/25/17 0000 Signed Impressions: Service Date/Time: Tuesday, April 25, 2017 14:42 - CONCLUSION: Minimal loss of vertebral body height as above. Acute compression could be confirmed by MRI if the patient remains symptomatic Samson Gonzales MD FACR Lumbar Spine MRI 04/25/17 0000 Signed Impressions: Service Date/Time: Tuesday, April 25, 2017 21:14 - CONCLUSION: 1. Abnormal signal seen throughout the L1 vertebral body consistent with horizontal fracturing through the vertebral body. Significant loss of height is not seen. 2. Chronic prominent concavity to the superior endplate of L4 without edema. 3. Mild disc bulges at the L3-L4 and L4-L5 levels without significant stenosis. 4. Mild area of hemorrhage seen in the left psoas muscle. Umair Lassiter MD Cervical Spine CT 04/25/17 0000 Signed Impressions: Service Date/Time: Tuesday, April 25, 2017 14:04 - CONCLUSION: 1. No fracture or dislocation. 2. Multilevel degenerative changes. 3. Carotid artery atherosclerotic calcifications. Zeke James Jr., MD Carotid Artery Ultrasound 04/25/17 0000 Signed Impressions: Service Date/Time: Tuesday, April 25, 2017 18:35 - CONCLUSION: Abnormal appearance with severely diminished flow in the right internal carotid artery and a high resistive pattern seen in the more proximal right common carotid artery suggestive of a severe stenosis or occlusion of the more distal internal carotid artery. Further evaluation with CTA or MRA would be recommended. Umair Lassiter MD Objective Remarks GENERAL: This is an obese, well-developed patient, in mild distress from back pain, lying on his back SKIN: No rashes, ecchymoses or lesions. Cool and dry. HEAD: Atraumatic. Normocephalic. No temporal or scalp tenderness. EYES: No scleral icterus. No injection or drainage. ENT: Nose without bleeding or purulent drainage. Airway patent. NECK: Trachea midline. No JVD or lymphadenopathy. Supple and nontender. CARDIOVASCULAR: Regular rate and rhythm without murmurs, gallops, or rubs. RESPIRATORY: Clear to auscultation. Breath sounds equal bilaterally. No wheezes , rales, or rhonchi. GASTROINTESTINAL: Abdomen soft, non-tender, nondistended. No guarding. MUSCULOSKELETAL: Extremities without clubbing, cyanosis, or edema. No calf tenderness. A/P Problem List: (1) Fall ICD Code: W19.XXXA - Unspecified fall, initial encounter Status: Acute Assessment and Plan Mr. Stoner is 81 yo, with history of falls, vertigo, right and left carotid stenosis (with left endarterectomy), diabetic neuropathy, headaches for two months, and cardiac stent placement two months ago. He fell at home on the evening of 04/24/17 at approximately 10:15 PM. He was able to make it bed and slept at home. He awoke with pain and called EMS this morning to [place] [facility] [place] of his condition. Lumbar spine pain secondary to L1 fracture Not ambulating due to pain- baseline is that he ambulates without assistance, was still driving Mild psoas muscle hemorrhage Fall -Pain management with Lortab and IV morphine -PT evaluate and treat. TLSO brace ordered -Neurosurgery consulted -Meds per med rec Left Carotid artery blockage- s/p repair per patient -History of right carotid total occlusion DM -Accu-checks q ac and hs -Sliding scale insulin Chronic medical conditions of coronary artery disease status post stent in January 2017, A. fib, hypertension and congestive heart failure ejection fraction of 20% and chronic kidney disease stage II to 3. Stable continue outpatient medications RN to confirm. Consult patient's hospital food service worker in anticipation for possible neurosurgical procedure Diet -Healthy heart. DVT prophyaxis will restart Eliquis when cleared by neurosurgery Discharge Planning Discharge when cleared by neurosurgery Problem Qualifiers (1) Fall: Qualified Codes: W19.XXXA - Unspecified fall, initial encounter Chadwick Montoya MD Apr 26, 2017 13:24
--- NOTE | 2017-04-26 13:39 | MB ---
cc: LEXX RAND M.D., ROHIT K. M.D. DATE OF CONSULTATION 04/26/2017 REASON FOR CONSULTATION Intractable low back pain. PRESENT ILLNESS An 81-year-old gentleman who fell off his recliner two days ago with subsequent severe low back pain. He has chronic numbness in his lower extremities from diabetic neuropathy which is not new. Denies any incontinence. He just states that moving or attempting to sit up or walk has been difficult because of worsening pain with activity. He presented to the emergency room yesterday and x-ray of the lumbar spine obtained revealed L1 and L4 vertebral body compression fractures. Subsequent MRI scan of lumbar spine was also obtained which reveals a more acute L1 mild vertebral body compression fracture without any retropulsion and a chronic L4 vertebral body mild compression fracture. He relates that he had coronary stents placed a couple months ago and is on chronic antiplatelet and anticoagulation therapy followed by Dr. Rand from cardiology. He also has a chronic right carotid artery occlusion and had left carotid endarterectomy by Dr. Aldrich in the past. Carotid ultrasound reveals occlusion of the right carotid artery and head CT scan is negative with cervical spine CT scan revealing some degenerate changes and carotid atherosclerotic calcifications. PAST MEDICAL HISTORY 1. Chronic right carotid artery occlusion. 2. History of left carotid enterectomy. 3. Diabetes mellitus. 4. Diabetic neuropathy in his feet. 5. Coronary artery disease status post coronary stent placement 2 months ago. 6. Vertigo. 7. Headaches. 8. Atrial fibrillation. 9. Hypertension. 10. Congestive heart failure. 11. Sleep apnea. 12. Gastroesophageal reflux. 13. Hiatal hernia. 14. Chronic kidney disease. 15. History of stroke. 16. Gout. 17. Coronary artery bypass grafting in 1992. 18. Multiple abdominal surgeries. 19. Knee surgery . MEDICATIONS 1. Metoprolol 50 mg daily. 1. Cymbalta 60 mg b.i.d. 2. Plavix 75 mg daily. 3. Aspirin 81 mg daily. 4. He also relates he takes Xarelto. LABORATORY FINDINGS White blood cell count 9.3, hemoglobin 14.7, platelet count 302. Sodium 134, potassium 3.7, BUN 16, creatinine 1.39, glucose 124. REVIEW OF SYSTEMS His review of systems is positive for vertigo, epistaxis, sleep apnea, shortness of breath, numbness in his feet, low back pain. Denies any chest pain and denies any abdominal pain. Denies any incontinence. Relates difficulty walking because of pain when he tries to sit up. Denies any loss of consciousness with this fall. He does bleed and bruise easily related to chronic antiplatelet/anticoagulant therapy. Otherwise review of systems is negative. FAMILY HISTORY Significant for myocardial infarction in father and colon cancer in his daughter. SOCIAL HISTORY He admits to having a cocktail every other day. He is and quit smoking 40 years ago. PHYSICAL EXAMINATION VITAL SIGNS: Temperature 97.8, pulse is 86, respiratory rate 24, blood pressure 173/93, oxygen saturation 93% on room air. HEAD: No De Leon's or raccoon's sign. NECK: Supple. CHEST: Clear bilaterally. HEART: Regular rate. Normal S1 and S2. ABDOMEN: Soft, nontender. Positive bowel sounds. No guarding or rigidity. EXTREMITIES: No cyanosis or edema. NEUROLOGIC: He is awake, alert. Cranial nerves are grossly intact. Motor strength is 5/5 in the upper and lower extremities. Negative Babinski. Appreciates light touch sensation bilaterally. Speech is fluent. IMPRESSION 1. Acute mild L1 vertebral body compression fracture without retropulsion. 2. Chronic L4 vertebral body compression fracture which is healed. 3. Extensive medical comorbidities including chronic anticoagulation and antiplatelet therapy with a history of coronary artery disease, congestive heart failure, atrial fibrillation with recent stenting. PLAN 1. I have recommended pain control as well as uses of TLSO brace for the L1 vertebral body fracture. 2. Given his recent coronary stent placement with anticoagulant and antiplatelet therapy he would not be a good candidate for a kyphoplasty since antiplatelet and anticoagulant therapy will need to be held perioperatively and the risks are significant associated with this. I have discussed with the patient who understands. 3. We will consult physical therapy to assist in his ambulation and appropriate brace donning. MD ISABEL Penn/MANUEL /1:05 PM /1:20 PM
[2017-04-26] MEDS ORDERED: CHOLECALCIFEROL (VIT D3) 1000 UNIT TAB PO ONE (13:45)
[2017-04-26 16:19] VITALS: BP 192/89; PULSE 81; RESP 24; TEMP 98.5; O2SAT 92
[2017-04-26] MEDS: ONDANSETRON HCL 4 MG/2 ML VIAL IVP PRN (16:52)
[2017-04-26] MEDS ORDERED: APIX2.5T PO (17:52)
[2017-04-26] MEDS ORDERED: AMLO10TA2 PO (17:59)
--- NOTE | 2017-04-26 18:19 | MB ---
cc: LEXX RAND DATE OF CONSULTATION 04/26/17 REASON FOR CONSULTATION History of coronary artery disease, graft stenting. HISTORY OF PRESENT ILLNESS The patient is an 81-year-old white male with a history of multiple medical problems including chronic atrial fibrillation, mild ischemic cardiomyopathy, coronary artery disease, COPD, diabetes, hypertension who presented to the hospital with severe lower mid back pain. A couple of days ago, he fell from his recliner with subsequent development of severe low back pain. The patient otherwise has felt well. He denies any recent angina, shortness of breath, dizziness, syncope, near-syncope, palpitations, pedal edema, paroxysmal nocturnal dyspnea. PAST MEDICAL HISTORY 1. Sleep apnea 2. Chronic atrial fibrillation diagnosed October 2014. 3. Mild ischemic cardiomyopathy with ejection fraction of approximately 45-50% by echo 01/07/2017. 4. Carotid artery disease with history of left carotid endarterectomy and a known chronically occluded right internal carotid artery. 5. COPD. 6. Coronary artery disease status post bypass surgery [address] [facility]. His last heart catheterization was 01/10/2017 showing totally occluded left main, totally occluded proximal right coronary artery, 75% ostial stenosis in the vein graft to the obtuse marginal which was stented with a 3.5-mm Resolute stent, patent left internal mammary artery to the LAD with good retrograde flow into the diagonal, totally occluded vein graft to the diagonal, fair right coronary homo collaterals and fair [id number] collaterals. 7. Diabetes 8. Gastroesophageal reflux disease. 9. Hyperlipidemia. 10. Hypertension. MEDICATIONS Cardiac medications at home 1. Amlodipine 10 mg daily. 2. Aspirin 81 mg daily. 3. Eliquis 2.5 mg b.i.d. 4. Plavix 75 mg daily. 5. Simvastatin 20 mg q.h.s. 6. Lisinopril 40 mg daily. 7. Metoprolol succinate 50 mg daily. ALLERGIES NO KNOWN DRUG ALLERGIES. FAMILY HISTORY Noncontributory. SOCIAL HISTORY The patient is a former smoker. There is no history of alcohol abuse. REVIEW OF SYSTEMS As in the history of present illness otherwise negative or noncontributory. Also denies headache, visual changes, abdominal pain, melena, dyspepsia, bright red blood per rectum, cough, fevers. PHYSICAL EXAMINATION VITAL SIGNS: Blood pressure 154/72 with a pulse of 85, respirations 18. GENERAL: In general he is a well-developed, well-nourished white male in no acute distress HEENT: Jugular venous pressure is normal. Carotid pulses are 2+ bilaterally and without bruits. CHEST: Unlabored respiratory effort with clear lung mendes. CARDIAC: He has irregularly irregular rhythm without S3 or murmur. ABDOMEN: He has a soft, nontender abdomen. Bowel sounds are present. There is no definite hepatosplenomegaly. EXTREMITIES: No clubbing, cyanosis or edema. LABORATORY DATA WBC 9.3, hemoglobin 14.7, platelets 302, potassium 3.7, BUN 16, creatinine 1.39, CK 91. IMPRESSION Overall stable cardiac status in this 81-year-old white male with a history of multiple medical problems including coronary artery disease, COPD, mild ischemic cardiomyopathy, chronic atrial fibrillation, diabetes, sleep apnea. The patient has had no recent angina symptoms. There is no evidence for congestive heart failure. His atrial fibrillation has been chronic and he has been maintained on reduced dose Eliquis while on Plavix for his history of coronary stenting. RECOMMENDATIONS 1. Would avoid stopping his Plavix and aspirin for another 5-6 months as there will be a risk of stent thrombosis, myocardial infarction and . 2. Continue his Eliquis given his increased risk of thromboembolic phenomena 3. Continue his usual home cardiac medications as listed above. 4. We will follow up as needed. MD ZACHERY Coto/ /5:40 PM /5:56 PM DINESH
[2017-04-26 20:11] VITALS: BP 174/90; PULSE 90; RESP 18; TEMP 97; O2SAT 94
[2017-04-26] MEDS: ASPIRIN EC 81 MG TABEC PO SCH (20:56)
[2017-04-26] MEDS: APIXABAN 2.5 MG TABLET PO SCH (20:56)
[2017-04-26] MEDS: CLOPIDOGREL 75 MG TAB PO SCH (20:57)
[2017-04-27 00:11] VITALS: BP 168/82; PULSE 89; RESP 18; TEMP 98.6; O2SAT 94
[2017-04-27] MEDS: ACETAMINOPHEN/HYDROcodone 325 MG/7.5 MG TAB PO PRN ×4 (01:32→21:17)
[2017-04-27 04:12] VITALS: BP 125/77; PULSE 80; RESP 18; TEMP 97.7; O2SAT 94
[2017-04-27 08:00] VITALS: BP 135/81; PULSE 72; RESP 18; TEMP 97.4; O2SAT 92
[2017-04-27 08:59] LABS: AUTOMATED NEUTROPHIL # 5.5 TH/MM3 (1.8-7.7); BASOPHIL # 0.1 TH/MM3 (0-0.2); BASOPHIL % 0.7 % (0.0-2.0); EOSINOPHIL # 0.5 TH/MM3 (0-0.4); EOSINOPHIL % 5.5 % (0.0-4.0); HEMATOCRIT 45.5 % (39.0-51.0); HEMO FLAGS DIFF FINAL; LYMPH % 22.2 % (9.0-44.0); MEAN CELL VOLUME 96.6 FL (80.0-100.0); MEAN CORPUSCULAR HEMOGLOBIN 33.2 PG (27.0-34.0); MEAN CORPUSCULAR HGB CONC 34.3 % (32.0-36.0); MONO % 10.3 % (0.0-8.0); NEUT % 61.3 % (16.0-70.0); PLATELET COUNT 290 TH/MM3 (150-450); RED BLOOD COUNT 4.71 MIL/MM3 (4.50-5.90); RED CELL DISTRIBUTION WIDTH 14.1 % (11.6-17.2)
[2017-04-27] MEDS: SODIUM CHLORIDE 0.9% FLUSH 10 ML FLUSH IV FLUSH SCH ×2 (09:00→21:16)
[2017-04-27] MEDS: LACTULOSE SYRUP 20 GM/30 ML CUP PO PRN (09:03)
[2017-04-27] MEDS: DULoxetine HCl DR 60 MG CAP PO SCH ×2 (09:03→21:16)
[2017-04-27] MEDS: CHOLECALCIFEROL (VIT D3) 1000 UNIT TAB PO SCH (09:03)
[2017-04-27] MEDS: METOPROLOL SUCCINATE 50 MG EXTENDED RELEASE TAB PO SCH (09:04)
[2017-04-27] MEDS: ASPIRIN EC 81 MG TABEC PO SCH (09:04)
[2017-04-27] MEDS: APIXABAN 2.5 MG TABLET PO SCH ×2 (09:04→21:17)
[2017-04-27] MEDS: CLOPIDOGREL 75 MG TAB PO SCH (09:04)
[2017-04-27] MEDS: LISINOPRIL 20 MG TAB PO SCH (09:04)
[2017-04-27] MEDS: DOCUSATE SODIUM 50 MG/SENNA 8.6 MG TAB PO SCH ×2 (09:04→21:17)
[2017-04-27 09:10] LABS: BICARBONATE 27.3 MEQ/L (21.0-32.0); MAGNESIUM 2.5 MG/DL (1.5-2.5); POTASSIUM 3.9 MEQ/L (3.5-5.1)
--- NOTE | 2017-04-27 09:59 | HHI.NSPN ---
(Warren Garcia) History Chief Complaint: Low back pain. (Warren Garcia) Interval History An 81-year-old gentleman who fell off his recliner two days ago with subsequent severe low back pain. He has chronic numbness in his lower extremities from diabetic neuropathy which is not new. Denies any incontinence. He just states that moving or attempting to sit up or walk has been difficult because of worsening pain with activity. He presented to the emergency room yesterday and x-ray of the lumbar spine obtained revealed L1 and L4 vertebral body compression fractures. Subsequent MRI scan of lumbar spine was also obtained which reveals a more acute L1 mild vertebral body compression fracture without any retropulsion and a chronic L4 vertebral body mild compression fracture. He relates that he had coronary stents placed a couple months ago and is on chronic antiplatelet and anticoagulation therapy followed by Dr. Fletcher from cardiology. He also has a chronic right carotid artery occlusion and had left carotid endarterectomy by Dr. Aldrich in the past. Carotid ultrasound reveals occlusion of the right carotid artery and head CT scan is negative with cervical spine CT scan revealing some degenerate changes and carotid atherosclerotic calcifications. 04/27/17: Pt complains of low back pain. No radiculopathy in LEs. Paresthesias in LEs below his knees from his neuropathy. (Warren Garcia) Review of Systems General: Negative for: fever, chills, insomnia Respiratory: Negative for: shortness of breath, cough, sputum Cardiovascular: Negative for: chest pain Gastrointestinal: Positive for: constipation, Negative for: nausea, vomitting, diarrhea (Warren Garcia) Exam Results Vital Signs Date Time Temp Pulse Resp B/P (MAP) Pulse Ox O2 Delivery O2 Flow Rate FiO2 04/27/17 08:00 97.4 72 18 135/81 (99) 92 04/26/17 18:20 Room Air Intake and Output 04/27/17 04/27/17 04/28/17 08:00 16:00 00:00 Intake Total 240 ml Balance 240 ml (Warren Garcia) Physical Examination General: Pt laying in bed complaining of low back pain. Eyes: Pupils equal. Sclera anicteric Resp: CTA bilaterally Heart: Irregular. no murmurs. Abd: Some distention. Diminished bs. Skin: No cyanosis or erythema. Muscle: Moves LEs with good strength Neuro: Pt awake and alert. Follows commands. Speech clear and appropriate. Pt with numbness in LEs below his knees from his neuropathy. (Warren Garcia) Lab, Micro, Other Results Last Impressions Head CT 04/25/17 1324 Signed Impressions: Service Date/Time: Tuesday, April 25, 2017 14:04 - CONCLUSION: Negative Samson Gonzales MD FACR Lumbar Spine X-Ray 04/25/17 0000 Signed Impressions: Service Date/Time: Tuesday, April 25, 2017 14:42 - CONCLUSION: Minimal loss of vertebral body height as above. Acute compression could be confirmed by MRI if the patient remains symptomatic Samson Gonzales MD FACR Lumbar Spine MRI 04/25/17 0000 Signed Impressions: Service Date/Time: Tuesday, April 25, 2017 21:14 - CONCLUSION: 1. Abnormal signal seen throughout the L1 vertebral body consistent with horizontal fracturing through the vertebral body. Significant loss of height is not seen. 2. Chronic prominent concavity to the superior endplate of L4 without edema. 3. Mild disc bulges at the L3-L4 and L4-L5 levels without significant stenosis. 4. Mild area of hemorrhage seen in the left psoas muscle. Umair Lassiter MD Cervical Spine CT 04/25/17 0000 Signed Impressions: Service Date/Time: Tuesday, April 25, 2017 14:04 - CONCLUSION: 1. No fracture or dislocation. 2. Multilevel degenerative changes. 3. Carotid artery atherosclerotic calcifications. Zeke James Jr., MD Carotid Artery Ultrasound 04/25/17 0000 Signed Impressions: Service Date/Time: Tuesday, April 25, 2017 18:35 - CONCLUSION: Abnormal appearance with severely diminished flow in the right internal carotid artery and a high resistive pattern seen in the more proximal right common carotid artery suggestive of a severe stenosis or occlusion of the more distal internal carotid artery. Further evaluation with CTA or MRA would be recommended. Umair Lassiter MD Laboratory Tests Test 04/27/17 07:07 White Blood Count 9.0 TH/MM3 Red Blood Count 4.71 MIL/MM3 Hemoglobin 15.6 GM/DL Hematocrit 45.5 % Mean Corpuscular Volume 96.6 FL Mean Corpuscular Hemoglobin 33.2 PG Mean Corpuscular Hemoglobin Concent 34.3 % Red Cell Distribution Width 14.1 % Platelet Count 290 TH/MM3 Mean Platelet Volume 7.4 FL Neutrophils (%) (Auto) 61.3 % Lymphocytes (%) (Auto) 22.2 % Monocytes (%) (Auto) 10.3 % Eosinophils (%) (Auto) 5.5 % Basophils (%) (Auto) 0.7 % Neutrophils # (Auto) 5.5 TH/MM3 Lymphocytes # (Auto) 2.0 TH/MM3 Monocytes # (Auto) 0.9 TH/MM3 Eosinophils # (Auto) 0.5 TH/MM3 Basophils # (Auto) 0.1 TH/MM3 CBC Comment DIFF FINAL Differential Comment Blood Urea Nitrogen 20 MG/DL Creatinine 1.43 MG/DL Random Glucose 105 MG/DL Calcium Level 9.3 MG/DL Magnesium Level 2.5 MG/DL Sodium Level 133 MEQ/L Potassium Level 3.9 MEQ/L Chloride Level 98 MEQ/L Carbon Dioxide Level 27.3 MEQ/L Anion Gap 8 MEQ/L Estimat Glomerular Filtration Rate 48 ML/MIN (Warren Garcia) Medical Decision Making Impression and Plan A: 81 y/o M with 1. Acute mild L1 vertebral body compression fracture without retropulsion. 2. Chronic L4 vertebral body compression fracture which is healed. 3. Extensive medical comorbidities including chronic anticoagulation and antiplatelet therapy with a history of coronary artery disease, congestive heart failure, atrial fibrillation with recent stenting. P: Pain control TLSO brace for his L1 fx. Pt is not a surgical candidate given his recent stenting. Stool softeners and prn laxatives for his constipation. (Warren Garcia) Attending Statement The exam, history, and the medical decision-making described in the above note were completed with the assistance of the mid-level provider. I reviewed and agree with the findings presented. I attest that I had a [id number] encounter with the patient on the same day, and personally performed and documented my assessment and findings in the medical record. New Car Inspector has recommended that his anticoagulation and antiplatelet therapy be continued given the high risk for cardiac complications and . Not much to add from a neurosurgical standpoint. (Nicola Pavon MD) Warren Garcia Apr 27, 2017 09:59 Nicola Pavon MD Apr 27, 2017 14:47
[2017-04-27] MEDS: SODIUM CHLORIDE 0.9% FLUSH 10 ML FLUSH IV FLUSH PRN (10:09)
[2017-04-27] MEDS: MORPHINE SULFATE 4 MG/ML INJ IV PUSH PRN ×2 (10:09→16:49)
[2017-04-27 12:00] VITALS: BP 121/67; PULSE 74; RESP 18; TEMP 97.2; O2SAT 92
[2017-04-27 16:00] VITALS: BP 119/70; PULSE 69; RESP 18; TEMP 96.3; O2SAT 91
[2017-04-27 19:00] VITALS: BP 106/57; PULSE 76; RESP 17; TEMP 96.9; O2SAT 98
[2017-04-27] MEDS: SENNOSIDES 8.6 MG TAB PO PRN (21:16)
--- NOTE | 2017-04-27 22:26 | HHI.PR ---
Subjective Remarks Patient was seen in the early afternoon. Patient is currently doing well. He is able to ambulate some with assistance. No fever, chills. He would like to go home tomorrow morning. Objective Vitals Vital Signs Date Time Temp Pulse Resp B/P (MAP) Pulse Ox O2 Delivery O2 Flow Rate FiO2 04/27/17 19:00 96.9 76 17 106/57 (73) 98 04/27/17 16:00 96.3 69 18 119/70 (86) 91 04/27/17 12:00 97.2 74 18 121/67 (85) 92 04/27/17 08:00 97.4 72 18 135/81 (99) 92 04/27/17 04:12 97.7 80 18 125/77 (93) 94 04/27/17 00:11 98.6 89 18 168/82 (110) 94 I/O 04/26/17 04/26/17 04/26/17 04/27/17 04/27/17 04/27/17 07:00 15:00 23:00 07:00 15:00 23:00 Intake Total 240 ml 240 ml 480 ml Output Total 900 ml 650 ml Balance -900 ml -410 ml 240 ml 480 ml Intake Oral 240 ml 240 ml 480 ml Output Urine Total 900 ml 650 ml # Voids 2 2 # Bowel Movements 0 0 0 Result Diagram: 04/27/17 0707 04/27/17 0707 Imaging Last Impressions Head CT 04/25/17 1324 Signed Impressions: Service Date/Time: Tuesday, April 25, 2017 14:04 - CONCLUSION: Negative Samson Gonzales MD FACR Lumbar Spine X-Ray 04/25/17 0000 Signed Impressions: Service Date/Time: Tuesday, April 25, 2017 14:42 - CONCLUSION: Minimal loss of vertebral body height as above. Acute compression could be confirmed by MRI if the patient remains symptomatic Samson Gonzales MD FACR Lumbar Spine MRI 04/25/17 0000 Signed Impressions: Service Date/Time: Tuesday, April 25, 2017 21:14 - CONCLUSION: 1. Abnormal signal seen throughout the L1 vertebral body consistent with horizontal fracturing through the vertebral body. Significant loss of height is not seen. 2. Chronic prominent concavity to the superior endplate of L4 without edema. 3. Mild disc bulges at the L3-L4 and L4-L5 levels without significant stenosis. 4. Mild area of hemorrhage seen in the left psoas muscle. Umair Lassiter MD Cervical Spine CT 04/25/17 0000 Signed Impressions: Service Date/Time: Tuesday, April 25, 2017 14:04 - CONCLUSION: 1. No fracture or dislocation. 2. Multilevel degenerative changes. 3. Carotid artery atherosclerotic calcifications. Zeke James Jr., MD Carotid Artery Ultrasound 04/25/17 0000 Signed Impressions: Service Date/Time: Tuesday, April 25, 2017 18:35 - CONCLUSION: Abnormal appearance with severely diminished flow in the right internal carotid artery and a high resistive pattern seen in the more proximal right common carotid artery suggestive of a severe stenosis or occlusion of the more distal internal carotid artery. Further evaluation with CTA or MRA would be recommended. Umair Lassiter MD Objective Remarks GENERAL: Alert, Oriented x 3, NAD. SKIN: Warm and dry. HEAD: Normocephalic. EYES: No scleral icterus. No injection or drainage. NECK: Supple, trachea midline. No JVD or lymphadenopathy. CARDIOVASCULAR: Regular rate and rhythm without murmurs, gallops, or rubs. RESPIRATORY: Breath sounds equal bilaterally. No accessory muscle use. GASTROINTESTINAL: Abdomen soft, non-tender, nondistended. MUSCULOSKELETAL: No cyanosis, or edema. BACK: Nontender without obvious deformity. No CVA tenderness. A/P Problem List: (1) Fall ICD Code: W19.XXXA - Unspecified fall, initial encounter Status: Acute Assessment and Plan Mr. Stoner is 81 yo, with history of falls, vertigo, right and left carotid stenosis (with left endarterectomy), diabetic neuropathy, headaches for two months, and cardiac stent placement two months ago. He fell at home on the evening of 04/24/17 at approximately 10:15 PM. He was able to make it bed and slept at home. He awoke with pain and called EMS this morning to come [place] [facility] [place] of [place]. - Mild L1 compression fracture without retropulsion. - Chronic L4 compression fracture. - Continue [place] PRN and Morphine for breakthrough. - Per neurosurgery recommendations, continue TLSO for L1 fracture. - Not a surgical candidate due to cardiac stent placement in 12/2016 and current use of Apixaban, Aspirin, Plavix. CAD - s/p cath, stent placement in 12/2016 Chronic Atrial fibrillation - Continue Aspirin, Plavix, Apixaban - Continue Metoprolol succinate 50mg Qday. Left Carotid artery blockage- s/p repair per patient -History of right carotid total occlusion Full code. Apixaban. Discharge plan: Likely d/c home tomorrow morning. Problem Qualifiers (1) Fall: Qualified Codes: W19.XXXA - Unspecified fall, initial encounter Moriah Hale DO Apr 27, 2017 22:26
[2017-04-28] VITALS: BP 113/60; PULSE 80; RESP 16; TEMP 97.6; O2SAT 97
[2017-04-28] MEDS: ACETAMINOPHEN/HYDROcodone 325 MG/7.5 MG TAB PO PRN ×4 (03:05→20:35)
[2017-04-28 04:00] VITALS: BP 96/66; PULSE 57; RESP 15; TEMP 97; O2SAT 97
[2017-04-28 08:00] VITALS: BP 138/67; PULSE 69; RESP 18; TEMP 97.1; O2SAT 93
[2017-04-28] MEDS: CHOLECALCIFEROL (VIT D3) 1000 UNIT TAB PO SCH (08:15)
[2017-04-28] MEDS: SENNOSIDES 8.6 MG TAB PO PRN (08:15)
[2017-04-28] MEDS: DULoxetine HCl DR 60 MG CAP PO SCH ×2 (08:15→20:34)
[2017-04-28] MEDS: CLOPIDOGREL 75 MG TAB PO SCH (08:15)
[2017-04-28] MEDS: MORPHINE SULFATE 4 MG/ML INJ IV PUSH PRN ×2 (08:15→22:23)
[2017-04-28] MEDS: DOCUSATE SODIUM 50 MG/SENNA 8.6 MG TAB PO SCH ×2 (08:15→20:34)
[2017-04-28] MEDS: METOPROLOL SUCCINATE 50 MG EXTENDED RELEASE TAB PO SCH (08:15)
[2017-04-28] MEDS: ASPIRIN EC 81 MG TABEC PO SCH (08:16)
[2017-04-28] MEDS: APIXABAN 2.5 MG TABLET PO SCH ×2 (08:16→20:34)
[2017-04-28] MEDS: LISINOPRIL 20 MG TAB PO SCH (08:16)
[2017-04-28] MEDS: SODIUM CHLORIDE 0.9% FLUSH 10 ML FLUSH IV FLUSH SCH ×2 (08:16→20:37)
[2017-04-28] MEDS: ONDANSETRON HCL 4 MG/2 ML VIAL IVP PRN (11:50)
[2017-04-28 12:00] VITALS: BP 98/54; PULSE 84; RESP 18; TEMP 96.5; O2SAT 94
[2017-04-28] MEDS ORDERED: WALKER WHEELS/F1 MIS (12:35)
[2017-04-28] MEDS ORDERED: HYDR-3516 PO (12:35)
[2017-04-28] MEDS ORDERED: LISI10TA3 PO (12:35)
[2017-04-28] MEDS ORDERED: AMLO5TAB2 PO (12:36)
[2017-04-28] MEDS ORDERED: CYCL7.5T33 PO (13:13)
[2017-04-28] MEDS ORDERED: CYCLOBENZAPRINE HCL 10 MG TAB PO PRN (13:15)
[2017-04-28] MEDS ORDERED: MAGNESIUM HYDROXIDE SUSP 30 ML CUP PO PRN (13:30)
[2017-04-28] MEDS ORDERED: SOD PHOSPHATE/SOD BIPHOSPHATE (ADULT) ENEMA 133ML RECTAL PRN (13:30)
[2017-04-28] MEDS: LACTULOSE SYRUP 20 GM/30 ML CUP PO PRN (14:28)
[2017-04-28] MEDS ORDERED: METOCLOPRAMIDE HCL 10 MG/2 ML VIAL IV PUSH PRN (15:30)
--- NOTE | 2017-04-28 15:31 | HHI.PR ---
Subjective Remarks Follow-up for L1 compression fracture. Patient is currently doing well. Earlier today he stood up and his blood pressure dropped. Blood pressure improved after he went to bed. No chest pain, shortness of breath, fever or chills. Daughter is at bedside. Patient has not had any bowel movement yet. Objective Vitals Vital Signs Date Time Temp Pulse Resp B/P (MAP) Pulse Ox O2 Delivery O2 Flow Rate FiO2 04/28/17 08:00 97.1 69 18 138/67 (90) 93 04/28/17 04:00 97.0 57 15 96/66 (76) 97 04/28/17 00:00 97.6 80 16 113/60 (77) 97 04/27/17 19:00 96.9 76 17 106/57 (73) 98 04/27/17 16:00 96.3 69 18 119/70 (86) 91 I/O 04/27/17 04/27/17 04/27/17 04/28/17 04/28/17 04/28/17 07:00 15:00 23:00 07:00 15:00 23:00 Intake Total 240 ml 480 ml 480 ml 480 ml Output Total 700 ml Balance 240 ml 480 ml 480 ml -220 ml Intake Oral 240 ml 480 ml 480 ml 480 ml Output Urine Total 700 ml # Voids 2 2 2 # Bowel Movements 0 0 0 0 Result Diagram: 04/27/17 0707 04/27/17 0707 Imaging Last Impressions Head CT 04/25/17 1324 Signed Impressions: Service Date/Time: Tuesday, April 25, 2017 14:04 - CONCLUSION: Negative Samson Gonzales MD FACR Lumbar Spine X-Ray 04/25/17 0000 Signed Impressions: Service Date/Time: Tuesday, April 25, 2017 14:42 - CONCLUSION: Minimal loss of vertebral body height as above. Acute compression could be confirmed by MRI if the patient remains symptomatic Samson Gonzales MD FACR Lumbar Spine MRI 04/25/17 0000 Signed Impressions: Service Date/Time: Tuesday, April 25, 2017 21:14 - CONCLUSION: 1. Abnormal signal seen throughout the L1 vertebral body consistent with horizontal fracturing through the vertebral body. Significant loss of height is not seen. 2. Chronic prominent concavity to the superior endplate of L4 without edema. 3. Mild disc bulges at the L3-L4 and L4-L5 levels without significant stenosis. 4. Mild area of hemorrhage seen in the left psoas muscle. Umair Lassiter MD Cervical Spine CT 04/25/17 0000 Signed Impressions: Service Date/Time: Tuesday, April 25, 2017 14:04 - CONCLUSION: 1. No fracture or dislocation. 2. Multilevel degenerative changes. 3. Carotid artery atherosclerotic calcifications. Zeke James Jr., MD Carotid Artery Ultrasound 04/25/17 0000 Signed Impressions: Service Date/Time: Tuesday, April 25, 2017 18:35 - CONCLUSION: Abnormal appearance with severely diminished flow in the right internal carotid artery and a high resistive pattern seen in the more proximal right common carotid artery suggestive of a severe stenosis or occlusion of the more distal internal carotid artery. Further evaluation with CTA or MRA would be recommended. Umair Lassiter MD Objective Remarks GENERAL: Alert, Oriented x 3, NAD. SKIN: Warm and dry. HEAD: Normocephalic. EYES: No scleral icterus. No injection or drainage. NECK: Supple, trachea midline. No JVD or lymphadenopathy. CARDIOVASCULAR: Regular rate and rhythm without murmurs, gallops, or rubs. RESPIRATORY: Breath sounds equal bilaterally. No accessory muscle use. GASTROINTESTINAL: Abdomen soft, non-tender, nondistended. MUSCULOSKELETAL: No cyanosis, or edema. BACK: Nontender without obvious deformity. No CVA tenderness. Procedures None A/P Problem List: (1) Fall ICD Code: W19.XXXA - Unspecified fall, initial encounter Status: Acute Assessment and Plan Mr. Stoner is 81 yo, with history of falls, vertigo, right and left carotid stenosis (with left endarterectomy), diabetic neuropathy, headaches for two months, and cardiac stent placement two months ago. He fell at home on the evening of 04/24/17 at approximately 10:15 PM. He was able to make it bed and slept at home. He awoke with pain and called EMS this morning to come [place] [facility] [place]. - Mild L1 compression fracture without retropulsion. - Chronic L4 compression fracture. - Continue [place] PRN and Morphine for breakthrough. - Per neurosurgery recommendations, continue TLSO for L1 fracture. - Not a surgical candidate due to cardiac stent placement in 12/2016 and current use of Apixaban, Aspirin, Plavix. CAD - s/p cath, stent placement in 12/2016 Chronic Atrial fibrillation - Continue Aspirin, Plavix, Apixaban - Continue Metoprolol succinate 50mg Qday. - Hypertension - Patient was on amlodipine 10 mg, lisinopril 40 mg. - Will discontinue lisinopril and decrease dose of amlodipine to 5 mg by mouth daily. - Discussed with Dr. Fletcher who agrees with this plan. - Acute kidney injury - Baseline creatinine appears to be 1.1-1.2. - Elevation in creatinine perhaps related to lisinopril use. - Would recommend BMP in 1 week after discharge. Left Carotid artery blockage- s/p repair per patient -History of right carotid total occlusion Full code. Apixaban. Discharge plan: Discussed with patient's daughter, son-in-law. Discussed with Cardiology as well. Probable discharge to SNF on 04/29/2017. Problem Qualifiers (1) Fall: Qualified Codes: W19.XXXA - Unspecified fall, initial encounter Moriah Hale DO Apr 28, 2017 3:31 pm
[2017-04-28 16:00] VITALS: BP 119/62; PULSE 78; RESP 16; TEMP 96.9; O2SAT 97
[2017-04-28 19:00] VITALS: BP 113/69; PULSE 70; RESP 15; TEMP 97.4; O2SAT 96
[2017-04-28] MEDS: SODIUM CHLORIDE 0.9% FLUSH 10 ML FLUSH IV FLUSH PRN (22:24)
[2017-04-29] VITALS: BP 121/69; PULSE 73; RESP 16; TEMP 98.3; O2SAT 92
[2017-04-29] MEDS: ACETAMINOPHEN/HYDROcodone 325 MG/7.5 MG TAB PO PRN ×4 (06:00→19:55)
[2017-04-29 08:00] VITALS: BP 117/50; PULSE 74; RESP 18; TEMP 96; O2SAT 95
[2017-04-29] MEDS: amLODIPine BESYLATE 5 MG TAB PO SCH (08:42)
[2017-04-29] MEDS: DULoxetine HCl DR 60 MG CAP PO SCH ×2 (08:42→19:54)
[2017-04-29] MEDS: CLOPIDOGREL 75 MG TAB PO SCH (08:42)
[2017-04-29] MEDS: DOCUSATE SODIUM 50 MG/SENNA 8.6 MG TAB PO SCH ×2 (08:42→19:54)
[2017-04-29] MEDS: CHOLECALCIFEROL (VIT D3) 1000 UNIT TAB PO SCH (08:43)
[2017-04-29] MEDS: APIXABAN 2.5 MG TABLET PO SCH ×2 (08:43→19:54)
[2017-04-29] MEDS: METOPROLOL SUCCINATE 50 MG EXTENDED RELEASE TAB PO SCH (08:43)
[2017-04-29] MEDS: ASPIRIN EC 81 MG TABEC PO SCH (08:43)
[2017-04-29] MEDS: SODIUM CHLORIDE 0.9% FLUSH 10 ML FLUSH IV FLUSH SCH ×2 (08:43→19:54)
[2017-04-29] MEDS ORDERED: LISINOPRIL 20 MG TAB PO SCH (09:00)
[2017-04-29 12:00] VITALS: BP 120/64; PULSE 67; RESP 16; TEMP 97.6; O2SAT 95
[2017-04-29 12:15] LABS: BICARBONATE 27.1 MEQ/L (21.0-32.0); POTASSIUM 4.1 MEQ/L (3.5-5.1)
--- NOTE | 2017-04-29 13:46 | HHI.PR ---
Subjective Remarks Follow-up for L1 compression fracture. Patient is currently doing well. No acute concerns. Had BM. Objective Vitals Vital Signs Date Time Temp Pulse Resp B/P (MAP) Pulse Ox O2 Delivery O2 Flow Rate FiO2 04/29/17 08:00 96.0 74 18 117/50 (72) 95 04/29/17 00:00 98.3 73 16 121/69 (86) 92 04/28/17 19:00 97.4 70 15 113/69 (84) 96 04/28/17 16:00 96.9 78 16 119/62 (81) 97 I/O 04/28/17 04/28/17 04/28/17 04/29/17 04/29/17 04/29/17 07:00 15:00 23:00 07:00 15:00 23:00 Intake Total 480 ml 600 ml 480 ml 350 ml Output Total 700 ml Balance -220 ml 600 ml 480 ml 350 ml Intake Oral 480 ml 600 ml 480 ml 350 ml Output Urine Total 700 ml # Voids 3 2 2 # Bowel Movements 0 1 1 1 1 Result Diagram: 04/27/17 0707 04/29/17 1032 Imaging Last Impressions Head CT 04/25/17 1324 Signed Impressions: Service Date/Time: Tuesday, April 25, 2017 14:04 - CONCLUSION: Negative Samson Gonzales MD FACR Lumbar Spine X-Ray 04/25/17 0000 Signed Impressions: Service Date/Time: Tuesday, April 25, 2017 14:42 - CONCLUSION: Minimal loss of vertebral body height as above. Acute compression could be confirmed by MRI if the patient remains symptomatic Samson Gonzales MD FACR Lumbar Spine MRI 04/25/17 0000 Signed Impressions: Service Date/Time: Tuesday, April 25, 2017 21:14 - CONCLUSION: 1. Abnormal signal seen throughout the L1 vertebral body consistent with horizontal fracturing through the vertebral body. Significant loss of height is not seen. 2. Chronic prominent concavity to the superior endplate of L4 without edema. 3. Mild disc bulges at the L3-L4 and L4-L5 levels without significant stenosis. 4. Mild area of hemorrhage seen in the left psoas muscle. Umair Lassiter MD Cervical Spine CT 04/25/17 0000 Signed Impressions: Service Date/Time: Tuesday, April 25, 2017 14:04 - CONCLUSION: 1. No fracture or dislocation. 2. Multilevel degenerative changes. 3. Carotid artery atherosclerotic calcifications. Zeke James Jr., MD Carotid Artery Ultrasound 04/25/17 0000 Signed Impressions: Service Date/Time: Tuesday, April 25, 2017 18:35 - CONCLUSION: Abnormal appearance with severely diminished flow in the right internal carotid artery and a high resistive pattern seen in the more proximal right common carotid artery suggestive of a severe stenosis or occlusion of the more distal internal carotid artery. Further evaluation with CTA or MRA would be recommended. Umair Lassiter MD Objective Remarks GENERAL: Alert, Oriented x 3, NAD. SKIN: Warm and dry. HEAD: Normocephalic. EYES: No scleral icterus. No injection or drainage. NECK: Supple, trachea midline. No JVD or lymphadenopathy. CARDIOVASCULAR: Regular rate and rhythm without murmurs, gallops, or rubs. RESPIRATORY: Breath sounds equal bilaterally. No accessory muscle use. GASTROINTESTINAL: Abdomen soft, non-tender, nondistended. MUSCULOSKELETAL: No cyanosis, or edema. BACK: Nontender without obvious deformity. No CVA tenderness. Procedures None A/P Problem List: (1) Fall ICD Code: W19.XXXA - Unspecified fall, initial encounter Status: Acute Assessment and Plan Mr. Stoner is 81 yo, with history of falls, vertigo, right and left carotid stenosis (with left endarterectomy), diabetic neuropathy, headaches for two months, and cardiac stent placement two months ago. He fell at home on the evening of 04/24/17 at approximately 10:15 PM. He was able to make it bed and slept at home. He awoke with pain and called EMS this morning [place] come [place] [facility] [place]. - Mild L1 compression fracture without retropulsion. - Chronic L4 compression fracture. - Continue [place] PRN and Morphine for breakthrough. - Per neurosurgery recommendations, continue TLSO for L1 fracture. - Not a surgical candidate due to cardiac stent placement in 12/2016 and current use of Apixaban, Aspirin, Plavix. CAD - s/p cath, stent placement in 12/2016 Chronic Atrial fibrillation - Continue Aspirin, Plavix, Apixaban - Continue Metoprolol succinate 50mg Qday. - Hypertension - Patient was on amlodipine 10 mg, lisinopril 40 mg. - discontinued lisinopril and decrease dose of amlodipine to 5 mg by mouth daily. - Discussed with Dr. Fletcher who agrees with this plan. - Acute kidney injury - Baseline creatinine appears to be 1.1-1.2. - Creatinine went to around 1.4. However, today, creatinine is 3.44. This is possibly due to use of Lisinopril. - Will hold discharge today. - Consult nephrology. Obtain Urine sodium, chloride, creatinine. - Start gentle hydration with NS 84cc/hour. Left Carotid artery blockage- s/p repair per patient -History of right carotid total occlusion Full code. Apixaban. Problem Qualifiers (1) Fall: Qualified Codes: W19.XXXA - Unspecified fall, initial encounter Moriah Hale DO Apr 29, 2017 1:46 pm
[2017-04-29] MEDS: SODIUM CHLOR 0.9% 1000 ML INJ 1,000 ML IV SCH (14:55)
[2017-04-29 16:00] VITALS: BP 137/60; PULSE 72; RESP 16; TEMP 96.4; O2SAT 94
--- NOTE | 2017-04-29 16:18 | RADRPT ---
EXAM DATE/TIME: 04/29/2017 15:53 [facility] COMPARISON: No previous studies available for comparison. INDICATIONS : Abnormal labs. MEDICAL HISTORY : Myocardial infarction. Congestive heart failure. TIA. CVA. Vertigo. Syncope. Anticoagulant therapy. Hypertension. Sleep apnea. Dyspnea. Hital hernia. GERD. Diabetes. SURGICAL HISTORY : Cataracts. CABG. Hernia repair. Hemorroidectomy. Right knee arthroscopic. ENCOUNTER: Initial ACUITY: 1 day PAIN SCORE: 4/10 LOCATION: Bilateral flank MEASUREMENTS: RIGHT KIDNEY: 12.1 x 6.5 x 7.6 cm LEFT KIDNEY: 12.2 x 6.5 x 6.5 cm FINDINGS: RIGHT KIDNEY: The right kidney is normal in size with mild cortical thinning and atrophy. There is no focal mass, c alculi or obstruction. LEFT KIDNEY: The left kidney is normal in size with mild cortical thinning and atrophic change. There is no focal mass, calculi or obstruction. BLADDER: Within normal limits given the degree of distension. CONCLUSION: Mild cortical thinning and atrophic change with no obstruction. Cordell Walton MD on April 29, 2017 at 16:15 Board Certified Radiologist. This report was verified electronically.
[2017-04-29 20:00] VITALS: BP 154/72; PULSE 80; RESP 20; TEMP 96.2; O2SAT 95
--- NOTE | 2017-04-29 22:17 | MB ---
cc: DAYANA VERGARA MD DATE OF CONSULTATION: 04/29/2017. REASON FOR CONSULTATION: Acute kidney injury with elevated BUN and creatinine. HISTORY OF PRESENT ILLNESS: This is an 81-year-old male with past medical history of hypertension, atrial fibrillation, gastroesophageal reflux disease (GERD), chronic kidney disease, ischemic heart disease, gout, congestive heart failure who came to the hospital with complaint of history of fall and back pain. I was called to see the patient because of elevated BUN and creatinine. The patient had a creatinine of 1.4 on presentation, which was stable until two days ago and today it has gone up to 3.4. The patient denies any nausea or vomiting but he admits that he has not been eating very well. There is no abdominal pain. There is no history of diarrhea. He denies any shortness of breath or chest pain. No dysuria or hematuria or difficulty in passing urine. He previously had creatinine in the range of 1.1 to 1.2 so he has chronic kidney disease and now there is some acute worsening. PAST MEDICAL HISTORY: 1. Hypertension. 2. Ischemic heart disease. 3. Congestive heart failure. 4. Gastroesophageal reflux disease (GERD). 5. Gout. 6. Sleep apnea. PAST SURGICAL HISTORY: 1. Coronary artery bypass grafting in 1992. 2. Cardiac catheterization with stent. 3. Left endarterectomy. 4. Abdominal surgery with hernia. 5. Hemorrhoidectomy. 6. Knee surgery. REVIEW OF SYSTEMS: The patient denies any history of fever. No headache or dizziness. No blurring of vision. He still has back pain and he is also complaining of decreased appetite. Occasionally he has nausea. There is no vomiting. No shortness of breath. No chest pain . No abdominal pain. No history of diarrhea. No dysuria or hematuria or difficulty in passing urine. SOCIAL HISTORY: The patient has a past history of smoking and drinking alcohol three to four times per week. FAMILY HISTORY: Family history is noncontributory. ALLERGIES: HE HAS NO KNOWN DRUG ALLERGIES. MEDICATIONS: Currently he is on: 1. Normal saline at 100/hour. 2. Alyssa-Colace one tablet twice a day. 3. Cymbalta 60 milligrams twice a day. 4. Metoprolol 50 milligrams once a day. 5. Vitamin D3 1000 units once a day. 6. Aspirin 81 milligrams daily. 7. Plavix 75 milligrams daily. 8. Norvasc 100 milligrams daily. 9. Tylenol as needed. PHYSICAL EXAMINATION: GENERAL: On examination, the patient is awake and alert and he is not in acute distress. VITAL SIGNS: His last blood pressure is 154/72, temperature is 96.2, oxygen saturation is 94% to 95%. The lowest blood pressure recorded was 96/66 and this was yesterday morning. HEAD, EYES, EARS, NOSE, THROAT: The pupils are mid-constricted. Nonicteric sclerae. Conjunctivae are pale. NECK: The neck is supple. JVD is not elevated. LUNGS: The patient has bilateral decreased air entry with occasional wheezing. HEART: S1 and S2 regular rhythm. ABDOMEN: Abdomen soft and lax. There is no tenderness. Bowel sounds positive. EXTREMITIES: There is no edema. INVESTIGATIONS: White blood cell count is 9.0, hemoglobin 15.6, platelet count 219,000, neutrophils 61.3%, eosinophils 5.5%. Sodium 131, potassium 4.1, chloride 98, bicarbonate 27.1, BUN 66, creatinine 3.4, calcium is 8.9. INR is 1.0. Urine sodium is 38. IMAGING STUDIES: The patient had an ultrasound of the kidneys done which shows the right kidney is 12.1 and the left kidney is 12.2 cm. No focal mass, calculi or obstruction. Some mild cortical thinning. ASSESSMENT AND PLAN: 1. Acute kidney injury. 2. History of hypertension. 3. Back pain and compression fracture of L1. 4. Ischemic heart disease. 5. History of congestive heart failure. The patient has chronic kidney disease and the creatinine baseline is close to 1.2 to 1.3 and he was admitted with a creatinine of 1.4. Possibly he has chronic kidney disease because he is hypertensive or renovascular disease and now there is acute kidney injury. The differential diagnosis for acute kidney injury would be either pre-renal or possibility of interstitial nephritis. The patient has eosinophilia and I will send the urine for eosinophils and also get a urinalysis to see if he has significant proteinuria. I agree with continuing the IV fluids and holding the lisinopril at present and avoiding also any other nephrotoxins. Thank you for the consultation and I will follow the patient while he is in the hospital. MD PARISH Velasquez/LISA /9:59 PM /10:08 PM
[2017-04-30] VITALS (7 sets, daily range): BP systolic 127–167; BP diastolic 66–80; PULSE 62–88; RESP 17–18; TEMP 95.3–97.5; O2SAT 92–98
[2017-04-30] MEDS: SODIUM CHLOR 0.9% 1000 ML INJ 1,000 ML IV SCH ×3 (01:06→22:07)
[2017-04-30] MEDS: ACETAMINOPHEN/HYDROcodone 325 MG/7.5 MG TAB PO PRN ×6 (01:06→22:07)
[2017-04-30 01:57] LABS: BLOOD, URINE NEG (NEG); GLUCOSE,URINE NEG (NEG); KETONE, URINE NEG (NEG); NITRITE,URINE NEG (NEG); PH, URINE 5.5 (5.0-8.5); URINE COLOR YELLOW (YELLW/STRAW)
[2017-04-30 02:52] LABS: BACTERIA, URINE OCC /hpf; COMMENT (UR) CULT NOT INDICATED; CULTURE IF INDICATED CULT NOT INDICATED; HYALINE CAST, URINE 0-2 /lpf (RARE); RBC, URINE 0-3 /hpf (0-3); SQUAMOUS EPITHELIAL CELL URINE 0-5 /hpf (0-5); WBC, URINE 0-2 /hpf (0-5)
[2017-04-30 07:43] LABS: AUTOMATED NEUTROPHIL # 4.4 TH/MM3 (1.8-7.7); BASOPHIL % 0.5 % (0.0-2.0); EOSINOPHIL # 0.6 TH/MM3 (0-0.4); EOSINOPHIL % 7.4 % (0.0-4.0); HEMATOCRIT 41.9 % (39.0-51.0); HEMO FLAGS DIFF FINAL; LYMPH % 24.7 % (9.0-44.0); MEAN CELL VOLUME 96.1 FL (80.0-100.0); MEAN CORPUSCULAR HEMOGLOBIN 32.5 PG (27.0-34.0); MEAN CORPUSCULAR HGB CONC 33.8 % (32.0-36.0); NEUT % 54.4 % (16.0-70.0); PLATELET COUNT 282 TH/MM3 (150-450); RED BLOOD COUNT 4.36 MIL/MM3 (4.50-5.90); RED CELL DISTRIBUTION WIDTH 13.8 % (11.6-17.2); WHITE BLOOD COUNT 8.1 TH/MM3 (4.0-11.0)
[2017-04-30 08:19] LABS: BICARBONATE 25.8 MEQ/L (21.0-32.0); POTASSIUM 4.2 MEQ/L (3.5-5.1)
[2017-04-30] MEDS: SODIUM CHLORIDE 0.9% FLUSH 10 ML FLUSH IV FLUSH SCH ×2 (09:00→22:07)
[2017-04-30] MEDS: DULoxetine HCl DR 60 MG CAP PO SCH ×2 (09:40→22:07)
[2017-04-30] MEDS: METOPROLOL SUCCINATE 50 MG EXTENDED RELEASE TAB PO SCH (09:40)
[2017-04-30] MEDS: DOCUSATE SODIUM 50 MG/SENNA 8.6 MG TAB PO SCH ×2 (09:41→22:06)
[2017-04-30] MEDS: CLOPIDOGREL 75 MG TAB PO SCH (09:41)
[2017-04-30] MEDS: amLODIPine BESYLATE 5 MG TAB PO SCH (09:41)
[2017-04-30] MEDS: ASPIRIN EC 81 MG TABEC PO SCH (09:41)
[2017-04-30] MEDS: APIXABAN 2.5 MG TABLET PO SCH ×2 (09:41→22:07)
[2017-04-30] MEDS: CHOLECALCIFEROL (VIT D3) 1000 UNIT TAB PO SCH (09:45)
--- NOTE | 2017-04-30 12:20 | HHI.PR ---
Subjective Remarks Follow-up for L1 compression fracture, MARIANO. Patient is doing well. He reports good urine output. No fever, chills. He does complain of low back pain. Objective Vitals Vital Signs Date Time Temp Pulse Resp B/P (MAP) Pulse Ox O2 Delivery O2 Flow Rate FiO2 04/30/17 08:00 95.3 78 17 133/73 (93) 98 04/30/17 04:00 96.2 76 18 127/76 (93) 98 04/30/17 00:00 97.5 80 18 140/78 (98) 95 04/29/17 20:00 96.2 80 20 154/72 (99) 95 04/29/17 16:00 96.4 72 16 137/60 (85) 94 I/O 04/29/17 04/29/17 04/29/17 04/30/17 04/30/17 04/30/17 07:00 15:00 23:00 07:00 15:00 23:00 Intake Total 350 ml 600 ml 480 ml 1480 ml Output Total 600 ml Balance 350 ml 600 ml -120 ml 1480 ml Intake Oral 350 ml 600 ml 480 ml 480 ml IV Total 1000 ml Output Urine Total 600 ml # Voids 2 3 3 # Bowel Movements 1 1 0 0 Result Diagram: 04/30/17 0715 04/30/17 0715 Imaging Last Impressions Renal Ultrasound 04/29/17 0000 Signed Impressions: Service Date/Time: Saturday, April 29, 2017 15:53 - CONCLUSION: Mild cortical thinning and atrophic change with no obstruction. Cordell Walton MD Head CT 04/25/17 1324 Signed Impressions: Service Date/Time: Tuesday, April 25, 2017 14:04 - CONCLUSION: Negative Samson Gonzales MD FACR Lumbar Spine X-Ray 04/25/17 0000 Signed Impressions: Service Date/Time: Tuesday, April 25, 2017 14:42 - CONCLUSION: Minimal loss of vertebral body height as above. Acute compression could be confirmed by MRI if the patient remains symptomatic Samson Gonzales MD FACR Lumbar Spine MRI 04/25/17 0000 Signed Impressions: Service Date/Time: Tuesday, April 25, 2017 21:14 - CONCLUSION: 1. Abnormal signal seen throughout the L1 vertebral body consistent with horizontal fracturing through the vertebral body. Significant loss of height is not seen. 2. Chronic prominent concavity to the superior endplate of L4 without edema. 3. Mild disc bulges at the L3-L4 and L4-L5 levels without significant stenosis. 4. Mild area of hemorrhage seen in the left psoas muscle. Umair Lassiter MD Cervical Spine CT 04/25/17 0000 Signed Impressions: Service Date/Time: Tuesday, April 25, 2017 14:04 - CONCLUSION: 1. No fracture or dislocation. 2. Multilevel degenerative changes. 3. Carotid artery atherosclerotic calcifications. Zeke James Jr., MD Carotid Artery Ultrasound 04/25/17 0000 Signed Impressions: Service Date/Time: Tuesday, April 25, 2017 18:35 - CONCLUSION: Abnormal appearance with severely diminished flow in the right internal carotid artery and a high resistive pattern seen in the more proximal right common carotid artery suggestive of a severe stenosis or occlusion of the more distal internal carotid artery. Further evaluation with CTA or MRA would be recommended. Umair Lassiter MD Objective Remarks GENERAL: Alert, Oriented x 3, NAD. SKIN: Warm and dry. HEAD: Normocephalic. EYES: No scleral icterus. No injection or drainage. NECK: Supple, trachea midline. No JVD or lymphadenopathy. CARDIOVASCULAR: Regular rate and rhythm without murmurs, gallops, or rubs. RESPIRATORY: Breath sounds equal bilaterally. No accessory muscle use. GASTROINTESTINAL: Abdomen soft, non-tender, nondistended. MUSCULOSKELETAL: No cyanosis, or edema. BACK: Nontender without obvious deformity. No CVA tenderness. Procedures None A/P Problem List: (1) Fall ICD Code: W19.XXXA - Unspecified fall, initial encounter Status: Acute (2) MARIANO (acute kidney injury) ICD Code: N17.9 - Acute kidney failure, unspecified (3) CAD (coronary artery disease) ICD Code: I25.10 - Atherosclerotic heart disease of [place] coronary artery without angina pectoris Status: Acute (4) Hypertension ICD Code: I10 - Essential (primary) hypertension Status: Acute (5) Compression fracture of L1 lumbar vertebra ICD Code: S32.010A - Wedge compression fracture of first lumbar vertebra, initial encounter for closed fracture Assessment and Plan Mr. Stoner is 81 yo, with history of falls, vertigo, right and left carotid stenosis (with left endarterectomy), diabetic neuropathy, headaches for two months, and cardiac stent placement two months ago. He fell at home on the evening of 04/24/17 at approximately 10:15 PM. He was able to make it bed and slept at home. He awoke with pain and called EMS this morning [place] [facility] [place]. - Mild L1 compression fracture without retropulsion. - Chronic L4 compression fracture. - Continue [place] PRN and Morphine for breakthrough. - Per neurosurgery recommendations, continue TLSO for L1 fracture. - Not a surgical candidate due to cardiac stent placement in 12/2016 and current use of Apixaban, Aspirin, Plavix. CAD - s/p cath, stent placement in 12/2016 Chronic Atrial fibrillation - Continue Aspirin, Plavix, Apixaban - Continue Metoprolol succinate 50mg Qday. - Hypertension - Patient was on amlodipine 10 mg, lisinopril 40 mg. - discontinued lisinopril and decrease dose of amlodipine to 5 mg by mouth daily. - Discussed with Dr. Fletcher who agrees with this plan. - Acute kidney injury - Baseline creatinine appears to be 1.1-1.2. - Creatinine improved from 3.44 --> 1.99 today. - Nephrology is following. - Renal US unremarkable. FENA 0.5%. - Will continue IV hydration with NS 100cc/hour. - Continue to hold Lisinopril - will likely discontinue on discharge as well. Left Carotid artery blockage- s/p repair per patient -History of right carotid total occlusion Full code. Apixaban. Discharge plan: If creatinine continues to improve, we will likely discharge patient on 05/01/2017. Problem Qualifiers (1) Fall: Qualified Codes: W19.XXXA - Unspecified fall, initial encounter Moriah Hale DO Apr 30, 2017 12:20 pm
--- NOTE | 2017-04-30 14:29 | HHI.NPPN ---
Subjective Additional Remarks No acute complaints Objective Data Data Vital Signs Date Time Temp Pulse Resp B/P (MAP) Pulse Ox O2 Delivery O2 Flow Rate FiO2 04/30/17 11:00 15 04/30/17 08:00 95.3 78 17 133/73 (93) 98 04/30/17 04:00 96.2 76 18 127/76 (93) 98 04/30/17 00:00 97.5 80 18 140/78 (98) 95 04/29/17 20:00 96.2 80 20 154/72 (99) 95 04/29/17 16:00 96.4 72 16 137/60 (85) 94 -: 04/30/17 0715 04/30/17 0715 Physical Exam General Appearance: Well Developed, Well Nourished, No Acute Distress Eyes Eye Exam: Pupils Equal Throat Throat Exam: Oral Mucosa [place] & Moist Pulmonary Resp Exam: Clear Bilaterally Cardiology CV Exam: Regular Gastrointestinal/Abdomen GI Exam: Soft, Non-Tender, Bowel Sounds Present Integumentary Skin Exam: Dry, Intact Extremeties Extremities Exam: No Edema Neurologic Neuro Exam: Alert, Awake, Oriented Assessment/Plan Problem List: (1) CHF (congestive heart failure) ICD Codes: I50.9 - Heart failure, unspecified (2) MARIANO (acute kidney injury) ICD Codes: N17.9 - Acute kidney failure, unspecified Status: Acute (3) Hypertension ICD Codes: I10 - Essential (primary) hypertension Status: Acute Plan 1. Acute kidney injury. 2. History of hypertension. 3. Back pain and compression fracture of L1. 4. Ischemic heart disease. 5. History of congestive heart failure. Baseline creatinine 1.2 to 1.3 and he was admitted with a creatinine of 1.4. CKD possibly due to HTN or renovascular disease. Urine eosinophills were ordered. Creatinine improved today from 3.4 ->1.9 Good UOP FeNa suggestive of pre-renal etiology, and patient has had diminished PO intake. Continue with IVFs at 100cc/hour. Hold KATHYA-I and avoid nephrotoxins. Check AM labs, renal function improving today. Problem Qualifiers (1) CHF (congestive heart failure): Qualified Codes: I50.9 - Heart failure, unspecified (2) Hypertension: Qualified Codes: I10 - Essential (primary) hypertension Craig Price MD Apr 30, 2017 14:29
[2017-04-30] MEDS: SENNOSIDES 8.6 MG TAB PO PRN (22:07)
[2017-05-01 04:18] VITALS: BP 151/82; PULSE 76; RESP 19; TEMP 96.7; O2SAT 93
[2017-05-01] MEDS: SODIUM CHLOR 0.9% 1000 ML INJ 1,000 ML IV SCH (05:45)
[2017-05-01] MEDS: ACETAMINOPHEN/HYDROcodone 325 MG/7.5 MG TAB PO PRN ×3 (05:45→15:13)
[2017-05-01 08:00] VITALS: BP 184/79; PULSE 78; RESP 18; TEMP 96.2; O2SAT 96
[2017-05-01 08:27] LABS: POTASSIUM 4.2 MEQ/L (3.5-5.1)
[2017-05-01] MEDS: amLODIPine BESYLATE 5 MG TAB PO SCH (08:47)
[2017-05-01] MEDS: SODIUM CHLORIDE 0.9% FLUSH 10 ML FLUSH IV FLUSH SCH (08:47)
[2017-05-01] MEDS: DULoxetine HCl DR 60 MG CAP PO SCH (08:47)
[2017-05-01] MEDS: CLOPIDOGREL 75 MG TAB PO SCH (08:47)
[2017-05-01] MEDS: ASPIRIN EC 81 MG TABEC PO SCH (08:47)
[2017-05-01] MEDS: CHOLECALCIFEROL (VIT D3) 1000 UNIT TAB PO SCH (08:47)
[2017-05-01] MEDS: DOCUSATE SODIUM 50 MG/SENNA 8.6 MG TAB PO SCH (08:47)
[2017-05-01] MEDS: METOPROLOL SUCCINATE 50 MG EXTENDED RELEASE TAB PO SCH (08:47)
[2017-05-01] MEDS: APIXABAN 2.5 MG TABLET PO SCH (08:47)
[2017-05-01] MEDS ORDERED: amLODIPine BESYLATE 5 MG TAB PO ONE (09:30)
[2017-05-01 10:30] VITALS: BP 146/67; PULSE 84; RESP 20; TEMP 96.9; O2SAT 95
[2017-05-01 11:30] VITALS: RESP 18
--- NOTE | 2017-05-01 14:24 | HHI.NPPN ---
Subjective Additional Remarks No acute complaints Objective Data Data 05/01/17 05/02/17 19:00 07:00 Intake Total 400 ml Balance 400 ml IV Total 400 ml Vital Signs Date Time Temp Pulse Resp B/P (MAP) Pulse Ox O2 Delivery O2 Flow Rate FiO2 05/01/17 11:30 18 05/01/17 10:30 96.9 84 20 146/67 (93) 95 05/01/17 08:00 96.2 78 18 184/79 (114) 96 05/01/17 04:18 96.7 76 19 151/82 (105) 93 04/30/17 23:11 96.7 88 18 154/79 (104) 94 04/30/17 19:47 97.1 62 18 167/80 (109) 92 04/30/17 16:00 97.1 75 17 135/70 (91) 96 -: 04/30/17 0715 05/01/17 0737 Physical Exam General Appearance: Well Developed, Well Nourished, No Acute Distress Eyes Eye Exam: Pupils Equal Throat Throat Exam: Oral Mucosa [place] & Moist Pulmonary Resp Exam: Clear Bilaterally Cardiology CV Exam: Regular Gastrointestinal/Abdomen GI Exam: Soft, Non-Tender, Bowel Sounds Present Integumentary Skin Exam: Dry, Intact Extremeties Extremities Exam: No Edema Neurologic Neuro Exam: Alert, Awake, Oriented Assessment/Plan Problem List: (1) CHF (congestive heart failure) ICD Codes: I50.9 - Heart failure, unspecified (2) MARIANO (acute kidney injury) ICD Codes: N17.9 - Acute kidney failure, unspecified Status: Acute (3) Hypertension ICD Codes: I10 - Essential (primary) hypertension Status: Acute Plan 1. Acute kidney injury. 2. History of hypertension. 3. Back pain and compression fracture of L1. 4. Ischemic heart disease. 5. History of congestive heart failure. Baseline creatinine 1.2 to 1.3 and he was admitted with a creatinine of 1.4. CKD possibly due to HTN or renovascular disease. Urine eosinophills were negative. Creatinine improved today 1.9 -> 1.2 Good UOP FeNa suggestive of pre-renal etiology, and patient has had diminished PO intake. Can stop IVFs, continue PO intake. Stable for d/c from renal standpoint. Problem Qualifiers (1) CHF (congestive heart failure): Qualified Codes: I50.9 - Heart failure, unspecified (2) Hypertension: Qualified Codes: I10 - Essential (primary) hypertension Craig Price MD May 01, 2017 14:24
[2017-05-01] MEDS ORDERED: AMLO10TA2 PO (14:50)
== END 2017-05-01 16:16 | DRG 683 ==
LOC: NEDAMB 12:42 → NEDA 16:29 → NEPFCDU 19:22 → N06A 04-26 18:14 → OBSVTOIN 04-29 13:51
PROVIDERS: ADMIT Hospitalist; ATTEND Hospitalist
DX: N17.9 Acute kidney failure, unspecified (principal); I13.0 Hypertensive heart and chronic kidney disease with heart failure and stage 1 through stage 4 chronic kidney disease, or unspecified chronic kidney disease; S32.049A Unspecified fracture of fourth lumbar vertebra, initial encounter for closed fracture; E11.22 Type 2 diabetes mellitus with diabetic chronic kidney disease; S32.010A Wedge compression fracture of first lumbar vertebra, initial encounter for closed fracture; S32.040A Wedge compression fracture of fourth lumbar vertebra, initial encounter for closed fracture; I50.9 Heart failure, unspecified; E11.40 Type 2 diabetes mellitus with diabetic neuropathy, unspecified; K21.9 Gastro-esophageal reflux disease without esophagitis; I25.2 Old myocardial infarction; N18.2 Chronic kidney disease, stage 2 (mild); M62.830 Muscle spasm of back; R00.2 Palpitations; I25.10 Atherosclerotic heart disease of native coronary artery without angina pectoris; I65.21 Occlusion and stenosis of right carotid artery; I48.2 Chronic atrial fibrillation; J44.9 Chronic obstructive pulmonary disease, unspecified; I25.5 Ischemic cardiomyopathy; E78.5 Hyperlipidemia, unspecified; G47.30 Sleep apnea, unspecified; M10.9 Gout, unspecified; F32.9 Major depressive disorder, single episode, unspecified; W18.30XA Fall on same level, unspecified, initial encounter; Y92.009 Unspecified place in unspecified non-institutional (private) residence as the place of occurrence of the external cause; Z79.01 Long term (current) use of anticoagulants; Z86.73 Personal history of transient ischemic attack (TIA), and cerebral infarction without residual deficits; Z87.891 Personal history of nicotine dependence; Z91.81 History of falling; Z95.5 Presence of coronary angioplasty implant and graft; Z95.1 Presence of aortocoronary bypass graft
CPT/HCPCS: 70450; 72100; 72125; 72148; 76775; 80048; 80053; 81001; 82306; 82436; 82550; 82570; 83735; 84300; 85025; 87205; 93880; 96361; 96372; 96374; 96375; 96376; G0378; G8987-GP; G8988-GP; J1644; J2270; J2360; J2405; J7030; J7040; L0200; L0484

== ENCOUNTER 2017-08-19 10:08 | Inpatient (IN) | payer OTHER, MEDICARE ==
[~2017-08-19] VITALS: Ht 188 cm; Wt 96.0 kg
[2017-08-19] VITALS (8 sets, daily range): BP systolic 123–149; BP diastolic 60–89; PULSE 68–96; RESP 16–28; TEMP 97.5–98.5; O2SAT 92–97
[~2017-08-19 10:08] MED LIST changes: -AMLO10 PO; +AMLO10TA2 PO; +APIX2.5T PO; +CYCL7.5T33 PO; -GABA300C5 PO; -GLIM1TAB PO; +HYDR-3516 PO; -LISI-515 PO; -SIMV20TA PO; +WALKER WHEELS/F1 MIS; -XARE15TA PO; -ZOLP10TA3 PO
[2017-08-19 11:04] LABS: AUTOMATED NEUTROPHIL # 5.4 TH/MM3 (1.8-7.7); BASOPHIL # 0.1 TH/MM3 (0-0.2); BASOPHIL % 1.1 % (0.0-2.0); EOSINOPHIL # 0.4 TH/MM3 (0-0.4); EOSINOPHIL % 4.3 % (0.0-4.0); HEMOGLOBIN 14.5 GM/DL (13.0-17.0); LYMPHOCYTE # 2.7 TH/MM3 (1.0-4.8); MEAN CORPUSCULAR HEMOGLOBIN 30.1 PG (27.0-34.0); MEAN CORPUSCULAR HGB CONC 33.8 % (32.0-36.0); MEAN PLATELET VOLUME 7.4 FL (7.0-11.0); MONO % 11.1 % (0.0-8.0); MONOCYTE # 1.1 TH/MM3 (0-0.9); NEUT % 55.5 % (16.0-70.0); PLATELET COUNT 293 TH/MM3 (150-450); RED BLOOD COUNT 4.83 MIL/MM3 (4.50-5.90); RED CELL DISTRIBUTION WIDTH 16.3 % (11.6-17.2); WHITE BLOOD COUNT 9.7 TH/MM3 (4.0-11.0)
[2017-08-19 11:18] LABS: CALCIUM 8.7 MG/DL (8.5-10.1); CREATININE 1.52 MG/DL (0.60-1.30)
[2017-08-19 11:22] LABS: TROPONIN I 0.02 NG/ML (0.02-0.05)
[2017-08-19] MEDS ORDERED: GABA300C5 PO ×2 (11:59)
[2017-08-19] MEDS ORDERED: METO50TA PO (12:04)
[2017-08-19] MEDS ORDERED: OMEP20TA93 PO (12:04)
[2017-08-19] MEDS ORDERED: XARE20TA PO (12:04)
[2017-08-19] MEDS ORDERED: CYMB60CA PO (12:06)
[2017-08-19] MEDS ORDERED: GLIM1TAB PO (12:06)
[2017-08-19] MEDS ORDERED: MELA1TAB18 PO (12:06)
[2017-08-19] MEDS ORDERED: ENAL2.5T PO (12:07)
--- NOTE | 2017-08-19 12:10 | RADRPT ---
EXAM DATE/TIME: 08/19/2017 11:54 [facility] COMPARISON: CHEST SINGLE AP, January 06, 2017, 10:04. INDICATIONS : Shortness of breath. MEDICAL HISTORY : Myocardial infarction. Congestive heart failure. TIA. CVA. Vertigo. Syncope.Dyspnea. Hital hernia. GE RD. Diabetes. SURGICAL HISTORY : Cataracts. CABG. Hernia repair. Hemorroidectomy. Right knee arthroscopic. ENCOUNTER: Initial ACUITY: 2 weeks PAIN SCORE: 0/10 LOCATION: Bilateral chest FINDINGS: A single view of the chest demonstrates the lungs to be symmetrically aerated without evidence of mas s, infiltrate or effusion. Heart size remains prominent but well compensated. Intact median sternotom y wires. Osseous structures are intact. CONCLUSION: 1. Compensated cardiomegaly. 2. Lungs are clear. 3. No change from prior. Arvin Dsouza MD on August 19, 2017 at 12:04 Board Certified Radiologist. This report was verified electronically.
[2017-08-19] MEDS ORDERED: FUROSEMIDE 40 MG/4 ML VIAL IV PUSH ONE (12:15)
--- NOTE | 2017-08-19 12:21 | PD ---
HPI Chief Complaint: Respiratory Symptoms Time Seen by Provider: 11:45 Travel History International Travel<30 days: No Contact w/Intl Traveler<30days: No Traveled to known affect area: No History of Present Illness HPI 81-year-old male states over the past couple of days he has been having shortness of breath. His wellness guide did a stress test on Tuesday that showed that his heart had 22% of the pumping. He states this is new for him. He states that he does not have any chest pain or any other concurrent complaints at this time. He states he feels worse when he moves around. He denies other specific modifying factors. Quality is hard to catch breath. Severity is progressive. He states Dr. German is his wellness guide and currently out of town. He states he had an outpatient x-ray that showed fluid on his lungs at [place]. PFSH Past Medical History Asthma: No Blood Disorders: No Anxiety: No Depression: No Heart Rhythm Problems: Yes (Afib) Cancer: No Cardiac Catheterization: Yes Cardiovascular Problems: Yes (TRIPLE CABG) High Cholesterol: No Chemotherapy: No Chest Pain: Yes Congestive Heart Failure: Yes COPD: No Cerebrovascular Accident: Yes Coronary Artery Disease: Yes Diabetes: Yes Patient Takes Glucophage: No Endocrine: No Gastrointestinal Disorders: Yes (inguinial hernias) GERD: Yes Genitourinary: No Hiatal Hernia: Yes Hypertension: Yes Immune Disorder: No Implanted Vascular Access Dvce: Yes Musculoskeletal: Yes (rt knee) Neurologic: Yes (tia) Psychiatric: Yes Reproductive: No Respiratory: Yes Immunizations Current: Yes Myocardial Infarction: Yes Radiation Therapy: No Sleep Apnea: Yes (CPAP) Thyroid Disease: No Tetanus Vaccination: < 5 Years Influenza Vaccination: Yes Past Surgical History Abdominal Surgery: Yes (x5 abd hernia hemorroidectomy) Body Medical Devices: wire mesh to the chest Cardiac Surgery: Yes (triple by-pass 1992) Coronary Artery Bypass Graft: Yes (X3 1992) Coronary Stent: Yes (X 2 01/2017) Thoracic Surgery: Yes Other Surgery: Yes ( hemeroidectomy, knee sx, catarac sx, carotid) Social History Alcohol Use: Yes (3xweek) Tobacco Use: No (QUIT ) Substance Use: No Allergies-Medications (Allergen,Severity, Reaction): Coded Allergies: No Known Allergies (Verified , 07/28/11) Reported Meds & Prescriptions Reported Meds & Active Scripts Active Amlodipine (Amlodipine Besylate) 10 Mg Tab 10 Mg PO DAILY Aspirin Low Strength (Aspirin) 81 Mg Chew 81 Mg PO DAILY 30 Days Reported Metoprolol Succinate ER 24 HR (Metoprolol Succinate) 50 Mg Tab 50 Mg PO HS Enalapril (Enalapril Maleate) 2.5 Mg Tab 2.5 Mg PO DAILY Cymbalta DR (Duloxetine HCl) 60 Mg Capdr 60 Mg PO HS Melatonin 10 Mg-1 Mg Tab 10 Mg PO HS PRN Glimepiride 1 Mg Tab 1 Mg PO DAILY Take with breakfast or first main meal Xarelto (Rivaroxaban) 20 Mg Tab 20 Mg PO DAILY Omeprazole 20 Mg Tab 20 Mg PO DAILY Gabapentin 300 Mg Cap 600 Mg PO HS Gabapentin 300 Mg Cap 300 Mg PO DAILY Review of Systems Except as stated in HPI: all other systems reviewed are Neg Physical Exam Narrative GENERAL: 81-year-old male who appears short of breath SKIN: Focused skin assessment warm/dry. HEAD: Atraumatic. Normocephalic. EYES: No scleral icterus. No injection or drainage. ENT: No nasal bleeding or discharge. Mucous membranes pink and moist. NECK: Trachea midline. CARDIOVASCULAR: irregular rate and rhythm. RESPIRATORY: No accessory muscle use. Clear to auscultation. Breath sounds equal bilaterally. MUSCULOSKELETAL: No obvious deformities. No clubbing. No cyanosis. NEUROLOGICAL: Awake. Moves extremities. Normal speech. PSYCHIATRIC: Appropriate mood and affect; insight and judgment normal. Data Data Last Documented VS Vital Signs Date Time Temp Pulse Resp B/P (MAP) Pulse Ox O2 Delivery O2 Flow Rate FiO2 08/19/17 12:53 74 27 137/71 (93) 96 Nasal Cannula 08/19/17 10:13 98.0 Orders Orders Electrocardiogram (08/19/17 10:25) Complete Blood Count With Diff (08/19/17 10:25) Basic Metabolic Panel (Bmp) (08/19/17 10:25) Ckmb (Isoenzyme) Profile (08/19/17 10:25) Troponin I (08/19/17 10:25) B-Type Natriuretic Peptide (08/19/17 11:45) Chest, Single Ap (08/19/17 ) Furosemide Inj (Lasix Inj) (08/19/17 12:15) Admit Order (Ed Use Only) (08/19/17 15:14) Labs Laboratory Tests Test 08/19/17 10:47 White Blood Count 9.7 TH/MM3 Red Blood Count 4.83 MIL/MM3 Hemoglobin 14.5 GM/DL Hematocrit 43.0 % Mean Corpuscular Volume 89.0 FL Mean Corpuscular Hemoglobin 30.1 PG Mean Corpuscular Hemoglobin Concent 33.8 % Red Cell Distribution Width 16.3 % Platelet Count 293 TH/MM3 Mean Platelet Volume 7.4 FL Neutrophils (%) (Auto) 55.5 % Lymphocytes (%) (Auto) 28.0 % Monocytes (%) (Auto) 11.1 % Eosinophils (%) (Auto) 4.3 % Basophils (%) (Auto) 1.1 % Neutrophils # (Auto) 5.4 TH/MM3 Lymphocytes # (Auto) 2.7 TH/MM3 Monocytes # (Auto) 1.1 TH/MM3 Eosinophils # (Auto) 0.4 TH/MM3 Basophils # (Auto) 0.1 TH/MM3 CBC Comment DIFF FINAL Differential Comment Blood Urea Nitrogen 18 MG/DL Creatinine 1.52 MG/DL Random Glucose 86 MG/DL Calcium Level 8.7 MG/DL Sodium Level 138 MEQ/L Potassium Level 4.4 MEQ/L Chloride Level 105 MEQ/L Carbon Dioxide Level 26.0 MEQ/L Anion Gap 7 MEQ/L Estimat Glomerular Filtration Rate 44 ML/MIN Total Creatine Kinase 51 U/L Troponin I 0.02 NG/ML B-Type Natriuretic Peptide 360 PG/ML MDM Medical Decision Making Medical Screen Exam Complete: Yes Emergency Medical Condition: Yes Medical Record Reviewed: Yes (Past history confirmed) Interpretation(s) CBC & BMP Diagram 08/19/17 10:47 Calcium Level 8.7 Last 24 hours Impressions Chest X-Ray 08/19/17 0000 Signed Impressions: Service Date/Time: Saturday, August 19, 2017 11:54 - CONCLUSION: 1. Compensated cardiomegaly. 2. Lungs are clear. 3. No change from prior. Arvin Dsouza MD Differential Diagnosis CHF, anemia, renal failure Narrative Course Will add on BNP and chest x-ray to workup and dose with Lasix and follow bnp in 300 range, discussed with dr clements the patient's son in law who states patient had an echo as an outpatient tuesday that showed an ef of 20% when a couple months ago it was in the 40's, patient symptomatically having difficulty getting around due to shortness of breath and weakness. Will discuss with Dr. german Patient agrees to observation Physician Communication Physician Communication dr coon states to place in observation Diagnosis Primary Impression: CHF (congestive heart failure) Qualified Codes: I50.9 - Heart failure, unspecified Additional Impression: Exertional dyspnea Admitting Information Admitting Physician Requests: Observation Celeste Melo MD Aug 19, 2017 12:21
[2017-08-19] MEDS ORDERED: METO1TAB9 PO (12:41)
[2017-08-19] MEDS ORDERED: IOHEXOL 350 MG/ML 100 ML BTL (for Cath Lab) OTHER ONE (15:18)
[2017-08-19] MEDS ORDERED: SODIUM CHLORIDE 0.9% FLUSH 10 ML FLUSH IV FLUSH PRN (16:00)
[2017-08-19] MEDS ORDERED: NALOXONE HCL 0.4 MG/ML AMP IV PUSH PRN (16:00)
[2017-08-19] MEDS ORDERED: MAGNESIUM HYDROXIDE SUSP 30 ML CUP PO PRN (16:00)
[2017-08-19] MEDS ORDERED: BISACODYL 10 MG SUPP RECTAL PRN (16:00)
[2017-08-19] MEDS ORDERED: LACTULOSE SYRUP 20 GM/30 ML CUP PO PRN (16:00)
[2017-08-19] MEDS ORDERED: ACETAMINOPHEN 325 MG TAB PO PRN (16:00)
[2017-08-19] MEDS ORDERED: ONDANSETRON HCL 4 MG/2 ML VIAL IVP PRN (16:00)
[2017-08-19] MEDS ORDERED: SENNOSIDES 8.6 MG TAB PO PRN (16:00)
[2017-08-19] MEDS ORDERED: DEXTROSE 50% IN WATER 50 ML VIAL(D50) IV PUSH PRN (16:15)
[2017-08-19] MEDS ORDERED: GLUCAGON 1 MG/ML VIAL OTHER PRN (16:15)
[2017-08-19] MEDS ORDERED: MELATONIN 5 MG TAB PO PRN (17:15)
--- NOTE | 2017-08-19 17:48 | HHI.HP ---
[facility] Service [facility] Primary Care Physician Shayy Boone MD Admission Diagnosis chf exacerbation Diagnoses: Chief Complaint: sob Travel History International Travel<30 Days: No Contact w/Intl Traveler <30 Da: No Traveled to Known Affected Are: No History of Present Illness Very pleasant 81-year-old male with h/o CHF EF 40% and repeat echo with EF 20%, CAD with triple CABG, HTN, , Afib, states over the past couple of days he has been having shortness of breath. His car scrubber did a stress test on Tuesday that showed that his heart had 22% of the pumping. He states this is new for him. He states that he does not have any chest pain or any other concurrent complaints at this time. He states he feels worse when he moves around. He denies other specific modifying factors. Quality is hard to catch breath. Severity is progressive. He states Dr. Fletcher is his car scrubber and currently out of town. He states he had an outpatient x-ray that showed fluid on his lungs at [place]. Review of Systems ROS Limitations: Clinical Condition Except as stated in HPI: all other systems reviewed are Neg Past Family Social History Past Medical History CHF EF 40% and repeat echo with EF 20%, CAD with triple CABG, HTN, , Afib, Past Surgical History inguinal hernias repaired rt knee surgery x5 abd hernia hemorrhoidectomy Right CEA triple by-pass 1992 Reported Medications Last Impressions Chest X-Ray 08/19/17 0000 Signed Impressions: Service Date/Time: Saturday, August 19, 2017 11:54 - CONCLUSION: 1. Compensated cardiomegaly. 2. Lungs are clear. 3. No change from prior. Arvin Dsouza MD Allergies: Coded Allergies: No Known Allergies (Verified , 07/28/11) Family History Father mI at the age of 65 Brother lived to age of 91 Daughter with colon CA Social History H/o occasional EtOH use Quit tobacco use 40 years ago Denies illicit drug use Physical Exam Vital Signs Vital Signs Date Time Temp Pulse Resp B/P (MAP) Pulse Ox O2 Delivery O2 Flow Rate FiO2 08/19/17 17:34 97.5 77 24 140/72 (94) 93 08/19/17 17:20 08/19/17 12:53 74 27 137/71 (93) 96 Nasal Cannula 08/19/17 12:39 Nasal Cannula 2.00 08/19/17 11:50 73 28 137/71 (93) 96 08/19/17 10:13 98.0 81 18 123/65 (84) 96 Physical Exam GENERAL: This is a well-nourished, well-developed patient, in no apparent distress. SKIN: No rashes, ecchymoses or lesions. Cool and dry. HEAD: Atraumatic. Normocephalic. No temporal or scalp tenderness. EYES: Pupils equal round and reactive. Extraocular motions intact. No scleral icterus. No injection or drainage. ENT: Nose without bleeding, purulent drainage or septal hematoma. Throat without erythema, tonsillar hypertrophy or exudate. Uvula midline. Airway patent. NECK: Trachea midline. No JVD or lymphadenopathy. Supple, nontender, no meningeal signs. CARDIOVASCULAR: Regular rate and rhythm without murmurs, gallops, or rubs. RESPIRATORY: Clear to auscultation. Breath sounds equal bilaterally. No wheezes , rales, or rhonchi. GASTROINTESTINAL: Abdomen soft, non-tender, nondistended. No hepato-splenomegaly , or palpable masses. No guarding. MUSCULOSKELETAL: Extremities without clubbing, cyanosis, or edema. No joint tenderness, effusion, or edema noted. No calf tenderness. Negative Homans sign bilaterally. NEUROLOGICAL: Awake and alert. Cranial nerves II through XII intact. Motor and sensory grossly within normal limits. Five out of 5 muscle strength in all muscle groups. Normal speech. Laboratory Laboratory Tests Test 08/19/17 10:47 White Blood Count 9.7 Red Blood Count 4.83 Hemoglobin 14.5 Hematocrit 43.0 Mean Corpuscular Volume 89.0 Mean Corpuscular Hemoglobin 30.1 Mean Corpuscular Hemoglobin Concent 33.8 Red Cell Distribution Width 16.3 Platelet Count 293 Mean Platelet Volume 7.4 Neutrophils (%) (Auto) 55.5 Lymphocytes (%) (Auto) 28.0 Monocytes (%) (Auto) 11.1 Eosinophils (%) (Auto) 4.3 Basophils (%) (Auto) 1.1 Neutrophils # (Auto) 5.4 Lymphocytes # (Auto) 2.7 Monocytes # (Auto) 1.1 Eosinophils # (Auto) 0.4 Basophils # (Auto) 0.1 CBC Comment DIFF FINAL Differential Comment Blood Urea Nitrogen 18 Creatinine 1.52 Random Glucose 86 Calcium Level 8.7 Sodium Level 138 Potassium Level 4.4 Chloride Level 105 Carbon Dioxide Level 26.0 Anion Gap 7 Estimat Glomerular Filtration Rate 44 Total Creatine Kinase 51 Troponin I 0.02 B-Type Natriuretic Peptide 360 Result Diagram: 08/19/17 1047 08/19/17 1047 Imaging Last Impressions Chest X-Ray 08/19/17 0000 Signed Impressions: Service Date/Time: Saturday, August 19, 2017 11:54 - CONCLUSION: 1. Compensated cardiomegaly. 2. Lungs are clear. 3. No change from prior. MD Almaz Campa VTE Risk Assessment Almaz VTE Risk Assessment: Mod/High Risk (score >= 2) Caprini Risk Assessment Model Point Value = 1 Point Value = 2 Point Value = 3 Point Value = 5 Age 41-60 Minor surgery BMI > 25 kg/m2 Swollen legs Varicose veins or History of unexplained or recurrent spontaneous Oral contraceptives or hormone replacement Sepsis (< 1 month) Serious lung disease, including pneumonia (< 1 month) Abnormal pulmonary function Acute myocardial infarction Congestive heart failure (< 1 month) History of inflammatory bowel disease Medical patient at bed rest Age 61-74 Arthroscopic surgery Major open surgery (> 45 min) Laparoscopic surgery (> 45 min) Malignancy Confined to bed (> 72 hours) Immobilizing plaster cast Central venous access Age >= 75 History of VTE Family history of VTE Factor V Leiden Prothrombin [id number] Lupus anticoagulant Anticardiolipin antibodies Elevated serum homocysteine Heparin-induced thrombocytopenia Other congenital or acquired thrombophilia Stroke (< 1 month) Elective arthroplasty Hip, pelvis, or leg fracture Acute spinal cord injury (< 1 month) Prophylaxis Regimen Total Risk Factor Score Risk Level Prophylaxis Regimen 0-1 Low Early ambulation 2 Moderate Order ONE of the following: *Sequential Compression Device (SCD) *Heparin 5000 units SQ BID 3-4 Higher Order ONE of the following medications: *Heparin 5000 units SQ TID *Enoxaparin/Lovenox 40 mg SQ daily (WT < 150 kg, CrCl > 30 mL/min) *Enoxaparin/Lovenox 30 mg SQ daily (WT < 150 kg, CrCl > 10-29 mL/min) *Enoxaparin/Lovenox 30 mg SQ BID (WT < 150 kg, CrCl > 30 mL/min) AND/OR *Sequential Compression Device (SCD) 5 or more Highest Order ONE of the following medications: *Heparin 5000 units SQ TID (Preferred with Epidurals) *Enoxaparin/Lovenox 40 mg SQ daily (WT < 150 kg, CrCl > 30 mL/min) *Enoxaparin/Lovenox 30 mg SQ daily (WT < 150 kg, CrCl > 10-29 mL/min) *Enoxaparin/Lovenox 30 mg SQ BID (WT < 150 kg, CrCl > 30 mL/min) AND *Sequential Compression Device (SCD) Assessment and Plan Assessment and Plan CHF (congestive heart failure) with exacerbation patient had a recent ECHO that shows reduced EF from baseline. EF 20%. BNP in 300s COPD exacerbation. Start duonebs scheduled and as need , give solumedrol taper as tolerated. Monitor on tele. Monitor VS. Keep O2 sat > 92 . Give O2 by NC if need H/o CAD with triple bipass in the past follows with Dr Fletcher . DR Carroll will evaluate patient Obtain records form Dr Fletcher Consider repeating 2d echo if need Started on Lasix 40 mg IV bid. Monitor UOP, monitor kidney function closely, monitor VS. Restart home meds as indicated CxR with compensated cardiomegaly Chronic medical problems appears at baseline , continue home meds as appropriate DVT ppx scd/teds on home Xarelto Discussed Condition With pt, family, nurse , ED physician Megha Richards MD Aug 19, 2017 17:48
[2017-08-19] MEDS ORDERED: FUROSEMIDE 40 MG/5 ML UNIT DOSE CUP NG SCH (18:00)
[2017-08-19] MEDS ORDERED: RESP: ALBUTEROL 2.5 MG/IPRATROPIUM 0.5 MG NEB (PRN) NEB (18:00)
[2017-08-19] MEDS: INSULIN ASPART SUPPLEMENTAL SCALE SQ SCH ×2 (18:15→21:00)
[2017-08-19] MEDS: methylPREDNISolone SOD SUCC 40 MG/1 ML VIAL IV PUSH SCH (18:21)
[2017-08-19] MEDS ORDERED: AMBI5TAB PO (19:20)
[2017-08-19] MEDS: RESP: ALBUTEROL 2.5 MG/IPRATROPIUM 0.5 MG NEB (SCH) NEB (19:23)
[2017-08-19] MEDS: METOPROLOL SUCCINATE 50 MG EXTENDED RELEASE TAB PO SCH (22:09)
[2017-08-19] MEDS: DULoxetine HCl DR 60 MG CAP PO SCH (22:09)
[2017-08-19] MEDS: SODIUM CHLORIDE 0.9% FLUSH 10 ML FLUSH IV FLUSH SCH (22:09)
[2017-08-19] MEDS: DOCUSATE SODIUM 50 MG/SENNA 8.6 MG TAB PO SCH (22:09)
[2017-08-19] MEDS: GABAPENTIN 300 MG CAP PO SCH (22:09)
[2017-08-20] VITALS (8 sets, daily range): BP systolic 127–177; BP diastolic 66–80; PULSE 53–86; RESP 16–18; TEMP 97.8–98.9; O2SAT 93–98
[2017-08-20] MEDS: ZOLPIDEM TARTRATE 5 MG TAB PO PRN ×2 (01:00→21:44)
[2017-08-20] MEDS: methylPREDNISolone SOD SUCC 40 MG/1 ML VIAL IV PUSH SCH ×2 (01:01→06:47)
[2017-08-20 07:04] LABS: AUTOMATED NEUTROPHIL # 3.5 TH/MM3 (1.8-7.7); BASOPHIL % 0.1 % (0.0-2.0); HEMATOCRIT 41.1 % (39.0-51.0); HEMOGLOBIN 13.7 GM/DL (13.0-17.0); LYMPH % 20.8 % (9.0-44.0); MEAN CELL VOLUME 89.2 FL (80.0-100.0); MEAN CORPUSCULAR HEMOGLOBIN 29.8 PG (27.0-34.0); MEAN CORPUSCULAR HGB CONC 33.4 % (32.0-36.0); MEAN PLATELET VOLUME 7.4 FL (7.0-11.0); MONO % 1.5 % (0.0-8.0); MONOCYTE # 0.1 TH/MM3 (0-0.9); NEUT % 77.6 % (16.0-70.0); PLATELET COUNT 303 TH/MM3 (150-450); RED BLOOD COUNT 4.61 MIL/MM3 (4.50-5.90); RED CELL DISTRIBUTION WIDTH 15.9 % (11.6-17.2); WHITE BLOOD COUNT 4.6 TH/MM3 (4.0-11.0)
[2017-08-20] MEDS: RESP: ALBUTEROL 2.5 MG/IPRATROPIUM 0.5 MG NEB (SCH) NEB ×3 (07:13→20:19)
[2017-08-20 07:18] LABS: BICARBONATE 24.8 MEQ/L (21.0-32.0); CALCIUM 8.9 MG/DL (8.5-10.1); CREATININE 1.45 MG/DL (0.60-1.30)
[2017-08-20] MEDS ORDERED: RIVAROXABAN 20 MG TAB PO SCH (09:00)
[2017-08-20] MEDS ORDERED: ENALAPRIL MALEATE 2.5 MG TAB PO SCH (09:00)
[2017-08-20] MEDS: INSULIN ASPART SUPPLEMENTAL SCALE SQ SCH ×4 (09:21→21:55)
[2017-08-20] MEDS: SODIUM CHLORIDE 0.9% FLUSH 10 ML FLUSH IV FLUSH SCH ×2 (09:22→20:05)
[2017-08-20] MEDS: FUROSEMIDE 40 MG/4 ML VIAL IV PUSH SCH ×2 (09:22→18:36)
[2017-08-20] MEDS: GABAPENTIN 300 MG CAP PO SCH ×2 (09:22→20:06)
[2017-08-20] MEDS: DOCUSATE SODIUM 50 MG/SENNA 8.6 MG TAB PO SCH ×2 (09:26→20:06)
[2017-08-20] MEDS: ASPIRIN 81 MG CHEW TAB PO SCH (09:26)
[2017-08-20] MEDS: PANTOPRAZOLE SOD 20 MG DELAYED RELEASE TAB PO SCH (09:27)
--- NOTE | 2017-08-20 11:03 | HHI.PR ---
Subjective Remarks Follow-up CHF. Improving shortness of breath but noticeably short of breath just talking and getting up. Discussed with nursing Objective Vitals Vital Signs Date Time Temp Pulse Resp B/P (MAP) Pulse Ox O2 Delivery O2 Flow Rate FiO2 08/20/17 07:29 97.8 86 16 177/80 (112) 94 08/20/17 04:01 81 08/20/17 03:55 98.0 79 18 164/77 (106) 93 08/19/17 23:10 98.5 96 18 127/60 (82) 92 08/19/17 20:00 98.4 68 20 149/89 (109) 97 08/19/17 19:25 96 Nasal Cannula 2.00 08/19/17 17:34 97.5 77 24 140/72 (94) 93 08/19/17 17:20 08/19/17 12:53 74 27 137/71 (93) 96 Nasal Cannula 08/19/17 12:39 Nasal Cannula 2.00 08/19/17 11:50 73 28 137/71 (93) 96 I/O 08/19/17 08/19/17 08/19/17 08/20/17 08/20/17 08/20/17 07:00 15:00 23:00 07:00 15:00 23:00 Output Total 850 ml Balance -850 ml Output Urine Total 850 ml # Voids 1 Result Diagram: 08/20/17 0530 08/20/17 0530 Imaging Last Impressions Chest X-Ray 08/19/17 0000 Signed Impressions: Service Date/Time: Saturday, August 19, 2017 11:54 - CONCLUSION: 1. Compensated cardiomegaly. 2. Lungs are clear. 3. No change from prior. Arvin Dsouza MD Objective Remarks GENERAL: This is a well-nourished, well-developed patient, in no apparent distress. SKIN: No rashes, ecchymoses or lesions. Cool and dry. CARDIOVASCULAR: Regular rate and rhythm without murmurs, gallops, or rubs. RESPIRATORY: Decreased breath sounds equal bilaterally. No wheezes, rales, or rhonchi. GASTROINTESTINAL: Abdomen soft, non-tender, nondistended. No guarding. MUSCULOSKELETAL: Extremities without clubbing, cyanosis, or edema. No joint tenderness, effusion, or edema noted. No calf tenderness. Negative Homans sign bilaterally. NEUROLOGICAL: Awake and alert. Cranial nerves II through XII intact. Motor and sensory grossly within normal limits. Five out of 5 muscle strength in all muscle groups. Normal speech. A/P Problem List: (1) CHF (congestive heart failure) ICD Code: I50.9 - Heart failure, unspecified Assessment and Plan Acute on chronic systolic CHF (congestive heart failure) with exacerbation patient had a recent ECHO that shows reduced EF from baseline. EF 20%. BNP in 300s. He is diuresing continue IV Lasix, KATHYA and beta-saeed. For cardiac catheterization Tuesday H/o CAD with triple bypass ct asa, plavix, BB and statin COPD exacerbation. Improved continue duonebs scheduled and as needed , switch to p.o. prednisone. MARIANO on CKD stage 3. Monitor closely while on diuretics. Avoid nephrotoxins Chronic medical conditions of hypertension and A. fib. BP uncontrolled IV Lasix has been started. As needed hydralazine continue to monitor DVT ppx scd/teds on home Xarelto Problem Qualifiers (1) CHF (congestive heart failure): Qualified Codes: I50.9 - Heart failure, unspecified Chadwick Montoya MD Aug 20, 2017 11:03
--- NOTE | 2017-08-20 13:39 | PD.CARD.PN ---
Subjective Subjective Remarks Doing better today No chest pain SOB better, urinating a lot overnight Objective Medications Current Medications Medications (Trade) Dose Ordered Sig/Tati Route Start Time Stop Time Status Last Admin (Norvasc) 10 mg DAILY PO 08/20/17 09:00 08/20/17 09:22 (Aspirin Chew) 81 mg DAILY PO 08/20/17 09:00 08/20/17 09:26 (Cymbalta Dr) 60 mg HS PO 08/19/17 21:00 08/19/17 22:09 (Vasotec) 2.5 mg DAILY PO 08/20/17 09:00 08/20/17 09:23 (Neurontin) 300 mg DAILY PO 08/20/17 09:00 08/20/17 09:22 (Neurontin) 600 mg HS PO 08/19/17 21:00 08/19/17 22:09 (Toprol Xl) 50 mg HS PO 08/19/17 21:00 08/19/17 22:09 (Xarelto) 20 mg DAILY PO 08/20/17 09:00 08/20/17 09:25 (Melatonin) 10 mg HS PRN PO 08/19/17 17:15 (Protonix) 20 mg DAILY PO 08/20/17 09:00 08/20/17 09:27 (NS Flush) 2 ml UNSCH PRN IV FLUSH 08/19/17 16:00 (NS Flush) 2 ml BID IV FLUSH 08/19/17 21:00 08/20/17 09:22 (Tylenol) 650 mg Q4H PRN PO 08/19/17 16:00 (Zofran Inj) 4 mg Q6H PRN IVP 08/19/17 16:00 (Narcan Inj) 0.4 mg UNSCH PRN IV PUSH 08/19/17 16:00 (Alyssa-Colace) 1 tab BID PO 08/19/17 21:00 08/20/17 09:26 (Milk Of Magnesia Liq) 30 ml Q12H PRN PO 08/19/17 16:00 (Senokot) 17.2 mg Q12H PRN PO 08/19/17 16:00 (Dulcolax Supp) 10 mg DAILY PRN RECTAL 08/19/17 16:00 (Lactulose Liq) 30 ml DAILY PRN PO 08/19/17 16:00 (D50w (Vial) Inj) 50 ml UNSCH PRN IV PUSH 08/19/17 16:15 (Glucagon Inj) 1 mg UNSCH PRN OTHER 08/19/17 16:15 (NovoLOG SUPPLEMENTAL SCALE) 1 ACHS SLIDING SCALE SQ 08/19/17 17:00 08/20/17 09:21 (Duoneb Neb) 1 ampule Q2HR NEB PRN NEB 08/19/17 18:00 (Ambien) 5 mg HS PRN PO 08/20/17 01:00 08/20/17 01:00 (Lasix Inj) 40 mg BID@ IV PUSH 08/20/17 09:00 08/20/17 09:22 (Duoneb Neb) 1 ampule TID NEB NEB 08/20/17 14:00 (Deltasone) 40 mg DAILY PO 08/20/17 15:00 08/23/17 14:59 Vital Signs / I&O Vital Signs Date Time Temp Pulse Resp B/P (MAP) Pulse Ox O2 Delivery O2 Flow Rate FiO2 08/20/17 07:29 97.8 86 16 177/80 (112) 94 08/20/17 04:01 81 08/20/17 03:55 98.0 79 18 164/77 (106) 93 08/19/17 23:10 98.5 96 18 127/60 (82) 92 08/19/17 20:00 98.4 68 20 149/89 (109) 97 08/19/17 19:25 96 Nasal Cannula 2.00 08/19/17 17:34 97.5 77 24 140/72 (94) 93 08/19/17 17:20 I/O 08/19/17 08/19/17 08/19/17 08/20/17 08/20/17 08/20/17 07:00 15:00 23:00 07:00 15:00 23:00 Output Total 850 ml Balance -850 ml Output Urine Total 850 ml # Voids 1 Physical Exam GENERAL: NAD, AAOx3, no longer with conversational dyspnea SKIN: Warm and dry. HEAD: Atraumatic. Normocephalic. EYES: Pupils equal and round. No scleral icterus. No injection or drainage. ENT: No nasal bleeding or discharge. Mucous membranes pink and moist. NECK: Trachea midline. No JVD. CARDIOVASCULAR: Irregularly irregular RESPIRATORY: No accessory muscle use. Decreased breath sounds bilaterally GASTROINTESTINAL: Abdomen soft, non-tender, nondistended. Hepatic and splenic margins not palpable. MUSCULOSKELETAL: Extremities without clubbing, cyanosis, or edema. No obvious deformities. NEUROLOGICAL: Awake and alert. No obvious cranial nerve deficits. Motor grossly within normal limits. Five out of 5 muscle strength in the arms and legs. Normal speech. PSYCHIATRIC: Appropriate mood and affect; insight and judgment normal. Laboratory Laboratory Tests Test 08/20/17 05:30 White Blood Count 4.6 TH/MM3 Red Blood Count 4.61 MIL/MM3 Hemoglobin 13.7 GM/DL Hematocrit 41.1 % Mean Corpuscular Volume 89.2 FL Mean Corpuscular Hemoglobin 29.8 PG Mean Corpuscular Hemoglobin Concent 33.4 % Red Cell Distribution Width 15.9 % Platelet Count 303 TH/MM3 Mean Platelet Volume 7.4 FL Neutrophils (%) (Auto) 77.6 % Lymphocytes (%) (Auto) 20.8 % Monocytes (%) (Auto) 1.5 % Eosinophils (%) (Auto) 0.0 % Basophils (%) (Auto) 0.1 % Neutrophils # (Auto) 3.5 TH/MM3 Lymphocytes # (Auto) 1.0 TH/MM3 Monocytes # (Auto) 0.1 TH/MM3 Eosinophils # (Auto) 0.0 TH/MM3 Basophils # (Auto) 0.0 TH/MM3 CBC Comment DIFF FINAL Differential Comment Blood Urea Nitrogen 20 MG/DL Creatinine 1.45 MG/DL Random Glucose 161 MG/DL Calcium Level 8.9 MG/DL Sodium Level 137 MEQ/L Potassium Level 4.3 MEQ/L Chloride Level 104 MEQ/L Carbon Dioxide Level 24.8 MEQ/L Anion Gap 8 MEQ/L Estimat Glomerular Filtration Rate 47 ML/MIN B-Type Natriuretic Peptide 507 PG/ML Assessment and Plan Problem List: (1) Acute on chronic systolic (congestive) heart failure ICD Codes: I50.23 - Acute on chronic systolic (congestive) heart failure (2) Cardiomyopathy ICD Codes: I42.9 - Cardiomyopathy, unspecified (3) Exertional dyspnea ICD Codes: R06.09 - Other forms of dyspnea Status: Acute (4) MARIANO (acute kidney injury) ICD Codes: N17.9 - Acute kidney failure, unspecified Status: Acute (5) Hypertension ICD Codes: I10 - Essential (primary) hypertension Status: Acute (6) CAD (coronary artery disease) ICD Codes: I25.10 - Atherosclerotic heart disease of [place] coronary artery without angina pectoris Status: Acute (7) Chronic atrial fibrillation ICD Codes: I48.2 - Chronic atrial fibrillation Status: Chronic Assessment and Plan 1) Acute on chronic heart failure, EF 20% Con't diuresis, will watch BUN/Creat Con't BB Just recently started on Entresto Place on Enalapril here, will have to stop and let it wash out before restarting Entresto, most likely on discharge 2) Drop in ejection fraction Previously around 40%, now down to 20% Plan on LHC/RHC on Tuesday to determine if ischemic cause and overall fluid status 3) Afib Controlled Xarelto held for anticipated LHC/RHC 4) Upon discharge follow up with Pierce Gutierrez DO Aug 20, 2017 13:39
[2017-08-20] MEDS: CLOPIDOGREL 75 MG TAB PO SCH (15:28)
[2017-08-20] MEDS: predniSONE 20 MG TAB PO SCH (15:28)
--- NOTE | 2017-08-20 15:33 | MB ---
cc: Pierce Arredondo DO DATE OF CONSULT: 08/19/2017 REASON FOR CONSULTATION: CHF exacerbation. HISTORY OF PRESENT ILLNESS: Carley Stoner is a pleasant 81-year-old male who sees my partner, Dr. Fletcher in the office and presented to [facility] emergency room on 08/19/2017 due to shortness of breath. Apparently, he had been more short of breath lately and underwent stress testing earlier this week in the office, which showed his ejection fraction had lowered down to about 22%. Apparently, the stress test showed most likely nonischemic etiology. He underwent an echo which also agreed with an ejection fraction down in the 20s. This is all new for him as his previous was somewhere around 40-45%. Overall, he states he has had no chest pain, but he continues to get short of breath with any type of moving around. He also gets short of breath whenever he is laying flat. He had an x-ray earlier this week that showed pleural effusion. Because of all this, he presented to the emergency room. In seeing him, he denies chest pain or palpitations, but does have significant shortness of breath with conversation. PAST MEDICAL HISTORY: 1. Coronary artery disease. 2. Acute on chronic systolic heart failure. 3. Hypertension. 4. Atrial fibrillation. PAST SURGICAL HISTORY: 1. Coronary artery bypass grafting (1992). 2. Cardiac catheterization (01/10/2017). Left main totally occluded near its origin. RCA totally occluded proximally. Vein graft to the diagonal totally occluded. Vein graft to OM with 75% lesion. DAMON to LAD is widely patent. PCI of vein graft to obtuse marginal with a Resolute drug-eluting stent (3.5 x 15). 3. Right CEA. 4. Hemorrhoidectomy. 5. Hernia surgery. 6. Right knee surgery. 7. Inguinal hernia repair. ALLERGIES: NO KNOWN DRUG ALLERGIES. MEDICATIONS: 1. Xarelto 20 mg daily. 2. Toprol XL 50 mg every night. 3. Norvasc 10 mg daily. 4. Enalapril 2.5 mg daily. 5. Aspirin 81 mg daily. 6. Gabapentin 300 mg daily, 600 mg at night. 7. Cymbalta 60 mg every night. 8. Ambien 5 mg every night. 9. Omeprazole 20 mg daily. 10. Glimepiride 1 mg daily. 11. Melatonin 10 mg every night. FAMILY HISTORY: Father had an KS at the age of 65. Brother lived to the age of 91. SOCIAL HISTORY: The patient has a history of socially using alcohol. He quit tobacco around 40 years ago. Denies drug abuse. REVIEW OF SYSTEMS: Fourteen systems were reviewed as above. Pertinent positives and negatives above, otherwise negative. PHYSICAL EXAMINATION: VITAL SIGNS: Temperature 97.5, heart rate 77, blood pressure 140/72, respirations 24, pulse ox 93% on 2 liters. GENERAL: The patient appears well, no acute distress but is noted to have conversational dyspnea. HEENT: Extraocular muscles intact. Mucous membranes moist. NECK: Supple with minimal JVD noted bilaterally. Carotid upstroke is brisk in nature. HEART: Irregularly irregular, positive first and second heart sounds with no noted murmurs, gallops or rubs. LUNGS: Have decreased breath sound bilaterally with notable rales at the bases. ABDOMEN: Soft, nontender, nondistended. No organomegaly noted. EXTREMITIES: Show no clubbing, cyanosis or edema. Femoral and distal pulses intact bilaterally. NEUROLOGIC: No focal deficits. SKIN: Warm, dry and intact. OSTEOPATHIC: No kyphoscoliosis, lordosis or paraspinal tender points. LABORATORY STUDIES: Hemoglobin 14.5, hematocrit 43.0, platelets 293. Potassium 4.4, BUN 18, creatinine 1.52. Troponin 0.02. BNP 360. Electrocardiogram (08/19/2017 at 1035) shows atrial fibrillation with controlled ventricular response, nonspecific ST-T wave changes. IMPRESSIONS: 1. Acute on chronic systolic heart failure. 2. 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 3. Coronary artery disease with a history of coronary artery bypass grafting x 3 as above. 4. Recent percutaneous coronary intervention. 5. Atrial fibrillation, on Xarelto therapy. 6. Hypertension. RECOMMENDATIONS: 1. Mr. Stoner appears to have acute on chronic systolic heart failure and he will be diuresed with IV Lasix. We will watch strict I and O's as well as clinically. 2. As he has a new onset cardiomyopathy, I feel it is reasonable for him to undergo right and left heart catheterization once stabilized to look for possible ischemia as a cause. For this, his Xarelto will need to be held. Tentatively, we will plan for Tuesday morning as long as his creatinine is stable and he is able to lay flat. 3. For his current heart failure, he was just started on Entresto before coming into the hospital. He has since been started on Enalapril here and so that will need to wash out and we can restart him on his Entresto either before he leaves or after discharge. 4. Further recommendations will be made based on the hospital course. 5. I am unsure at this time why he is off his Plavix, as his most recent PCI was 12/2016. This will be discussed with him and be restarted as necessary. Thank you for allowing me to see Carley Stoner. If there are any questions, please do not hesitate to call. Pierce Arredondo DO VGP/KD , 10:32 AM , 03:32 PM
[2017-08-20] MEDS ORDERED: hydrALAZINE HCL 20 MG/ML VIAL IV PUSH PRN (15:45)
[2017-08-20] MEDS: METOPROLOL SUCCINATE 50 MG EXTENDED RELEASE TAB PO SCH (20:06)
[2017-08-20] MEDS: DULoxetine HCl DR 60 MG CAP PO SCH (20:06)
--- NOTE | 2017-08-20 23:24 | EKG ---
Date Performed: 08/19/2017 Time Performed: 10:35:52 PTAGE: 81 years EKG: ATRIAL FIBRILLATION ABNORMAL QRS-T ANGLE ABNORMAL ECG PREVIOUS TRACING : 01/06/2017 09.55 Since the prior tracing, there has been no significant schwartz DOCTOR: Pierce Arredonod Interpretating Date/Time 08/20/2017 23:24:00
[2017-08-21] VITALS (10 sets, daily range): BP systolic 119–155; BP diastolic 62–76; PULSE 60–112; RESP 18–20; TEMP 97.7–98.5; O2SAT 96–97
--- NOTE | 2017-08-21 06:56 | HHI.PR ---
Subjective Remarks Follow-up heart failure. Improved shortness of breath. Diuresing well. Discussed with RN, hold diuretic and KATHYA secondary to worsening renal dysfunction Objective Vitals Vital Signs Date Time Temp Pulse Resp B/P (MAP) Pulse Ox O2 Delivery O2 Flow Rate FiO2 08/21/17 05:11 98.5 74 18 119/65 (83) 97 08/21/17 00:23 98.0 76 18 130/62 (84) 96 08/20/17 23:10 85 08/20/17 20:22 94 Nasal Cannula 2.00 08/20/17 20:00 98.9 86 18 148/72 (97) 95 08/20/17 17:43 97.8 78 16 136/66 (89) 96 08/20/17 12:42 97.8 53 18 127/67 (87) 98 08/20/17 07:29 97.8 86 16 177/80 (112) 94 I/O 08/20/17 08/20/17 08/20/17 08/21/17 08/21/17 08/21/17 07:00 15:00 23:00 07:00 15:00 23:00 Intake Total 220 ml Output Total 1550 ml 650 ml Balance -1550 ml -650 ml 220 ml Intake Oral 220 ml Output Urine Total 1550 ml 650 ml # Voids 2 Result Diagram: 08/20/17 0530 08/20/17 0530 Imaging Last Impressions Chest X-Ray 08/19/17 0000 Signed Impressions: Service Date/Time: Saturday, August 19, 2017 11:54 - CONCLUSION: 1. Compensated cardiomegaly. 2. Lungs are clear. 3. No change from prior. Arvin Dsouza MD Objective Remarks GENERAL: This is a well-nourished, well-developed patient, in no apparent distress. SKIN: No rashes, ecchymoses or lesions. Cool and dry. CARDIOVASCULAR: Regular rate and rhythm without murmurs, gallops, or rubs. RESPIRATORY: Decreased breath sounds equal bilaterally. No wheezes, rales, or rhonchi. GASTROINTESTINAL: Abdomen soft, non-tender, nondistended. No guarding. MUSCULOSKELETAL: Extremities without clubbing, cyanosis, or edema. No joint tenderness, effusion, or edema noted. No calf tenderness. Negative Homans sign bilaterally. NEUROLOGICAL: Awake and alert. Cranial nerves II through XII intact. Motor and sensory grossly within normal limits. Five out of 5 muscle strength in all muscle groups. Normal speech. A/P Problem List: (1) CHF (congestive heart failure) ICD Code: I50.9 - Heart failure, unspecified Assessment and Plan Acute on chronic systolic CHF (congestive heart failure) with exacerbation patient had a recent ECHO that shows reduced EF from baseline. EF 20%. BNP in 300s. He is diuresing well ct beta-saeed but will hold further diuresis and KATHYA inhibitor secondary to worsening renal function. For cardiac catheterization tomorrow H/o CAD with triple bypass ct asa, plavix, BB and statin COPD exacerbation. Improved continue duonebs scheduled and as needed , switch to p.o. prednisone. MARIANO on CKD stage 3. Worse. As previously mentioned we will hold diuresis and KATHYA inhibitor for now. Monitor closely while on diuretics. Avoid nephrotoxins Chronic medical conditions of hypertension and A. fib. BP improving. As needed hydralazine continue to monitor. DVT ppx scd/teds on home Xarelto Discharge Planning For cardiac catheterization in the morning if stable renal function Problem Qualifiers (1) CHF (congestive heart failure): Qualified Codes: I50.9 - Heart failure, unspecified Chadwick Montoya MD Aug 21, 2017 06:56
[2017-08-21 07:55] LABS: BICARBONATE 25.3 MEQ/L (21.0-32.0); CALCIUM 9.1 MG/DL (8.5-10.1); CREATININE 1.71 MG/DL (0.60-1.30); MAGNESIUM 2.6 MG/DL (1.5-2.5)
[2017-08-21] MEDS: INSULIN ASPART SUPPLEMENTAL SCALE SQ SCH ×4 (08:00→22:26)
[2017-08-21] MEDS: RESP: ALBUTEROL 2.5 MG/IPRATROPIUM 0.5 MG NEB (SCH) NEB ×3 (08:14→20:09)
[2017-08-21] MEDS: SODIUM CHLORIDE 0.9% FLUSH 10 ML FLUSH IV FLUSH SCH ×2 (09:41→22:25)
[2017-08-21] MEDS: GABAPENTIN 300 MG CAP PO SCH ×2 (09:42→22:25)
[2017-08-21] MEDS: CLOPIDOGREL 75 MG TAB PO SCH (09:43)
[2017-08-21] MEDS: PANTOPRAZOLE SOD 20 MG DELAYED RELEASE TAB PO SCH (09:43)
[2017-08-21] MEDS: predniSONE 20 MG TAB PO SCH (09:43)
[2017-08-21] MEDS: ASPIRIN 81 MG CHEW TAB PO SCH (09:43)
[2017-08-21] MEDS: DOCUSATE SODIUM 50 MG/SENNA 8.6 MG TAB PO SCH ×2 (09:44→21:00)
[2017-08-21] MEDS: POLYETHYLENE GLYCOL 17 GM PKG PO SCH (09:50)
[2017-08-21] MEDS: FUROSEMIDE 20 MG/2 ML VIAL IV PUSH SCH (10:11)
--- NOTE | 2017-08-21 12:42 | PD.CARD.PN ---
Subjective Subjective Remarks Doing better today No chest pain SOB better, urinating a lot overnight Still mildly SOB with walking to the bathroom, otherwise no complaints Objective Medications Current Medications Medications (Trade) Dose Ordered Sig/Tati Route Start Time Stop Time Status Last Admin (Norvasc) 10 mg DAILY PO 08/20/17 09:00 08/21/17 09:42 (Aspirin Chew) 81 mg DAILY PO 08/20/17 09:00 08/21/17 09:43 (Cymbalta Dr) 60 mg HS PO 08/19/17 21:00 08/20/17 20:06 (Neurontin) 300 mg DAILY PO 08/20/17 09:00 08/21/17 09:42 (Neurontin) 600 mg HS PO 08/19/17 21:00 08/20/17 20:06 (Toprol Xl) 50 mg HS PO 08/19/17 21:00 08/20/17 20:06 (Xarelto) 20 mg DAILY PO 08/20/17 09:00 Future Hold 08/20/17 09:25 (Melatonin) 10 mg HS PRN PO 08/19/17 17:15 (Protonix) 20 mg DAILY PO 08/20/17 09:00 08/21/17 09:43 (NS Flush) 2 ml UNSCH PRN IV FLUSH 08/19/17 16:00 (NS Flush) 2 ml BID IV FLUSH 08/19/17 21:00 08/21/17 09:41 (Tylenol) 650 mg Q4H PRN PO 08/19/17 16:00 (Zofran Inj) 4 mg Q6H PRN IVP 08/19/17 16:00 (Narcan Inj) 0.4 mg UNSCH PRN IV PUSH 08/19/17 16:00 (Alyssa-Colace) 1 tab BID PO 08/19/17 21:00 08/21/17 09:44 (Senokot) 17.2 mg Q12H PRN PO 08/19/17 16:00 (Dulcolax Supp) 10 mg DAILY PRN RECTAL 08/19/17 16:00 (Lactulose Liq) 30 ml DAILY PRN PO 08/19/17 16:00 (D50w (Vial) Inj) 50 ml UNSCH PRN IV PUSH 08/19/17 16:15 (Glucagon Inj) 1 mg UNSCH PRN OTHER 08/19/17 16:15 (NovoLOG SUPPLEMENTAL SCALE) 1 ACHS SLIDING SCALE SQ 08/19/17 17:00 08/20/17 21:55 (Duoneb Neb) 1 ampule Q2HR NEB PRN NEB 08/19/17 18:00 (Ambien) 5 mg HS PRN PO 08/20/17 01:00 08/20/17 21:44 (Duoneb Neb) 1 ampule TID NEB NEB 08/20/17 14:00 08/21/17 12:37 (Deltasone) 40 mg DAILY PO 08/20/17 15:00 08/23/17 14:59 08/21/17 09:43 (Plavix) 75 mg DAILY PO 08/20/17 14:30 08/21/17 09:43 (Apresoline Inj) 10 mg Q6H PRN IV PUSH 08/20/17 15:45 (Lasix Inj) 20 mg BID@ IV PUSH 08/21/17 09:00 08/21/17 10:11 (Miralax) 17 gm DAILY PO 08/21/17 09:00 08/21/17 09:50 Vital Signs / I&O Vital Signs Date Time Temp Pulse Resp B/P (MAP) Pulse Ox O2 Delivery O2 Flow Rate FiO2 08/21/17 11:44 98.2 80 20 140/62 (88) 96 08/21/17 08:19 97 21 08/21/17 08:19 97.9 86 20 142/70 (94) 96 08/21/17 05:11 98.5 74 18 119/65 (83) 97 08/21/17 00:23 98.0 76 18 130/62 (84) 96 08/20/17 23:10 85 08/20/17 20:22 94 Nasal Cannula 2.00 08/20/17 20:00 98.9 86 18 148/72 (97) 95 08/20/17 17:43 97.8 78 16 136/66 (89) 96 08/20/17 12:42 97.8 53 18 127/67 (87) 98 I/O 08/20/17 08/20/17 08/20/17 08/21/17 08/21/17 08/21/17 07:00 15:00 23:00 07:00 15:00 23:00 Intake Total 220 ml Output Total 1550 ml 650 ml Balance -1550 ml -650 ml 220 ml Intake Oral 220 ml Output Urine Total 1550 ml 650 ml # Voids 2 Physical Exam GENERAL: NAD, AAOx3, no longer with conversational dyspnea SKIN: Warm and dry. HEAD: Atraumatic. Normocephalic. EYES: Pupils equal and round. No scleral icterus. No injection or drainage. ENT: No nasal bleeding or discharge. Mucous membranes pink and moist. NECK: Trachea midline. No JVD. CARDIOVASCULAR: Irregularly irregular RESPIRATORY: No accessory muscle use. Decreased breath sounds bilaterally GASTROINTESTINAL: Abdomen soft, non-tender, nondistended. Hepatic and splenic margins not palpable. MUSCULOSKELETAL: Extremities without clubbing, cyanosis, or edema. No obvious deformities. NEUROLOGICAL: Awake and alert. No obvious cranial nerve deficits. Motor grossly within normal limits. Five out of 5 muscle strength in the arms and legs. Normal speech. PSYCHIATRIC: Appropriate mood and affect; insight and judgment normal. Laboratory Laboratory Tests Test 08/21/17 05:20 Blood Urea Nitrogen 35 MG/DL Creatinine 1.71 MG/DL Random Glucose 142 MG/DL Calcium Level 9.1 MG/DL Magnesium Level 2.6 MG/DL Sodium Level 138 MEQ/L Potassium Level 4.2 MEQ/L Chloride Level 102 MEQ/L Carbon Dioxide Level 25.3 MEQ/L Anion Gap 11 MEQ/L Estimat Glomerular Filtration Rate 39 ML/MIN Assessment and Plan Problem List: (1) Acute on chronic systolic (congestive) heart failure ICD Codes: I50.23 - Acute on chronic systolic (congestive) heart failure (2) Cardiomyopathy ICD Codes: I42.9 - Cardiomyopathy, unspecified (3) Exertional dyspnea ICD Codes: R06.09 - Other forms of dyspnea Status: Acute (4) MARAINO (acute kidney injury) ICD Codes: N17.9 - Acute kidney failure, unspecified Status: Acute (5) Hypertension ICD Codes: I10 - Essential (primary) hypertension Status: Acute (6) CAD (coronary artery disease) ICD Codes: I25.10 - Atherosclerotic heart disease of [place] coronary artery without angina pectoris Status: Acute (7) Chronic atrial fibrillation ICD Codes: I48.2 - Chronic atrial fibrillation Status: Chronic Assessment and Plan 1) Acute on chronic heart failure, EF 20% Con't diuresis, BUN/Creat increased Will hold diuretic today and tomorrow morning Enalapril held due to increased BUN/Creat Con't BB Patient though he was on Entresto outpatient, but review of the office notes shows he was started on Enalapril outpatient 2) Drop in ejection fraction Previously around 40%, now down to 20% Plan on LHC/RHC on Tuesday to determine if ischemic cause and overall fluid status As long as kidney function stable or better 3) Afib Controlled Xarelto held for anticipated LHC/RHC 4) Upon discharge follow up with Pierce Gutierrez DO Aug 21, 2017 12:41
[2017-08-21] MEDS: DULoxetine HCl DR 60 MG CAP PO SCH (22:24)
[2017-08-21] MEDS: METOPROLOL SUCCINATE 50 MG EXTENDED RELEASE TAB PO SCH (22:24)
[2017-08-21] MEDS: ZOLPIDEM TARTRATE 5 MG TAB PO PRN (22:42)
[2017-08-22] VITALS (11 sets, daily range): BP systolic 130–142; BP diastolic 61–85; PULSE 84–104; RESP 16–20; TEMP 97.4–98; O2SAT 93–98
[2017-08-22] MEDS: RESP: ALBUTEROL 2.5 MG/IPRATROPIUM 0.5 MG NEB (SCH) NEB ×2 (07:37→20:25)
[2017-08-22] MEDS: INSULIN ASPART SUPPLEMENTAL SCALE SQ SCH ×4 (08:00→21:00)
--- NOTE | 2017-08-22 08:21 | HHI.PR ---
Subjective Remarks In bed says he is still with sob and minimal effort makes him sob. He denies chest pain or pressure. No n/v/d/c. Had a BM . Has a nonproductive cough and feels he is congested. No wheezing. Says he is putting out large amount of urine Objective Vitals Vital Signs Date Time Temp Pulse Resp B/P (MAP) Pulse Ox O2 Delivery O2 Flow Rate FiO2 08/22/17 08:13 97.4 84 18 132/76 (94) 95 08/22/17 07:39 Nasal Cannula 2.00 08/22/17 03:58 97.9 96 20 130/75 (93) 98 08/22/17 02:58 95 08/22/17 00:19 92 08/21/17 23:20 97.8 98 20 145/76 (99) 97 08/21/17 22:28 100 97 08/21/17 22:28 97 Nasal Cannula 2.00 08/21/17 21:10 112 08/21/17 20:40 96 08/21/17 19:34 97.7 97 20 155/69 (97) 97 08/21/17 16:29 97.9 80 20 138/68 (91) 96 08/21/17 11:44 98.2 80 20 140/62 (88) 96 I/O 08/21/17 08/21/17 08/21/17 08/22/17 08/22/17 08/22/17 06:59 14:59 22:59 06:59 14:59 22:59 Intake Total 220 ml Output Total 1010 ml 1200 ml Balance 220 ml -1010 ml -1200 ml Intake Oral 220 ml Output Urine Total 1010 ml 1200 ml # Voids 2 Result Diagram: 08/20/17 0530 08/21/17 0520 Imaging Last Impressions Chest X-Ray 08/19/17 0000 Signed Impressions: Service Date/Time: Saturday, August 19, 2017 11:54 - CONCLUSION: 1. Compensated cardiomegaly. 2. Lungs are clear. 3. No change from prior. Arvin Dsouza MD Objective Remarks GENERAL: This is a well-nourished, well-developed patient, coughing with some sob SKIN: No rashes, ecchymoses or lesions. Cool and dry. CARDIOVASCULAR: Regular rate and rhythm without murmurs, gallops, or rubs. RESPIRATORY: Decreased breath sounds equal bilaterally. No wheezes, rales, or rhonchi. GASTROINTESTINAL: Abdomen soft, non-tender, nondistended. No guarding. MUSCULOSKELETAL: Extremities without clubbing, cyanosis, or edema. No joint tenderness, effusion, or edema noted. No calf tenderness. Negative Homans sign bilaterally. NEUROLOGICAL: Awake and alert. Cranial nerves II through XII intact. Motor and sensory grossly within normal limits. Five out of 5 muscle strength in all muscle groups. Normal speech. A/P Problem List: (1) CHF (congestive heart failure) ICD Code: I50.9 - Heart failure, unspecified Assessment and Plan Acute on chronic systolic CHF (congestive heart failure) with exacerbation patient had a recent ECHO that shows reduced EF from baseline. EF 20%. BNP in 300s on admission. He is diuresing well continue beta-saeed but will hold further diuresis and KATHYA inhibitor secondary to worsening renal function. For cardiac catheterization. H/o CAD with triple bypass ct asa, plavix, BB and statin COPD exacerbation. Improved continue duonebs scheduled and as needed , switch to p.o. prednisone. MARIANO on CKD stage 3. Worsened yesterday, labs pending today. As previously mentioned we will hold diuresis and KATHYA inhibitor for now. Monitor closely while on diuretics. Avoid nephrotoxins Chronic medical conditions of hypertension and A. fib. BP improving. As needed hydralazine continue to monitor. DVT ppx scd/teds on home Xarelto Discharge Planning Plan for cardiac catheterization 08/22 Discussed with the patient,nurse Problem Qualifiers (1) CHF (congestive heart failure): Qualified Codes: I50.9 - Heart failure, unspecified Megha Richards MD Aug 22, 2017 08:21
[2017-08-22] MEDS: POLYETHYLENE GLYCOL 17 GM PKG PO SCH (09:00)
[2017-08-22] MEDS: DOCUSATE SODIUM 50 MG/SENNA 8.6 MG TAB PO SCH ×2 (09:00→21:39)
[2017-08-22 09:21] LABS: BICARBONATE 27.4 MEQ/L (21.0-32.0); CREATININE 1.42 MG/DL (0.60-1.30); MAGNESIUM 2.5 MG/DL (1.5-2.5)
[2017-08-22] MEDS: SODIUM CHLORIDE 0.9% FLUSH 10 ML FLUSH IV FLUSH SCH ×2 (10:06→21:39)
[2017-08-22] MEDS: ASPIRIN 81 MG CHEW TAB PO SCH (10:07)
[2017-08-22] MEDS: PANTOPRAZOLE SOD 20 MG DELAYED RELEASE TAB PO SCH (10:07)
[2017-08-22] MEDS: CLOPIDOGREL 75 MG TAB PO SCH (10:08)
[2017-08-22] MEDS: predniSONE 20 MG TAB PO SCH (10:08)
[2017-08-22] MEDS: GABAPENTIN 300 MG CAP PO SCH ×2 (10:13→21:39)
[2017-08-22] MEDS ORDERED: MIDAZOLAM HCL 2 MG/2 ML VIAL ONE (10:52)
[2017-08-22] MEDS ORDERED: HEPARIN SODIUM - IV 10,000 UNITS/10 ML VIAL ONE (11:02)
[2017-08-22] MEDS ORDERED: VERAPAMIL HCL 5 MG/2 ML VIAL ONE (11:02)
[2017-08-22] MEDS ORDERED: NITROGLYCERIN INJ 5 ML ONE (11:04)
[2017-08-22] MEDS ORDERED: MISC INFORMATION XX ONE (12:15)
--- NOTE | 2017-08-22 12:15 | CATHPROC ---
[place] HIS Report Study Information Study Number Admission Scheduled Start Study Start [id number] Aug 19 2017 3:17PM 08/21/2017 Aug 22 2017 10:25AM [place] Service Cardiac Catheterization Admit Source Facility Department Emergency department [facility] - Wet Washer Machine Physician and Clinical Staff Initial Pierce Renee Assembly Inspector Amandeep Cabrera RN Assembly Inspector Kamari Lao RN Other cathlab, cathlab Recorder Chucho Hollins RCIS(BS) Scrub Dolores Ballesteros ,RT(R) Procedures Performed Procedure Location (Site) Vessel Name Coronary Angiograms RCA Right Coronary Coronary Angiograms DAMON-LAD Left Coronary Coronary Angiograms SVG-OM CIRC Coronary Angiograms Subclav. Vein (Rt) Subclavian Vein Wire insertion Forearm (right) Extremity Equipment Time Ancillary Services Manager Description Size Mfg Part Number Used/Scraped WIRE, WHISPER W/HYDROCOAT [id number] 11:27 [employer] 190CM Used 190CM *[id number] CATHETER, FR5 SWAN VERA 10:25 Pure[employer] BIRD FR 5 [id number] *[id number] Used MONITOR TRANSDUCER, TRUWAVE [id number] 10:25 CHI BIRD * Used W/STOCKCOCK *[id number] *[id number] [id number] *[id number] 10:25 [employer] PACK, CCL CUSTOM * Used *[id number] 10:25 [employer] SUPPORT, ARTERIAL ADULT 99611 *[id number] Used [id number] 11:45 MEDTRONIC IM DXTERITY CATHETER FR 5 Used *[id number] BAND, RADIAL COMPRESSION TR [id number] 11:59 [employer] MEDICAL 29CM Used LARGE 29 *[id number] 10:25 [employer] WIRE, EXCHANGE 260CM 3MMJ 260CM Used *[id number] 10:25 NAMIC MANIFOLD, 4 PORT * Used *[id number] 10:25 NYCOMED OMNIPAQUE, 350 MG, 150ML 150ML [id number] Used [id number] 10:25 WERNER MEDICAL BLANKET,WARM AIR CCL * Used *[id number] SHEATH, FR6 TRANSRADIAL [id number] 10:25 TERUMO MEDICAL FR 6 Used SLENDER 10CM *[id number] SHEATH, FR6 TRANSRADIAL RM*[id number] 10:25 TERUMO MEDICAL FR 6 Used SLENDER 10CM *[id number] History: Current Medications Medication Dosage/Unit Route Frequency Last Date/Time Taken Statins (any) ASA LISINOPRIL Beta Ronnie NORVASC PLAVIX XARELTO History: Allergies Allergy Reaction No Known Allergies History: Risk Factors Family History of Hypertension Dyslipidemia Previous MO Previous Heart Failure Premature CAD Yes Yes Yes Yes Yes Prior Valve Prior PCI Prior CABG Prior CABGDate Surgery No No Yes 06/13/1992 Cerebrovascular 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 Diabetes Diabetes Therapy Disease Disease Disease No Yes No Yes Yes Oral History: Symptoms/Diagnosis Selection Items SOB History: CV Disease Selection Items Known CAD MO History: Stress Tests Stress or Imaging Studies Performed No History: Arrhythmias Selection Items Atrial fibrillation History: Other Disease Selection Items CAD CHF HTN History: Other Current Smoker Method Quit Packs a Day Years Used Pack Years No Cigarettes 40 Years Ago 1 35 35 Labs Hgb (g/dl) Hct (%) WBC (l/cumm) Platelets (thousands) 11.60-17.00 35.00-51.00 4.00-11.00 150.00-450.00 13.7 41.1 4.6 303 Glucose (mg/dl) BUN (mg/dl) Creatinine (mg/dl) BUN:Creatinine (1:x) 74.00-106.00 7.00-18.00 0.50-1.30 10.00-20.00 83 32 1.4 22.9 Na (meq/l) K (meq/l) 136.00-145.00 3.50-5.10 139 3.8 CPK-MB (ng/ML) 0.50-3.60 Not Drawn Medication Medication Total Dose (Bolus/Oral) Medication Total Dosage/Unit 1% XYLOCAINE 2 mL FENTANYL 50 mcg RADIAL COCKTAIL 5 mL (Bolus) Medications (Bolus/Oral) Medication Time Given Dosage/Unit Administered By Reason FENTANYL 08/22/2017 11:06:11 AM 50 mcg Kamari Lao 50 mcg FENTANYL given in lab by Kamari Lao RN in Left Forearm via Peripheral IV. Ordered by Pierce Elias. 1% XYLOCAINE 08/22/2017 11:12:04 AM 2 mL Pierce Arredondo 2 mL 1% XYLOCAINE given in lab by Pierce Arredondo in Left Radial via Subcutaneous. Ntg 200mcg Verapamil 2.5mg Heparin RADIAL COCKTAIL 08/22/2017 11:17:34 AM 5 mL (Bolus) Pierce Arredondo 3000U 5 mL (Bolus) RADIAL COCKTAIL given in lab by Pierce Arredondo in Left Radial via Radial. Using [So lution Name]. Reason: Ntg 200mcg Verapamil 2.5mg Heparin 3000U. Medication (Drip) Medication Time Given Dosage/Unit Concentration/Unit Diluent (ml) Solution IV Solutions 08/22/2017 10:30:35 AM 0 mL (IV) 500 NaCl .9 Patient arrived on IV Solutions in Right Forearm via Peripheral IV. Pump/Drip Flow = 20 ml/hr using N aCl .9. Ordered by Pierce Arredondo. Final Case Assessment Cardiovascular HR Rhythm 82 sr Edema Present Skin color Skin None Normal Warm Dry Circulatory - Right Pulses Dorsalis Pedis Femoral 2 2 Scale (0,1,2,3,4,d) Circulatory - Left Pulses Dorsalis Pedis Femoral 2 2 Scale (0,1,2,3,4,d) Circulatory - Lower Extremities Color Lower Right Color Lower Left Normal Normal Neurological State Oriented to time-place- Alert Moves all extremities person Respiration - General Respiration Rate SpO2 (%) (B/min) 21 92 Chronological Log Time Study Chronological Log 10:30:21 Patient arrived via Bed. 10:30:22 Patient Name, D.O.B, / Armband Verified By R.N. 10:30:23 Consent signed by the physician and the patient and verified by the Wet [facility] staff. 10:30:25 Pre-op and post- op instructions given; patient acknowledges understanding of instructions. 10:30:25 Verbal Stimulation=2 Physical Stimulation=2 Airway=2 Respiration=2 TOTAL=8. (0=absent, 1=li mited, 2=present) 10:30:26 Presedation assessment performed by Wet Washer Machine RN. 10:30:28 Allens test performed on the left radial and ulnar artery. 10:30:29 Immediate Presedation assesment performed by physician. 10:30:30 Patient has been NPO for More than 6Hrs. 10:30:30 Skin Breakdown- none per patient 10:30:32 Patient Warmer Placed on the Table. 10:30:33 Karly Prominences Protected 10:30:34 A # 20 IV was noted in the Forearm (right). Grade = 0 Patient arrived on IV Solutions in Right Forearm via Peripheral IV. Pump/Drip Flow = 20 ml/hr u sing NaCl .9. Ordered 10:30:35 by Pierce Arredondo. 10:30:35 History and physical on the chart or being dictated. 10:48:48 A # 20 IV was noted in the Forearm (left). Grade = 0 acces was obtained in the lab 10:59:00 Left radial, right brachial, and groin(s) prepped with 2% chlorhexidine, and draped after a 3 min. waiting time. 10:59:19 MD paged 11:00:03 Reference ECG taken Vitals capture started with the following parameters, Patient=Adult, Interval=5 min, Initial Pr tmeqzc=504 mmHg, 11:00:15 Deflation Rate=5 mmHg, Cuff placed on Right Arm 11:00:48 HR=88 bpm, XCFT=991/48 mmhg, SpO2=94.0 %, Resp=16 B/min, Pain=0, Aj=10, Brennan=2 11:01:20 MD responded 11:02:17 MD arrived. 11:02:25 Contrast Scanned 11:02:26 Immediate Presedation assesment performed by physician. 11:05:36 Immediate Presedation assesment performed by physician. 11:06:11 50 mcg FENTANYL given in lab by Kamari Lao RN in Left Forearm via Peripheral IV. Ordered by Pierce Arredondo. 11:06:20 HR=96 bpm, SLDG=220/77 mmhg, SpO2=95.0 %, Resp=18 B/min, Pain=0, Aj=10, Brennan=2 11:07:14 Pressure channel 1 zeroed. Time Out. Correct patient, correct procedure, correct physician, power injector loaded, or not loaded with contrast with 11:09:55 surgical team present. Time Out Concurred by MD and individual staff in procedure. 11:10:00 Case Start 11:10:53 HR=85 bpm, CJSS=243/96 mmhg, SpO2=93.0 %, Resp=18 B/min, Pain=0, Aj=10, Brennan=2 11:12:04 2 mL 1% XYLOCAINE given in lab by Pierce Arredondo in Left Radial via Subcutaneous. 11:15:56 HR=94 bpm, YHEX=981/80 mmhg, SpO2=92.0 %, Resp=17 B/min, Pain=0, Aj=10, Brennan=2 11:17:05 Access site was left Radial Artery. A SHEATH, FR6 TRANSRADIAL SLENDER 10CM FR 6 was advanced into the Radial (left) using the Gualberto dixon 11:17:27 technique. 5 mL (Bolus) RADIAL COCKTAIL given in lab by Pierce Arredondo in Left Radial via Radial. Michael drummond [Solution Name]. 11:17:34 Reason: Ntg 200mcg Verapamil 2.5mg Heparin 3000U. 11:20:25 #20 IV right brachial exchanged for TERUMO SLENDER SHEATH. 11:20:57 HR=87 bpm, TSGM=994/57 mmhg, SpO2=84.0 %, Resp=18 B/min A CATHETER, FR5 SWAN VERA MONITOR FR 5 was advanced over a wire. OMNIPAQUE, 350 MG, 150ML 150ML was 11:20:57 used for injections. 11:25:54 HR=87 bpm, YACS=707/56 mmhg, SpO2=91.0 %, Resp=17 B/min, Pain=0, Aj=10, Brennan=2 11:26:15 The Subclav. Vein (Rt) was injected and visualized at various angles. OMNIPAQUE, 350 MG, 15 0ML 150ML used. 11:27:00 A WIRE, WHISPER W/HYDROCOAT 190CM 190CM was inserted via Forearm (right). 11:29:05 Wire removed 11:30:53 HR=88 bpm, MATZ=502/80 mmhg, SpO2=90.0 %, Resp=15 B/min, Pain=0, Aj=10, Brennan=2 Recorded Pressure: PCW, HR=86, Condition=Condition 1 11:30:58 (Pulmonary Capillary Wedge) PCW 40/43/35 11:33:49 Saturation: Site=PA (Pulmonary Artery) , O2=64.9 %, Hgb=13.7 gm/dl, Condition=Condition 1. Used in calculation. Recorded Pressure: MPA, HR=92, Condition=Condition 1 11:34:39 (Main Pulmonary Artery) MPA 43/23/34 11:34:45 Saturation: Site=Ao (Aorta) , O2=92.2 %, Hgb=13.7 gm/dl, Condition=Condition 1. Used in ladan culation. Recorded Pressure: RV, HR=62, Condition=Condition 1 11:35:51 (Right Ventricle) RV 43/7/13 11:35:54 HR=59 bpm, LOII=520/74 mmhg, SpO2=89.0 %, Resp=17 B/min, Pain=0, Aj=10, Brennan=2 Recorded Pressure: RA, HR=87, Condition=Condition 1 11:36:11 (Right Atrium) RA 11:36:27 [place] Vera Catheter Removed A JR 4.0 INFINITI CATHETER FR 5 was advanced over a wire. OMNIPAQUE, 350 MG, 150ML 150ML was us ed for 11:36:52 injections. 11:40:57 HR=96 bpm, KEGW=415/71 mmhg, SpO2=87.0 %, Resp=16 B/min, Pain=0, Aj=10, Brennan=2 Recorded Pressure: LV, HR=95, Condition=Condition 1 11:43:22 (Left Ventricle) LV 135/15/25 Recorded Pressure: LV, Ao, HR=90, Condition=Condition 1 11:43:50 (Left Ventricle) LV 132/16/26, (Aorta) Ao 134/70/98 11:44:31 The RCA was injected and visualized at various angles. OMNIPAQUE, 350 MG, 150ML 150ML used . 11:45:56 HR=79 bpm, HQRL=794/75 mmhg, SpO2=90 %, Resp=16 B/min, Pain=0, Aj=10, Brennan=2 11:46:25 The SVG-OM was injected and visualized at various angles. OMNIPAQUE, 350 MG, 150ML 150ML us ed. 11:50:57 HR=93 bpm, OZHX=840/75 mmhg, SpO2=88 %, Resp=15 B/min, Pain=0, Aj=10, Brennan=2 After removing the current catheter a IM DXTERITY CATHETER FR 5 was advanced over a WIRE, EXCHA NGE 260CM 11:51:59 3MMJ 260CM. 11:55:22 The DAMON-LAD was injected and visualized at various angles. OMNIPAQUE, 350 MG, 150ML 150ML used. 11:56:00 HR=97 bpm, YDGE=630/58 mmhg, SpO2=92.0 %, Resp=26 B/min, Pain=0, Aj=10, Brennan=2 11:56:48 Catheter(s) removed without difficulty 11:57:25 A Left and Right Heart Cath was performed. 11:57:48 Activated Clotting Time Drawn Radial Compression Device Used. 9 mLs of air placed in BAND, RADIAL COMPRESSION TR LARGE 29 29C M. Affected 11:58:47 hand 97 % O2 saturation. 12:00:32 Case End Assessment: Final Case, HR=82 BPM, Rhythm=sr, Edema=None, Color=Normal, Skin = Warm, Dry Right Pulses: Suraj Ped=2, Femoral=2 Left Pulses: Suraj Ped=2, Femoral=2, Radial=2 12:00:34 Lower Right Extremities: Color=Normal Lower Left Extremities: Color=Normal Neurological: State=Alert, Ox3, ARAUJO Respiration: Resp=21 B/min, SpO2=92 % 12:00:55 HR=91 bpm, SMRY=349/78 mmhg, SpO2=88.0 %, Resp=16 B/min, Pain=0, Aj=10, Brennan=2 12:01:48 Venous Sheath(s) left in place, will be removed in Holding Area 12:02:55 ACT (Normal Range 90-180) = ~ACT~ 12:03:10 Sterile dressing applied to site 12:03:11 No case complications noted. 12:03:13 Cine recording checked. 12:03:19 Bedside Report will be given. 12:05:50 HR=89 bpm, PZIU=079/57 mmhg, Resp=17 B/min, Pain=0, Aj=10, Brennan=2 12:08:30 Patient moved to stretcher 12:10:48 Vitals capture stopped. End Study - Contrast Media Used In Study Contrast Total Opened (mL) Total Used (mL) Total Wasted (mL) Omnipaque 70 70 0 End Study - Maximum Contrast Load Max Contrast Load (mL) 353.6 End Study - Radiation Exposure Fluoro Time (minutes) 10.2 End Study - Patient Disposition Complications Transferred To No Wet Washer Machine Holding
[2017-08-22] MEDS ORDERED: PHENYLEPHRINE HCL 10 MG/ML VIAL ONE (13:20)
--- NOTE | 2017-08-22 17:13 | PD.CARD.PN ---
Subjective Subjective Remarks No chest pain SOB better, urinating a lot overnight Still mildly SOB with walking to the bathroom, otherwise no complaints Post-cath Objective Medications Current Medications Medications (Trade) Dose Ordered Sig/Tati Route Start Time Stop Time Status Last Admin (Norvasc) 10 mg DAILY PO 08/20/17 09:00 08/22/17 10:08 (Aspirin Chew) 81 mg DAILY PO 08/20/17 09:00 08/22/17 10:07 (Cymbalta Dr) 60 mg HS PO 08/19/17 21:00 08/21/17 22:24 (Neurontin) 300 mg DAILY PO 08/20/17 09:00 08/22/17 10:13 (Neurontin) 600 mg HS PO 08/19/17 21:00 08/21/17 22:25 (Toprol Xl) 50 mg HS PO 08/19/17 21:00 08/21/17 22:24 (Melatonin) 10 mg HS PRN PO 08/19/17 17:15 (Protonix) 20 mg DAILY PO 08/20/17 09:00 08/22/17 10:07 (NS Flush) 2 ml UNSCH PRN IV FLUSH 08/19/17 16:00 (NS Flush) 2 ml BID IV FLUSH 08/19/17 21:00 08/22/17 10:06 (Tylenol) 650 mg Q4H PRN PO 08/19/17 16:00 (Zofran Inj) 4 mg Q6H PRN IVP 08/19/17 16:00 (Narcan Inj) 0.4 mg UNSCH PRN IV PUSH 08/19/17 16:00 (Alyssa-Colace) 1 tab BID PO 08/19/17 21:00 08/21/17 09:44 (Senokot) 17.2 mg Q12H PRN PO 08/19/17 16:00 (Dulcolax Supp) 10 mg DAILY PRN RECTAL 08/19/17 16:00 (Lactulose Liq) 30 ml DAILY PRN PO 08/19/17 16:00 (D50w (Vial) Inj) 50 ml UNSCH PRN IV PUSH 08/19/17 16:15 (Glucagon Inj) 1 mg UNSCH PRN OTHER 08/19/17 16:15 (NovoLOG SUPPLEMENTAL SCALE) 1 ACHS SLIDING SCALE SQ 08/19/17 17:00 08/22/17 17:00 (Duoneb Neb) 1 ampule Q2HR NEB PRN NEB 08/19/17 18:00 (Ambien) 5 mg HS PRN PO 08/20/17 01:00 08/21/17 22:42 (Duoneb Neb) 1 ampule TID NEB NEB 08/20/17 14:00 08/22/17 07:37 (Deltasone) 40 mg DAILY PO 08/20/17 15:00 08/23/17 14:59 08/22/17 10:08 (Plavix) 75 mg DAILY PO 08/20/17 14:30 08/22/17 10:08 (Apresoline Inj) 10 mg Q6H PRN IV PUSH 08/20/17 15:45 (Lasix Inj) 20 mg BID@18 IV PUSH 08/21/17 09:00 Future hold 08/21/17 10:11 (Miralax) 17 gm DAILY PO 08/21/17 09:00 08/21/17 09:50 Vital Signs / I&O Vital Signs Date Time Temp Pulse Resp B/P (MAP) Pulse Ox O2 Delivery O2 Flow Rate FiO2 08/22/17 12:12 95 Room Air 08/22/17 08:13 97.4 84 18 132/76 (94) 95 08/22/17 08:00 Nasal Cannula 2.00 08/22/17 07:39 Nasal Cannula 2.00 08/22/17 03:58 97.9 96 20 130/75 (93) 98 08/22/17 02:58 95 08/22/17 00:19 92 08/21/17 23:20 97.8 98 20 145/76 (99) 97 08/21/17 22:28 100 97 08/21/17 22:28 97 2.00 08/21/17 22:28 97 Nasal Cannula 2.00 08/21/17 21:10 112 08/21/17 20:40 96 08/21/17 19:34 97.7 97 20 155/69 (97) 97 I/O 08/21/17 08/21/17 08/21/17 08/22/17 08/22/17 08/22/17 07:00 15:00 23:00 07:00 15:00 23:00 Intake Total 220 ml Output Total 1010 ml 1200 ml Balance 220 ml -1010 ml -1200 ml Intake Oral 220 ml Output Urine Total 1010 ml 1200 ml # Voids 2 Physical Exam GENERAL: NAD, AAOx3, no longer with conversational dyspnea SKIN: Warm and dry. HEAD: Atraumatic. Normocephalic. EYES: Pupils equal and round. No scleral icterus. No injection or drainage. ENT: No nasal bleeding or discharge. Mucous membranes pink and moist. NECK: Trachea midline. No JVD. CARDIOVASCULAR: Irregularly irregular RESPIRATORY: No accessory muscle use. Decreased breath sounds bilaterally GASTROINTESTINAL: Abdomen soft, non-tender, nondistended. Hepatic and splenic margins not palpable. MUSCULOSKELETAL: Extremities without clubbing, cyanosis, or edema. No obvious deformities. NEUROLOGICAL: Awake and alert. No obvious cranial nerve deficits. Motor grossly within normal limits. Five out of 5 muscle strength in the arms and legs. Normal speech. PSYCHIATRIC: Appropriate mood and affect; insight and judgment normal. Laboratory Laboratory Tests Test 08/22/17 06:51 Blood Urea Nitrogen 32 MG/DL Creatinine 1.42 MG/DL Random Glucose 83 MG/DL Calcium Level 9.0 MG/DL Magnesium Level 2.5 MG/DL Sodium Level 139 MEQ/L Potassium Level 3.8 MEQ/L Chloride Level 102 MEQ/L Carbon Dioxide Level 27.4 MEQ/L Anion Gap 10 MEQ/L Estimat Glomerular Filtration Rate 48 ML/MIN Assessment and Plan Problem List: (1) Acute on chronic systolic (congestive) heart failure ICD Codes: I50.23 - Acute on chronic systolic (congestive) heart failure (2) Cardiomyopathy ICD Codes: I42.9 - Cardiomyopathy, unspecified (3) Exertional dyspnea ICD Codes: R06.09 - Other forms of dyspnea Status: Acute (4) MARIANO (acute kidney injury) ICD Codes: N17.9 - Acute kidney failure, unspecified Status: Acute (5) Hypertension ICD Codes: I10 - Essential (primary) hypertension Status: Acute (6) CAD (coronary artery disease) ICD Codes: I25.10 - Atherosclerotic heart disease of tetlin coronary artery without angina pectoris Status: Acute (7) Chronic atrial fibrillation ICD Codes: I48.2 - Chronic atrial fibrillation Status: Chronic Assessment and Plan 1) Acute on chronic heart failure, EF 20% Will restart Lasix tonight after cath Con't BB Patient thought he was on Entresto outpatient, but review of the office notes shows he was started on Enalapril outpatient but already on Losartan Has had a cough, most likely not due to Enalapril, but since he's been on Losartan will continue that instead of Enalapril 2) Drop in ejection fraction Previously around 40%, now down to 20% NICM, no significant change in coronary artery disease Left side filling pressures still high, con't diuresis 3) Afib Controlled Xarelto held for anticipated LHC/RHC Restart tomorrow 4) Upon discharge follow up with Dr. Fletcher Repeat echo in 3 months to evaluate for ICD Pierce Arredondo DO Aug 22, 2017 17:13
[2017-08-22] MEDS: FUROSEMIDE 20 MG/2 ML VIAL IV PUSH SCH (18:26)
[2017-08-22] MEDS: METOPROLOL SUCCINATE 50 MG EXTENDED RELEASE TAB PO SCH (21:39)
[2017-08-22] MEDS: DULoxetine HCl DR 60 MG CAP PO SCH (21:39)
[2017-08-22] MEDS: ZOLPIDEM TARTRATE 5 MG TAB PO PRN (22:04)
[2017-08-23] VITALS (29 sets, daily range): BP systolic 96–159; BP diastolic 67–93; PULSE 63–110; RESP 17–22; TEMP 97.9–99; O2SAT 93–100
[2017-08-23 05:36] LABS: AUTOMATED NEUTROPHIL # 7.1 TH/MM3 (1.8-7.7); BASOPHIL % 0.2 % (0.0-2.0); EOSINOPHIL # 0.1 TH/MM3 (0-0.4); EOSINOPHIL % 1.1 % (0.0-4.0); HEMATOCRIT 40.4 % (39.0-51.0); HEMOGLOBIN 13.3 GM/DL (13.0-17.0); LYMPH % 21.6 % (9.0-44.0); LYMPHOCYTE # 2.4 TH/MM3 (1.0-4.8); MEAN CELL VOLUME 90.3 FL (80.0-100.0); MEAN CORPUSCULAR HEMOGLOBIN 29.7 PG (27.0-34.0); MEAN CORPUSCULAR HGB CONC 32.9 % (32.0-36.0); MEAN PLATELET VOLUME 7.4 FL (7.0-11.0); MONO % 12.8 % (0.0-8.0); MONOCYTE # 1.4 TH/MM3 (0-0.9); NEUT % 64.3 % (16.0-70.0); PLATELET COUNT 296 TH/MM3 (150-450); RED BLOOD COUNT 4.48 MIL/MM3 (4.50-5.90); RED CELL DISTRIBUTION WIDTH 15.9 % (11.6-17.2)
[2017-08-23 05:36] LABS: BICARBONATE 27.2 MEQ/L (21.0-32.0); CALCIUM 8.8 MG/DL (8.5-10.1); CREATININE 1.3 MG/DL (0.60-1.30); MAGNESIUM 2.5 MG/DL (1.5-2.5)
[2017-08-23] MEDS: INSULIN ASPART SUPPLEMENTAL SCALE SQ SCH ×4 (08:00→21:00)
--- NOTE | 2017-08-23 08:34 | MA ---
cc: Pierce Arredondo DO 08/22/2017 PROCEDURE: Left heart catheterization, right heart catheterization, coronary angiography, bypass angiogram, ultrasound guided access. PREPROCEDURAL DIAGNOSIS: New cardiomyopathy, acute systolic heart failure, CABG x 3. 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 MEDICATIONS: Fentanyl 50 mcg, nitro 200 mcg, heparin 4000 units, Verapamil 2.5 mg. CONTRAST USED: 70 mL. FLUOROSCOPY: 10.2 minutes. MODERATE SEDATION: 0 minutes. ESTIMATED BLOOD LOSS: 10 mL. PROCEDURAL SUMMARY: Carley Stoner is a pleasant 81-year-old male who sees my partner, Dr. Fletcher, in the office and presented with a worsening of his cardiomyopathy, as well as acute systolic heart failure. Because of this, he was recommended right and left heart catheterization to determine not only the pressures of his heart, but also if there was change in his coronary anatomy to cause his acute systolic heart failure and new cardiomyopathy. The risks, benefits and alternatives were explained to him and he consented as such. He was brought to the lab and prepped in the usual sterile fashion. The left radial artery was accessed using a modified Seldinger technique with ultrasound guidance and placement of a 5/6 Gren[place] slender sheath. This was easily aspirated and flushed. The right brachial vein previously had an IV in it and this was exchanged for a 5/6 [place] slender sheath. This was easily aspirated and flushed. A Transfer-Chris catheter was advanced up the brachial vein to around the shoulder where there was some resistance and tortuosity of the anatomy. Angiogram shows turns in the subclavian vein and so this was managed with a moderate support Whisper wire. The Transfer-Chris catheter to taken to a wedge position. Pressures, as well as oxygen saturations were done in a standard fashion on pullback throughout the heart. The Transfer-Chris catheter was removed. A JR4 was advanced over a J-wire to the ascending aorta and across the aortic valve for measurement of left ventricular pressure. This was pulled back across the aortic valve showing no significant gradient of aortic stenosis. JR4 was used for selective angiography of the right coronary artery system. JR4 was also used for selective angiography of the saphenous vein graft to the obtuse marginal. This was exchanged now for an IM catheter which was used for selective angiography of the DAMON to LAD. IM catheter was removed over a J-wire. A radial band was placed over the arteriotomy site for hemostasis. The brachial vein was planned to be pulled once ACTs were at an appropriate level. 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 FINDINGS: LEFT MAIN: known to be 100% occluded from previous cardiac catheterization. RCA: 100% occluded in the proximal portion. There is significant right sided collateral which supplies both the PDA and a PLV. DAMON TO LAD: Patent. This supplies retrograde to one of the diagonals as well as antegrade through the LAD and distally to collaterals which supplies some of the distal PLV. SAPHENOUS VEIN GRAFT TO OBTUSE MARGINAL: Proximal stent is patent with 30% ostial stenosis. Distally, the vein graft supplies 2 obtuse marginals, as well as collaterals from this to the distal PLV and PDA of the right coronary artery. Other saphenous vein graft noted to be occluded. LVEDP: 26. IMPRESSIONS: 1. New cardiomyopathy with an ejection fraction of 20-25%. 2. Acute systolic heart failure. 3. No significant change in his coronary artery disease with a CABG x 3 (2/3 grafts patent). 4. 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 RECOMMENDATIONS: 1. Mr. Stoner appears to have no significant change in his coronary anatomy and he will be recommended continued medical therapy. 2. He was previously on Xarelto for his atrial fibrillation and this will be restarted tomorrow. 3. We will continue to try to diurese him as he still has elevated left sided filling pressures. 4. He is on metoprolol succinate for not only his heart failure, but atrial fibrillation. He will continue on Losartan. He was started outpatient on enalapril, but since he is on losartan and he has had a cough since being on enalapril, this will be stopped. 5. If tomorrow he is stable, we will plan on discharging him to follow up with Dr. Fletcher in the outpatient setting. We will plan for an echo in 3 months to consider ICD therapy. Thank you for allowing me to see Carley Stoner. If there are any questions, please do not hesitate to call. DO JARED Estrella/AURA , 10:44 PM , 08:32 AM
[2017-08-23] MEDS: POLYETHYLENE GLYCOL 17 GM PKG PO SCH (08:53)
[2017-08-23] MEDS: DOCUSATE SODIUM 50 MG/SENNA 8.6 MG TAB PO SCH ×2 (08:54→21:23)
[2017-08-23] MEDS: CLOPIDOGREL 75 MG TAB PO SCH (08:54)
[2017-08-23] MEDS: predniSONE 20 MG TAB PO SCH (08:54)
[2017-08-23] MEDS: FUROSEMIDE 20 MG/2 ML VIAL IV PUSH SCH ×2 (08:55→17:38)
[2017-08-23] MEDS: GABAPENTIN 300 MG CAP PO SCH ×2 (08:55→21:23)
[2017-08-23] MEDS: ASPIRIN 81 MG CHEW TAB PO SCH (08:55)
[2017-08-23] MEDS: PANTOPRAZOLE SOD 20 MG DELAYED RELEASE TAB PO SCH (08:56)
[2017-08-23] MEDS: SODIUM CHLORIDE 0.9% FLUSH 10 ML FLUSH IV FLUSH SCH ×2 (08:56→21:25)
[2017-08-23] MEDS: RESP: ALBUTEROL 2.5 MG/IPRATROPIUM 0.5 MG NEB (SCH) NEB ×3 (09:00→20:30)
[2017-08-23] MEDS ORDERED: HEPARIN SODIUM - IV 10,000 UNITS/10 ML VIAL I-ARTERIAL ONE (11:17)
[2017-08-23] MEDS ORDERED: VERAPAMIL HCL 5 MG/2 ML VIAL OTHER ONE (11:17)
[2017-08-23] MEDS ORDERED: NITROGLYCERIN 1000 MCG/5 ML VIAL OTHER ONE (11:17)
--- NOTE | 2017-08-23 15:40 | HHI.PR ---
Subjective Remarks This is a pleasant 81 y/o male who has CHF with EF 40%, repeat EF 20%, CAD, with CABG x 3, hypertension, Atrial Fibrillation, who came to ER with Shortness of breath, he had recent Stress test EF 22%, with Diagnosis of Acute on chronic heart failure EF 20%, on Lasix, Beta Blockers, was on Entresto as outpatient, on ARBs, to continue diuresis as per on site services specialist continue Xarelto, repeat echocardiogram in 3 months. Cardiac catheterization performed today, New Cardiomyopathy with an Ejection fraction of 20-25%, Acute systolic heart failure, No significant change in his coronary artery disease with CABG x 2/3 grafts patent, Mild pulmonary hypertension type 2 due to elevated left sided filing pressures. no change in his coronary anatomy to re start Xarelto tomorrow, continue diuresis. 08/23: stable in his bedroom discussed with nurse, continue with cough and yellow to greenish sputum, added antibiotics, continue Bronchodilator, Mucolytic and incentive spirometry. Objective Vital Signs Date Time Temp Pulse Resp B/P (MAP) Pulse Ox O2 Delivery O2 Flow Rate FiO2 08/23/17 14:00 81 08/23/17 13:00 79 08/23/17 12:00 95 08/23/17 11:00 98.2 95 18 145/68 (93) 94 08/23/17 11:00 90 08/23/17 10:00 90 08/23/17 09:00 98 Nasal Cannula 2.00 08/23/17 09:00 90 08/23/17 08:00 83 08/23/17 07:15 97.9 91 18 131/93 (106) 98 08/23/17 07:00 93 08/23/17 07:00 98 Nasal Cannula 2.00 08/23/17 06:11 90 08/23/17 05:13 91 08/23/17 04:25 87 08/23/17 03:25 97.9 84 17 159/77 (104) 93 08/23/17 03:16 91 08/23/17 02:19 88 08/23/17 01:15 83 08/23/17 00:08 81 08/22/17 23:17 97.9 88 16 142/61 (88) 96 08/22/17 23:17 94 08/22/17 22:51 96 08/22/17 21:00 96 08/22/17 20:25 93 Nasal Cannula 2.00 08/22/17 20:15 104 08/22/17 19:20 95 Room Air 08/22/17 19:20 97 08/22/17 19:20 98.0 92 17 134/85 (101) 95 08/22/17 18:09 96 Room Air 08/22/17 18:09 95 139/80 (99) 96 I/O 08/22/17 08/22/17 08/22/17 08/23/17 08/23/17 08/23/17 07:00 15:00 23:00 07:00 15:00 23:00 Intake Total 480 ml Output Total 1200 ml 1600 ml Balance -1200 ml -1120 ml Intake Oral 480 ml Output Urine Total 1200 ml 1600 ml # Bowel Movements 1 Result Diagram: 08/23/17 0428 08/23/17 0402 Imaging Last Impressions Chest X-Ray 08/19/17 0000 Signed Impressions: Service Date/Time: Saturday, August 19, 2017 11:54 - CONCLUSION: 1. Compensated cardiomegaly. 2. Lungs are clear. 3. No change from prior. Arvin Dsouza MD Procedures Cardiac catheterization 08/23/17 Other Results Laboratory Tests Test 08/19/17 10:47 08/20/17 05:30 08/23/17 04:02 08/23/17 04:28 Total Creatine Kinase 51 U/L Troponin I 0.02 NG/ML B-Type Natriuretic Peptide 507 PG/ML Blood Urea Nitrogen 28 MG/DL Creatinine 1.30 MG/DL Random Glucose 95 MG/DL Calcium Level 8.8 MG/DL Magnesium Level 2.5 MG/DL Sodium Level 140 MEQ/L Potassium Level 3.7 MEQ/L Chloride Level 105 MEQ/L Carbon Dioxide Level 27.2 MEQ/L Anion Gap 8 MEQ/L Estimat Glomerular Filtration Rate 53 ML/MIN White Blood Count 11.0 TH/MM3 Red Blood Count 4.48 MIL/MM3 Hemoglobin 13.3 GM/DL Hematocrit 40.4 % Mean Corpuscular Volume 90.3 FL Mean Corpuscular Hemoglobin 29.7 PG Mean Corpuscular Hemoglobin Concent 32.9 % Red Cell Distribution Width 15.9 % Platelet Count 296 TH/MM3 Mean Platelet Volume 7.4 FL Neutrophils (%) (Auto) 64.3 % Lymphocytes (%) (Auto) 21.6 % Monocytes (%) (Auto) 12.8 % Eosinophils (%) (Auto) 1.1 % Basophils (%) (Auto) 0.2 % Neutrophils # (Auto) 7.1 TH/MM3 Lymphocytes # (Auto) 2.4 TH/MM3 Monocytes # (Auto) 1.4 TH/MM3 Eosinophils # (Auto) 0.1 TH/MM3 Basophils # (Auto) 0.0 TH/MM3 CBC Comment DIFF FINAL Differential Comment Objective Remarks GENERAL: This is a well-nourished, well-developed patient, coughing with some sob SKIN: No rashes, ecchymoses or lesions. Cool and dry. CARDIOVASCULAR: Regular rate and rhythm without murmurs, gallops, or rubs. RESPIRATORY: Decreased breath sounds equal bilaterally. No wheezes, rales, or rhonchi. GASTROINTESTINAL: Abdomen soft, non-tender, nondistended. No guarding. MUSCULOSKELETAL: Extremities without clubbing, cyanosis, or edema. NEUROLOGICAL: Awake and alert. Cranial nerves II through XII intact. Medications and IVs Current Medications Medications (Trade) Dose Ordered Sig/Tati Route Start Time Stop Time Status Last Admin (Norvasc) 10 mg DAILY PO 08/20/17 09:00 08/23/17 08:55 (Aspirin Chew) 81 mg DAILY PO 08/20/17 09:00 08/23/17 08:55 (Cymbalta Dr) 60 mg HS PO 08/19/17 21:00 08/22/17 21:39 (Neurontin) 300 mg DAILY PO 08/20/17 09:00 08/23/17 08:55 (Neurontin) 600 mg HS PO 08/19/17 21:00 08/22/17 21:39 (Toprol Xl) 50 mg HS PO 08/19/17 21:00 08/22/17 21:39 (Melatonin) 10 mg HS PRN PO 08/19/17 17:15 (Protonix) 20 mg DAILY PO 08/20/17 09:00 08/23/17 08:56 (NS Flush) 2 ml UNSCH PRN IV FLUSH 08/19/17 16:00 08/22/17 18:26 (NS Flush) 2 ml BID IV FLUSH 08/19/17 21:00 08/23/17 08:56 (Tylenol) 650 mg Q4H PRN PO 08/19/17 16:00 (Zofran Inj) 4 mg Q6H PRN IVP 08/19/17 16:00 (Narcan Inj) 0.4 mg UNSCH PRN IV PUSH 08/19/17 16:00 (Alyssa-Colace) 1 tab BID PO 08/19/17 21:00 08/23/17 08:54 (Senokot) 17.2 mg Q12H PRN PO 08/19/17 16:00 (Dulcolax Supp) 10 mg DAILY PRN RECTAL 08/19/17 16:00 (Lactulose Liq) 30 ml DAILY PRN PO 08/19/17 16:00 (D50w (Vial) Inj) 50 ml UNSCH PRN IV PUSH 08/19/17 16:15 (Glucagon Inj) 1 mg UNSCH PRN OTHER 08/19/17 16:15 (NovoLOG SUPPLEMENTAL SCALE) 1 ACHS SLIDING SCALE SQ 08/19/17 17:00 08/22/17 21:00 (Duoneb Neb) 1 ampule Q2HR NEB PRN NEB 08/19/17 18:00 (Ambien) 5 mg HS PRN PO 08/20/17 01:00 08/22/17 22:04 (Duoneb Neb) 1 ampule TID NEB NEB 08/20/17 14:00 08/23/17 09:00 (Plavix) 75 mg DAILY PO 08/20/17 14:30 08/23/17 08:54 (Apresoline Inj) 10 mg Q6H PRN IV PUSH 08/20/17 15:45 (Lasix Inj) 20 mg BID@ IV PUSH 08/21/17 09:00 Future hold 08/23/17 08:55 (Miralax) 17 gm DAILY PO 08/21/17 09:00 08/23/17 08:53 A/P Assessment and Plan (1) CHF (congestive heart failure) ICD Code: I50.9 - Heart failure, unspecified Assessment and Plan Acute on chronic systolic CHF (congestive heart failure) with exacerbation patient had a recent ECHO that shows reduced EF from baseline. EF 20%. BNP in 300s on admission. He is diuresing well continue beta-saeed but will hold further diuresis and KATHYA inhibitor secondary to worsening renal function. he had recent Stress test EF 22%, with Diagnosis of Acute on chronic heart failure EF 20%, on Lasix, Beta Blockers, was on Entresto as outpatient, on ARBs, to continue diuresis as per on site services specialist continue Xarelto, repeat echocardiogram in 3 months. Cardiac catheterization performed today, New Cardiomyopathy with an Ejection fraction of 20-25%, Acute systolic heart failure, No significant change in his coronary artery disease with CABG x 2/3 grafts patent, Mild pulmonary hypertension type 2 due to elevated left sided filing pressures. no change in his coronary anatomy to re start Xarelto tomorrow, continue diuresis. COPD exacerbation. Improved continue bronchodilator, Mucolytic and incentive spirometry, added antibiotics. will start IV Ceftriaxone and Azithromycin. MARIANO on CKD stage 3. Improved. Hypertension with mild worsening will continue present care, Hydralazine as needed. Atrial Fibrillation rate controlled to re start Xarelto tomorrow. DVT ppx scd/teds on home Xarelto Discharge Planning Plan for cardiac catheterization 08/22 Discussed with patient and nurse in the room. Discharge Planning Once cleared by on site services specialist. Kelton Tafoya MD Aug 23, 2017 15:40
[2017-08-23] MEDS ORDERED: cefTRIAXone INJ 1,000 MG in SODIUM CHLORIDE 0.9% INJ 100 ML IV SCH (17:00)
[2017-08-23] MEDS ORDERED: AZITHROMYCIN INJ 500 MG in SODIUM CHLOR 0.9% 250 ML INJ 250 ML IV SCH (17:00)
[2017-08-23] MEDS: ZOLPIDEM TARTRATE 5 MG TAB PO PRN (21:23)
[2017-08-23] MEDS: METOPROLOL SUCCINATE 50 MG EXTENDED RELEASE TAB PO SCH (21:23)
[2017-08-23] MEDS: guaiFENesin E.R. 600 MG TAB PO SCH (21:23)
[2017-08-23] MEDS: DULoxetine HCl DR 60 MG CAP PO SCH (21:23)
--- NOTE | 2017-08-23 23:56 | PD.CARD.PN ---
Subjective Subjective Remarks Patient was seen earlier today, late entry No chest pain SOB better, urinating a lot overnight Still mildly SOB with walking to the bathroom, otherwise no complaints Green mucus Objective Medications Current Medications Medications (Trade) Dose Ordered Sig/Tati Route Start Time Stop Time Status Last Admin (Norvasc) 10 mg DAILY PO 08/20/17 09:00 08/23/17 08:55 (Aspirin Chew) 81 mg DAILY PO 08/20/17 09:00 08/23/17 08:55 (Cymbalta Dr) 60 mg HS PO 08/19/17 21:00 08/23/17 21:23 (Neurontin) 300 mg DAILY PO 08/20/17 09:00 08/23/17 08:55 (Neurontin) 600 mg HS PO 08/19/17 21:00 08/23/17 21:23 (Toprol Xl) 50 mg HS PO 08/19/17 21:00 08/23/17 21:23 (Melatonin) 10 mg HS PRN PO 08/19/17 17:15 (Protonix) 20 mg DAILY PO 08/20/17 09:00 08/23/17 08:56 (NS Flush) 2 ml UNSCH PRN IV FLUSH 08/19/17 16:00 08/22/17 18:26 (NS Flush) 2 ml BID IV FLUSH 08/19/17 21:00 08/23/17 21:25 (Tylenol) 650 mg Q4H PRN PO 08/19/17 16:00 (Zofran Inj) 4 mg Q6H PRN IVP 08/19/17 16:00 (Narcan Inj) 0.4 mg UNSCH PRN IV PUSH 08/19/17 16:00 (Alyssa-Colace) 1 tab BID PO 08/19/17 21:00 08/23/17 21:23 (Senokot) 17.2 mg Q12H PRN PO 08/19/17 16:00 (Dulcolax Supp) 10 mg DAILY PRN RECTAL 08/19/17 16:00 (Lactulose Liq) 30 ml DAILY PRN PO 08/19/17 16:00 08/23/17 21:27 (D50w (Vial) Inj) 50 ml UNSCH PRN IV PUSH 08/19/17 16:15 (Glucagon Inj) 1 mg UNSCH PRN OTHER 08/19/17 16:15 (NovoLOG SUPPLEMENTAL SCALE) 1 ACHS SLIDING SCALE SQ 08/19/17 17:00 08/23/17 17:00 (Ambien) 5 mg HS PRN PO 08/20/17 01:00 08/23/17 21:23 (Plavix) 75 mg DAILY PO 08/20/17 14:30 08/23/17 08:54 (Apresoline Inj) 10 mg Q6H PRN IV PUSH 08/20/17 15:45 (Lasix Inj) 20 mg BID@,18 IV PUSH 08/21/17 09:00 Future hold 08/23/17 17:38 (Miralax) 17 gm DAILY PO 08/21/17 09:00 08/23/17 08:53 (Duoneb Neb) 1 ampule Q4HR NEB NEB 08/23/17 20:00 08/23/17 20:30 (Mucinex Er) 600 mg BID PO 08/23/17 21:00 08/23/17 21:23 Ceftriaxone Sodium 1000 mg/ Sodium Chloride 100 ml @ 200 mls/hr Q24H IV 08/23/17 17:00 08/23/17 16:53 Azithromycin 500 mg/Sodium Chloride 250 ml @ 250 mls/hr Q24H IV 08/23/17 17:00 08/23/17 17:39 Vital Signs / I&O Vital Signs Date Time Temp Pulse Resp B/P (MAP) Pulse Ox O2 Delivery O2 Flow Rate FiO2 08/23/17 23:05 103 08/23/17 22:04 110 08/23/17 21:42 104 08/23/17 20:30 96 Nasal Cannula 2.00 08/23/17 20:10 97 08/23/17 19:34 99.0 96 18 141/69 (93) 95 08/23/17 19:34 95 Nasal Cannula 2.00 08/23/17 19:03 100 08/23/17 18:00 96 08/23/17 17:00 99 08/23/17 16:00 92 08/23/17 15:00 94 08/23/17 15:00 96 Nasal Cannula 2.00 08/23/17 15:00 98.5 86 22 152/87 (108) 96 08/23/17 14:00 81 08/23/17 13:00 79 08/23/17 12:00 95 08/23/17 11:00 98.2 95 18 145/68 (93) 94 08/23/17 11:00 90 08/23/17 10:00 90 08/23/17 09:00 98 Nasal Cannula 2.00 08/23/17 09:00 90 08/23/17 08:00 83 08/23/17 07:15 97.9 91 18 131/93 (106) 98 08/23/17 07:00 93 08/23/17 07:00 98 Nasal Cannula 2.00 08/23/17 06:11 90 08/23/17 05:13 91 08/23/17 04:25 87 08/23/17 03:25 97.9 84 17 159/77 (104) 93 08/23/17 03:16 91 08/23/17 02:19 88 08/23/17 01:15 83 08/23/17 00:08 81 I/O 08/23/17 08/23/17 08/23/17 08/24/17 08/24/17 08/24/17 07:00 15:00 23:00 07:00 15:00 23:00 Intake Total 480 ml 1000 ml Output Total 1600 ml 1250 ml Balance -1120 ml -250 ml Intake Oral 480 ml 650 ml IV Total 350 ml Output Urine Total 1600 ml 1250 ml # Bowel Movements 1 Physical Exam GENERAL: NAD, AAOx3, no longer with conversational dyspnea SKIN: Warm and dry. HEAD: Atraumatic. Normocephalic. EYES: Pupils equal and round. No scleral icterus. No injection or drainage. ENT: No nasal bleeding or discharge. Mucous membranes pink and moist. NECK: Trachea midline. No JVD. CARDIOVASCULAR: Irregularly irregular RESPIRATORY: No accessory muscle use. Decreased breath sounds bilaterally GASTROINTESTINAL: Abdomen soft, non-tender, nondistended. Hepatic and splenic margins not palpable. MUSCULOSKELETAL: Extremities without clubbing, cyanosis, or edema. No obvious deformities. NEUROLOGICAL: Awake and alert. No obvious cranial nerve deficits. Motor grossly within normal limits. Five out of 5 muscle strength in the arms and legs. Normal speech. PSYCHIATRIC: Appropriate mood and affect; insight and judgment normal. Laboratory Laboratory Tests Test 08/23/17 04:02 08/23/17 04:28 Blood Urea Nitrogen 28 MG/DL Creatinine 1.30 MG/DL Random Glucose 95 MG/DL Calcium Level 8.8 MG/DL Magnesium Level 2.5 MG/DL Sodium Level 140 MEQ/L Potassium Level 3.7 MEQ/L Chloride Level 105 MEQ/L Carbon Dioxide Level 27.2 MEQ/L Anion Gap 8 MEQ/L Estimat Glomerular Filtration Rate 53 ML/MIN White Blood Count 11.0 TH/MM3 Red Blood Count 4.48 MIL/MM3 Hemoglobin 13.3 GM/DL Hematocrit 40.4 % Mean Corpuscular Volume 90.3 FL Mean Corpuscular Hemoglobin 29.7 PG Mean Corpuscular Hemoglobin Concent 32.9 % Red Cell Distribution Width 15.9 % Platelet Count 296 TH/MM3 Mean Platelet Volume 7.4 FL Neutrophils (%) (Auto) 64.3 % Lymphocytes (%) (Auto) 21.6 % Monocytes (%) (Auto) 12.8 % Eosinophils (%) (Auto) 1.1 % Basophils (%) (Auto) 0.2 % Neutrophils # (Auto) 7.1 TH/MM3 Lymphocytes # (Auto) 2.4 TH/MM3 Monocytes # (Auto) 1.4 TH/MM3 Eosinophils # (Auto) 0.1 TH/MM3 Basophils # (Auto) 0.0 TH/MM3 CBC Comment DIFF FINAL Differential Comment Assessment and Plan Problem List: (1) Acute on chronic systolic (congestive) heart failure ICD Codes: I50.23 - Acute on chronic systolic (congestive) heart failure (2) Cardiomyopathy ICD Codes: I42.9 - Cardiomyopathy, unspecified (3) Exertional dyspnea ICD Codes: R06.09 - Other forms of dyspnea Status: Acute (4) MARIANO (acute kidney injury) ICD Codes: N17.9 - Acute kidney failure, unspecified Status: Acute (5) Hypertension ICD Codes: I10 - Essential (primary) hypertension Status: Acute (6) CAD (coronary artery disease) ICD Codes: I25.10 - Atherosclerotic heart disease of [place] coronary artery without angina pectoris Status: Acute (7) Chronic atrial fibrillation ICD Codes: I48.2 - Chronic atrial fibrillation Status: Chronic Assessment and Plan 1) Acute on chronic heart failure, EF 20% Con't Lasix Probable Torsemide on discharge Con't BB Patient thought he was on Entresto outpatient, but review of the office notes shows he was started on Enalapril outpatient but already on Losartan Has had a cough, most likely not due to Enalapril, but since he's been on Losartan will continue that instead of Enalapril 2) Drop in ejection fraction Previously around 40%, now down to 20% NICM, no significant change in coronary artery disease Left side filling pressures still high, con't diuresis 3) Afib Controlled Xarelto held for anticipated LHC/RHC Restart 4) Upon discharge follow up with Dr. Fletcher Repeat echo in 3 months to evaluate for ICD 5) Coughing up green mucus Add acapella Antibiotics per primary team Pierce Arredondo DO Aug 23, 2017 23:56
[2017-08-24] VITALS (14 sets, daily range): BP systolic 98–120; BP diastolic 70–83; PULSE 76–98; RESP 16–18; TEMP 98.2–98.7; O2SAT 94–96
[2017-08-24] MEDS: RESP: ALBUTEROL 2.5 MG/IPRATROPIUM 0.5 MG NEB (SCH) NEB ×3 (00:28→08:27)
[2017-08-24] MEDS: INSULIN ASPART SUPPLEMENTAL SCALE SQ SCH ×2 (08:00→11:52)
[2017-08-24] MEDS: CLOPIDOGREL 75 MG TAB PO SCH (08:21)
[2017-08-24] MEDS: PANTOPRAZOLE SOD 20 MG DELAYED RELEASE TAB PO SCH (08:21)
[2017-08-24] MEDS: DOCUSATE SODIUM 50 MG/SENNA 8.6 MG TAB PO SCH (08:22)
[2017-08-24] MEDS: FUROSEMIDE 20 MG/2 ML VIAL IV PUSH SCH (08:22)
[2017-08-24] MEDS: guaiFENesin E.R. 600 MG TAB PO SCH (08:22)
[2017-08-24] MEDS: GABAPENTIN 300 MG CAP PO SCH (08:22)
[2017-08-24] MEDS: POLYETHYLENE GLYCOL 17 GM PKG PO SCH (08:22)
[2017-08-24] MEDS: SODIUM CHLORIDE 0.9% FLUSH 10 ML FLUSH IV FLUSH SCH (08:22)
[2017-08-24] MEDS: ASPIRIN 81 MG CHEW TAB PO SCH (08:22)
--- NOTE | 2017-08-24 12:53 | HHI.PR ---
Subjective Remarks This is a pleasant 81 y/o male who has CHF with EF 40%, repeat EF 20%, CAD, with CABG x 3, hypertension, Atrial Fibrillation, who came to ER with Shortness of breath, he had recent Stress test EF 22%, with Diagnosis of Acute on chronic heart failure EF 20%, on Lasix, Beta Blockers, was on Entresto as outpatient, on ARBs, to continue diuresis as per food specialist continue Xarelto, repeat echocardiogram in 3 months. Cardiac catheterization performed today, New Cardiomyopathy with an Ejection fraction of 20-25%, Acute systolic heart failure, No significant change in his coronary artery disease with CABG x 2/3 grafts patent, Mild pulmonary hypertension type 2 due to elevated left sided filing pressures. no change in his coronary anatomy to re start Xarelto tomorrow, continue diuresis. 08/23: stable in his bedroom discussed with nurse, continue with cough and yellow to greenish sputum, added antibiotics, continue Bronchodilator, Mucolytic and incentive spirometry. 08/24: Seen in his bedroom, no complaint, already clear for discharge to Home with [facility] no new complaint, no nausea, vomit or diarrhea. Objective Vital Signs Date Time Temp Pulse Resp B/P (MAP) Pulse Ox O2 Delivery O2 Flow Rate FiO2 08/24/17 12:07 98 08/24/17 11:17 96 Room Air 08/24/17 11:17 98.2 92 18 120/83 (95) 96 08/24/17 11:17 89 08/24/17 10:04 90 08/24/17 09:56 96 08/24/17 08:30 78 08/24/17 08:30 94 Room Air 08/24/17 08:30 98.7 87 18 119/70 (86) 94 08/24/17 08:28 96 21 08/24/17 06:26 85 08/24/17 05:06 92 08/24/17 04:25 98.5 84 16 98/71 (80) 95 08/24/17 04:25 95 Nasal Cannula 2.00 08/24/17 04:05 87 08/24/17 03:52 76 08/24/17 02:04 93 08/24/17 01:23 87 08/24/17 00:46 92 08/23/17 23:30 100 Nasal Cannula 2.00 08/23/17 23:30 98.4 89 17 96/67 (77) 100 08/23/17 23:05 103 08/23/17 22:04 110 08/23/17 21:42 104 08/23/17 20:30 96 Nasal Cannula 2.00 08/23/17 20:10 97 08/23/17 19:34 99.0 96 18 141/69 (93) 95 08/23/17 19:34 95 Nasal Cannula 2.00 08/23/17 19:03 100 08/23/17 18:00 96 08/23/17 17:00 99 08/23/17 16:00 92 08/23/17 15:00 94 08/23/17 15:00 96 Nasal Cannula 2.00 08/23/17 15:00 98.5 86 22 152/87 (108) 96 08/23/17 14:00 81 08/23/17 13:00 79 I/O 08/23/17 08/23/17 08/23/17 08/24/17 08/24/17 08/24/17 07:00 15:00 23:00 07:00 15:00 23:00 Intake Total 480 ml 1000 ml 480 ml Output Total 1600 ml 1250 ml 1725 ml Balance -1120 ml -250 ml -1245 ml Intake Oral 480 ml 650 ml 480 ml IV Total 350 ml Output Urine Total 1600 ml 1250 ml 1725 ml # Bowel Movements 1 Result Diagram: 08/23/17 0428 08/23/17 0402 Imaging Last Impressions Chest X-Ray 08/19/17 0000 Signed Impressions: Service Date/Time: Saturday, August 19, 2017 11:54 - CONCLUSION: 1. Compensated cardiomegaly. 2. Lungs are clear. 3. No change from prior. Arvin Dsouza MD Procedures Cardiac catheterization 08/23/17 Other Results Laboratory Tests Test 08/19/17 10:47 08/20/17 05:30 08/23/17 04:02 08/23/17 04:28 Total Creatine Kinase 51 U/L Troponin I 0.02 NG/ML B-Type Natriuretic Peptide 507 PG/ML Blood Urea Nitrogen 28 MG/DL Creatinine 1.30 MG/DL Random Glucose 95 MG/DL Calcium Level 8.8 MG/DL Magnesium Level 2.5 MG/DL Sodium Level 140 MEQ/L Potassium Level 3.7 MEQ/L Chloride Level 105 MEQ/L Carbon Dioxide Level 27.2 MEQ/L Anion Gap 8 MEQ/L Estimat Glomerular Filtration Rate 53 ML/MIN White Blood Count 11.0 TH/MM3 Red Blood Count 4.48 MIL/MM3 Hemoglobin 13.3 GM/DL Hematocrit 40.4 % Mean Corpuscular Volume 90.3 FL Mean Corpuscular Hemoglobin 29.7 PG Mean Corpuscular Hemoglobin Concent 32.9 % Red Cell Distribution Width 15.9 % Platelet Count 296 TH/MM3 Mean Platelet Volume 7.4 FL Neutrophils (%) (Auto) 64.3 % Lymphocytes (%) (Auto) 21.6 % Monocytes (%) (Auto) 12.8 % Eosinophils (%) (Auto) 1.1 % Basophils (%) (Auto) 0.2 % Neutrophils # (Auto) 7.1 TH/MM3 Lymphocytes # (Auto) 2.4 TH/MM3 Monocytes # (Auto) 1.4 TH/MM3 Eosinophils # (Auto) 0.1 TH/MM3 Basophils # (Auto) 0.0 TH/MM3 CBC Comment DIFF FINAL Differential Comment Objective Remarks GENERAL: This is a well-nourished, well-developed patient, coughing with some sob SKIN: No rashes, ecchymoses or lesions. Cool and dry. CARDIOVASCULAR: Regular rate and rhythm without murmurs, gallops, or rubs. RESPIRATORY: Decreased breath sounds equal bilaterally. No wheezes, rales, or rhonchi. GASTROINTESTINAL: Abdomen soft, non-tender, nondistended. No guarding. MUSCULOSKELETAL: Extremities without clubbing, cyanosis, or edema. NEUROLOGICAL: Awake and alert. Cranial nerves II through XII intact. Medications and IVs Current Medications Medications (Trade) Dose Ordered Sig/Tati Route Start Time Stop Time Status Last Admin (Norvasc) 10 mg DAILY PO 08/20/17 09:00 08/24/17 08:22 (Aspirin Chew) 81 mg DAILY PO 08/20/17 09:00 08/24/17 08:22 (Cymbalta Dr) 60 mg HS PO 08/19/17 21:00 08/23/17 21:23 (Neurontin) 300 mg DAILY PO 08/20/17 09:00 08/24/17 08:22 (Neurontin) 600 mg HS PO 08/19/17 21:00 08/23/17 21:23 (Toprol Xl) 50 mg HS PO 08/19/17 21:00 08/23/17 21:23 (Melatonin) 10 mg HS PRN PO 08/19/17 17:15 (Protonix) 20 mg DAILY PO 08/20/17 09:00 08/24/17 08:21 (NS Flush) 2 ml UNSCH PRN IV FLUSH 08/19/17 16:00 08/22/17 18:26 (NS Flush) 2 ml BID IV FLUSH 08/19/17 21:00 08/24/17 08:22 (Tylenol) 650 mg Q4H PRN PO 08/19/17 16:00 (Zofran Inj) 4 mg Q6H PRN IVP 08/19/17 16:00 (Narcan Inj) 0.4 mg UNSCH PRN IV PUSH 08/19/17 16:00 (Alyssa-Colace) 1 tab BID PO 08/19/17 21:00 08/23/17 21:23 (Senokot) 17.2 mg Q12H PRN PO 08/19/17 16:00 (Dulcolax Supp) 10 mg DAILY PRN RECTAL 08/19/17 16:00 (Lactulose Liq) 30 ml DAILY PRN PO 08/19/17 16:00 08/23/17 21:27 (D50w (Vial) Inj) 50 ml UNSCH PRN IV PUSH 08/19/17 16:15 (Glucagon Inj) 1 mg UNSCH PRN OTHER 08/19/17 16:15 (NovoLOG SUPPLEMENTAL SCALE) 1 ACHS SLIDING SCALE SQ 08/19/17 17:00 08/23/17 17:00 (Ambien) 5 mg HS PRN PO 08/20/17 01:00 08/23/17 21:23 (Plavix) 75 mg DAILY PO 08/20/17 14:30 08/24/17 08:21 (Apresoline Inj) 10 mg Q6H PRN IV PUSH 08/20/17 15:45 (Lasix Inj) 20 mg BID@ IV PUSH 08/21/17 09:00 Future hold 08/24/17 08:22 (Miralax) 17 gm DAILY PO 08/21/17 09:00 08/23/17 08:53 (Duoneb Neb) 1 ampule Q4HR NEB NEB 08/23/17 20:00 08/24/17 08:27 (Mucinex Er) 600 mg BID PO 08/23/17 21:00 08/24/17 08:22 Ceftriaxone Sodium 1000 mg/ Sodium Chloride 100 ml @ 200 mls/hr Q24H IV 08/23/17 17:00 08/23/17 16:53 Azithromycin 500 mg/Sodium Chloride 250 ml @ 250 mls/hr Q24H IV 08/23/17 17:00 08/23/17 17:39 (Xarelto) 20 mg HS PO 08/24/17 21:00 A/P Assessment and Plan (1) CHF (congestive heart failure) ICD Code: I50.9 - Heart failure, unspecified Assessment and Plan Acute on chronic systolic CHF (congestive heart failure) with exacerbation patient had a recent ECHO that shows reduced EF from baseline. EF 20%. BNP in 300s on admission. He is diuresing well continue beta-saeed but will hold further diuresis and KATHYA inhibitor secondary to worsening renal function. he had recent Stress test EF 22%, with Diagnosis of Acute on chronic heart failure EF 20%, on Lasix, Beta Blockers, was on Entresto as outpatient, on ARBs, to continue diuresis as per food specialist continue Xarelto, repeat echocardiogram in 3 months. Cardiac catheterization performed today, New Cardiomyopathy with an Ejection fraction of 20-25%, Acute systolic heart failure, No significant change in his coronary artery disease with CABG x 2/3 grafts patent, Mild pulmonary hypertension type 2 due to elevated left sided filing pressures. no change in his coronary anatomy to re start Xarelto today and continue diuresis. COPD exacerbation. Improved continue bronchodilator, Mucolytic and incentive spirometry, added antibiotics. will start IV Ceftriaxone and Azithromycin. will go home on Azithromycin on discharge. MARIANO on CKD stage 3. Improved to baseline. Hypertension controlled. Atrial Fibrillation rate controlled to re start Xarelto today DVT ppx scd/teds on home Xarelto Discussed with patient and nurse in the room. Discharge Planning okay to discharge Home with [facility] for PT as per food specialist. Kelton Tafoya MD Aug 24, 2017 12:53
[2017-08-24] MEDS ORDERED: PLAV75TA29 PO (12:57)
[2017-08-24] MEDS ORDERED: FURO1TAB62 PO (12:57)
[2017-08-24] MEDS ORDERED: AMBI5TAB PO (12:57)
[2017-08-24] MEDS ORDERED: guaiFENesin ER PO (12:57)
--- NOTE | 2017-08-24 13:00 | HHI.DS ---
Discharge Summary Admission Date Aug 20, 2017 at 15:05 Discharge Date: Aug 24, 2017 Admitting Diagnosis chf exacerbation (1) CHF (congestive heart failure) ICD Code: I50.9 - Heart failure, unspecified Diagnosis: Principal Procedures Cardiac catheterization 08/23/17 Brief History - From Admission Very pleasant 81-year-old male with h/o CHF EF 40% and repeat echo with EF 20%, CAD with triple CABG, HTN, , Afib, states over the past couple of days he has been having shortness of breath. 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 He states this is new for him. He states that he does not have any chest pain or any other concurrent complaints at this time. He states he feels worse when he moves around. He denies other specific modifying factors. Quality is hard to catch breath. Severity is progressive. 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 He states he had an outpatient x-ray that showed fluid on his lungs at [facility]. CBC/BMP: 08/23/17 0428 08/23/17 0402 Significant Findings Laboratory Tests Test 08/22/17 06:51 08/23/17 04:02 08/23/17 04:28 Blood Urea Nitrogen 32 MG/DL (7-18) 28 MG/DL (7-18) Creatinine 1.42 MG/DL (0.60-1.30) Estimat Glomerular Filtration Rate 48 ML/MIN (>89) 53 ML/MIN (>89) Red Blood Count 4.48 MIL/MM3 (4.50-5.90) Monocytes (%) (Auto) 12.8 % (0.0-8.0) Monocytes # (Auto) 1.4 TH/MM3 (0-0.9) Imaging Last Impressions Chest X-Ray 08/19/17 0000 Signed Impressions: Service Date/Time: Saturday, August 19, 2017 11:54 - CONCLUSION: 1. Compensated cardiomegaly. 2. Lungs are clear. 3. No change from prior. Arvin Dsouza MD PE at Discharge GENERAL: This is a well-nourished, well-developed patient, coughing with some sob SKIN: No rashes, ecchymoses or lesions. Cool and dry. CARDIOVASCULAR: Regular rate and rhythm without murmurs, gallops, or rubs. RESPIRATORY: Decreased breath sounds equal bilaterally. No wheezes, rales, or rhonchi. GASTROINTESTINAL: Abdomen soft, non-tender, nondistended. No guarding. MUSCULOSKELETAL: Extremities without clubbing, cyanosis, or edema. NEUROLOGICAL: Awake and alert. Cranial nerves II through XII intact. Hospital Course This is a pleasant 81 y/o male who has CHF with EF 40%, repeat EF 20%, CAD, with CABG x 3, hypertension, Atrial Fibrillation, who came to ER with Shortness of breath, he had recent Stress test EF 22%, with Diagnosis of Acute on chronic heart failure EF 20%, on Lasix, Beta Blockers, was on Entresto as outpatient, on ARBs, to continue diuresis as per patient resource specialist continue Xarelto, repeat echocardiogram in 3 months. Cardiac catheterization performed today, New Cardiomyopathy with an Ejection fraction of 20-25%, Acute systolic heart failure, No significant change in his coronary artery disease with CABG x 2/3 grafts patent, Mild pulmonary hypertension type 2 due to elevated left sided filing pressures. no change in his coronary anatomy to re start Xarelto tomorrow, continue diuresis. 08/23: stable in his bedroom discussed with nurse, continue with cough and yellow to greenish sputum, added antibiotics, continue Bronchodilator, Mucolytic and incentive spirometry. 08/24: Seen in his bedroom, no complaint, already clear for discharge to Home with [facility] no new complaint, no nausea, vomit or diarrhea. Assessment and Plan (1) CHF (congestive heart failure) ICD Code: I50.9 - Heart failure, unspecified Assessment and Plan Acute on chronic systolic CHF (congestive heart failure) with exacerbation patient had a recent ECHO that shows reduced EF from baseline. EF 20%. BNP in 300s on admission. He is diuresing well continue beta-saeed but will hold further diuresis and KATHYA inhibitor secondary to worsening renal function. he had recent Stress test EF 22%, with Diagnosis of Acute on chronic heart failure EF 20%, on Lasix, Beta Blockers, was on Entresto as outpatient, on ARBs, to continue diuresis as per patient resource specialist continue Xarelto, repeat echocardiogram in 3 months. Cardiac catheterization performed today, New Cardiomyopathy with an Ejection fraction of 20-25%, Acute systolic heart failure, No significant change in his coronary artery disease with CABG x 2/3 grafts patent, Mild pulmonary hypertension type 2 due to elevated left sided filing pressures. no change in his coronary anatomy to re start Xarelto today and continue diuresis. COPD exacerbation. Improved continue bronchodilator, Mucolytic and incentive spirometry, added antibiotics. will start IV Ceftriaxone and Azithromycin. will go home on Azithromycin on discharge. MARIANO on CKD stage 3. Improved to baseline. Hypertension controlled. Atrial Fibrillation rate controlled to re start Xarelto today DVT ppx scd/teds on home Xarelto Discussed with patient and nurse in the room. Discharge Planning okay to discharge Home with [facility] for PT as per patient resource specialist. Pt Condition on Discharge: Stable Discharge Disposition: Disch w/ Home Health Serv Discharge Time: > 30 minutes Discharge Instructions DIET: Follow Instructions for: Heart Healthy Diet Activities you can perform: Regular-No Restrictions Kelton Tafoya MD Aug 24, 2017 13:00
--- NOTE | 2017-08-24 13:05 | HHI.FF ---
Face to Face Verification Diagnosis: (1) ARF (acute renal failure) (2) Atypical chest pain (3) Exertional dyspnea (4) CAD (coronary artery disease) (5) TAMI (obstructive sleep apnea) (6) Acute on chronic systolic (congestive) heart failure Physical Therapy Order: Evaluate and Treat, Improve ambulation, Strength and gait training Home Health Nursing Order: Medical education Signs/symptoms of disease process CHF education Medication education-adverse effect Nursing assessment with vital signs I have seen patient Carley Stoner on 08/24/17. My clinical findings support the need for the requested home health care services because: Ltd mobility - disease progression I certify that my clinical findings support that this patient is homebound because: Unsafe to leave home unassisted Kelton Tafoya MD Aug 24, 2017 13:05
[2017-08-24] MEDS ORDERED: TORS20TA PO (13:40)
[2017-08-24] MEDS ORDERED: LOSA25TA PO (13:40)
--- NOTE | 2017-08-24 15:57 | PD.CARD.PN ---
Subjective Subjective Remarks SOB better, urinating a lot overnight Has continued to have a mild cough, whether laying down or sitting up Objective Vital Signs / I&O Vital Signs Date Time Temp Pulse Resp B/P (MAP) Pulse Ox O2 Delivery O2 Flow Rate FiO2 08/24/17 12:07 98 08/24/17 11:17 96 Room Air 08/24/17 11:17 98.2 92 18 120/83 (95) 96 08/24/17 11:17 89 08/24/17 10:04 90 08/24/17 09:56 96 08/24/17 08:30 78 08/24/17 08:30 94 Room Air 08/24/17 08:30 98.7 87 18 119/70 (86) 94 08/24/17 08:28 96 21 08/24/17 06:26 85 08/24/17 05:06 92 08/24/17 04:25 98.5 84 16 98/71 (80) 95 08/24/17 04:25 95 Nasal Cannula 2.00 08/24/17 04:05 87 08/24/17 03:52 76 08/24/17 02:04 93 08/24/17 01:23 87 08/24/17 00:46 92 08/23/17 23:30 100 Nasal Cannula 2.00 08/23/17 23:30 98.4 89 17 96/67 (77) 100 08/23/17 23:05 103 08/23/17 22:04 110 08/23/17 21:42 104 08/23/17 20:30 96 Nasal Cannula 2.00 08/23/17 20:10 97 08/23/17 19:34 99.0 96 18 141/69 (93) 95 08/23/17 19:34 95 Nasal Cannula 2.00 08/23/17 19:03 100 08/23/17 18:00 96 08/23/17 17:00 99 08/23/17 16:00 92 I/O 08/23/17 08/23/17 08/23/17 08/24/17 08/24/17 08/24/17 07:00 15:00 23:00 07:00 15:00 23:00 Intake Total 480 ml 1000 ml 480 ml Output Total 1600 ml 1250 ml 1725 ml Balance -1120 ml -250 ml -1245 ml Intake Oral 480 ml 650 ml 480 ml IV Total 350 ml Output Urine Total 1600 ml 1250 ml 1725 ml # Bowel Movements 1 Physical Exam GENERAL: NAD, AAOx3, no longer with conversational dyspnea SKIN: Warm and dry. HEAD: Atraumatic. Normocephalic. EYES: Pupils equal and round. No scleral icterus. No injection or drainage. ENT: No nasal bleeding or discharge. Mucous membranes pink and moist. NECK: Trachea midline. No JVD. CARDIOVASCULAR: Irregularly irregular RESPIRATORY: No accessory muscle use. Decreased breath sounds bilaterally GASTROINTESTINAL: Abdomen soft, non-tender, nondistended. Hepatic and splenic margins not palpable. MUSCULOSKELETAL: Extremities without clubbing, cyanosis, or edema. No obvious deformities. NEUROLOGICAL: Awake and alert. No obvious cranial nerve deficits. Motor grossly within normal limits. Five out of 5 muscle strength in the arms and legs. Normal speech. PSYCHIATRIC: Appropriate mood and affect; insight and judgment normal. Assessment and Plan Problem List: (1) Acute on chronic systolic (congestive) heart failure ICD Codes: I50.23 - Acute on chronic systolic (congestive) heart failure (2) Cardiomyopathy ICD Codes: I42.9 - Cardiomyopathy, unspecified (3) Exertional dyspnea ICD Codes: R06.09 - Other forms of dyspnea Status: Acute (4) MARIANO (acute kidney injury) ICD Codes: N17.9 - Acute kidney failure, unspecified Status: Acute (5) Hypertension ICD Codes: I10 - Essential (primary) hypertension Status: Acute (6) CAD (coronary artery disease) ICD Codes: I25.10 - Atherosclerotic heart disease of [place] coronary artery without angina pectoris Status: Acute (7) Chronic atrial fibrillation ICD Codes: I48.2 - Chronic atrial fibrillation Status: Chronic Assessment and Plan 1) Acute on chronic heart failure, EF 20% Change to Torsemide on discharge Con't BB Patient thought he was on Entresto outpatient, but review of the office notes shows he was started on Enalapril outpatient Has noticed a cough, tough to tell if it is from KATHYA-I, but will change to Losartan 25mg daily 2) Drop in ejection fraction Previously around 40%, now down to 20% NICM, no significant change in coronary artery disease Left side filling pressures still high, con't diuresis 3) Afib Controlled Xarelto held for anticipated LHC/RHC Restart 4) Upon discharge follow up with Dr. Fletcher Repeat echo in 3 months to evaluate for ICD Cardiovascularly stable for discharge 5) Coughing up green mucus Add acapella Antibiotics per primary team Pierce Arredondo DO Aug 24, 2017 15:57
[2017-08-24] MEDS ORDERED: RIVAROXABAN 20 MG TAB PO SCH (21:00)
== END 2017-08-24 14:18 | disposition home health service (06) | DRG 286 ==
LOC: NEPC 10:08 → NEDA 15:17 → NEDH 17:18 → NEPGCP 21:15 → OBSVTOIN 08-20 15:05 → HCIS 08-22 11:17 → HCPC 08-22 18:09
PROVIDERS: ADMIT Internal Medicine; ATTEND Internal Medicine
PROC: B2111ZZ Fluoroscopy of Multiple Coronary Arteries using Low Osmolar Contrast (ICD-10-PCS; 2017-08-22)
PROC: B2121ZZ Fluoroscopy of Single Coronary Artery Bypass Graft using Low Osmolar Contrast (ICD-10-PCS; 2017-08-22)
PROC: B2181ZZ Fluoroscopy of Left Internal Mammary Bypass Graft using Low Osmolar Contrast (ICD-10-PCS; 2017-08-22)
PROC: 4A023N8 Measurement of Cardiac Sampling and Pressure, Bilateral, Percutaneous Approach (ICD-10-PCS; principal; 2017-08-22 11:00)
DX: I13.0 Hypertensive heart and chronic kidney disease with heart failure and stage 1 through stage 4 chronic kidney disease, or unspecified chronic kidney disease (principal); I50.23 Acute on chronic systolic (congestive) heart failure; N17.9 Acute kidney failure, unspecified; I42.9 Cardiomyopathy, unspecified; E11.22 Type 2 diabetes mellitus with diabetic chronic kidney disease; J44.1 Chronic obstructive pulmonary disease with (acute) exacerbation; I25.810 Atherosclerosis of coronary artery bypass graft(s) without angina pectoris; I25.82 Chronic total occlusion of coronary artery; I27.22 Pulmonary hypertension due to left heart disease; I48.2 Chronic atrial fibrillation; N18.3 Chronic kidney disease, stage 3 (moderate); Z95.1 Presence of aortocoronary bypass graft; G47.30 Sleep apnea, unspecified; K21.9 Gastro-esophageal reflux disease without esophagitis; I25.10 Atherosclerotic heart disease of native coronary artery without angina pectoris; Z98.61 Coronary angioplasty status; Z87.891 Personal history of nicotine dependence; Z86.73 Personal history of transient ischemic attack (TIA), and cerebral infarction without residual deficits; Z79.01 Long term (current) use of anticoagulants; I25.2 Old myocardial infarction
CPT/HCPCS: 71045; 80048; 82550; 82810; 82948; 83735; 83880; 84484; 85002; 85025; 93005; 93461; 94150; 94640; 94664; 94667; 94668; 96374; C1769; C1893; G0378; G8987-GP; G8988-GP; J0456; J0696; J1644; J1815; J1940; J2250; J2370; J2920; J3010; J7050; J7512; Q9967